=== PATIENT | male | born 1950 | race Caucasian/White ===

== ENCOUNTER 2016-03-30 21:35 | Emergency (ER) | payer BC, OTHER ==
[~2016-03-30] VITALS: Ht 185.4 cm; Wt 136.5 kg
[~2016-03-30 21:35] MED LIST: CLB/200 PO; DILT120C68 PO; HYDR1TAB2 PO; OXYC20TA50 PO; XRL10 PO
[2016-03-30] MEDS ORDERED: SODIUM CHLORIDE 0.9% 1000ML 1,000 ML IV STA ×2 (22:04)
[2016-03-30] MEDS ORDERED: IBUPROFEN 800 MG TAB PO STA (22:04)
[2016-03-30] MEDS ORDERED: ACETAMINOPHEN 500 MG TAB PO STA (22:04)
[2016-03-30] MEDS ORDERED: ALBUT/IPRATROP 3MG/0.5MG NEB 3 ML VIAL INH STA (22:08)
[2016-03-30 22:21] VITALS: O2SAT 98; Ht 185.4 cm; Wt 136.5 kg
[2016-03-30] MEDS ORDERED: IBUPROFEN 200 MG TAB ONE (22:22)
[2016-03-30] MEDS ORDERED: IBUPROFEN 600 MG TAB ONE (22:23)
[2016-03-30] MEDS ORDERED: PHEN-582 PO (22:42)
--- NOTE | 2016-03-30 22:44 | DIAGNOSTIC IMAGING REPORT ---
CHEST ONE VIEW PORTABLE CLINICAL HISTORY: Sepsis dyspnea COMPARISON STUDY: 02/22/2012 FINDINGS: Mild stable cardiomegaly. Mild increase in prominence of pulmonary vasculature. Early congestive failure must be considered IMPRESSION: Possible early congestive failure Electronically signed by: Ted Gomes M.D. 03/30/2016 10:43 PM Dictated Date/Time: 03/30/2016 10:42 PM
[2016-03-30 22:57] LABS: BASO % 0.1 %; BASO ABS # 0.01 K/uL (0-0.2); COMPLETE YES; EOS % 1.3 %; IG% 0.3 %; LYMPH % 12.9 %; MEAN CELL VOLUME 86.6 fL (80-100); MEAN CORPUSCULAR HEMOGLOBIN 30.9 pg (25-34); MEAN CORPUSCULAR HGB CONC 35.7 g/dl (32-36); MONO % 6.9 %; NEUT % 78.5 %; PLATELET COUNT 195 K/uL (130-400); RED BLOOD COUNT 4.04 M/uL (4.7-6.1); WHITE BLOOD COUNT 6.96 K/uL (4.8-10.8)
[2016-03-30 23:09] LABS: PROTHROMBIN TIME (PATIENT) 10.9 SECONDS (9.0-12.0)
[2016-03-30 23:17] LABS: ALT/SGPT 28 U/L (12-78); AST/SGOT 23 U/L (15-37); BLOOD UREA NITROGEN 20 mg/dl (7-18); BUN/CREATININE RATIO 18.4 (10-20); CALCIUM 8.5 mg/dl (8.5-10.1); CARBON DIOXIDE 25 mmol/L (21-32); CHLORIDE 108 mmol/L (98-107); GLUCOSE 84 mg/dl (70-99); MAGNESIUM 1.8 mg/dl (1.8-2.4); POTASSIUM 3.7 mmol/L (3.5-5.1); SODIUM 143 mmol/L (136-145)
[2016-03-30] MEDS ORDERED: CEFTRIAXONE SOD INJ 1 GM ADDVIAL IV STA (23:18)
[2016-03-30] MEDS ORDERED: AZITHROMYCIN 250 MG TAB PO STA (23:18)
[2016-03-30 23:21] LABS: ALB/GLOB RATIO 0.9 (0.9-2); ALKALINE PHOSPHATASE 67 U/L (45-117); CKMB/CK RATIO 0.6 (0-3.0)
[2016-03-31 00:41] LABS: INFLUENZA A PCR Neg for Influ A (NEG); INFLUENZA B PCR Neg for Influ B (NEG)
[2016-03-31 01:05] VITALS: BP 126/64; PULSE 81; TEMP 37.5; O2SAT 94
[2016-03-31] MEDS ORDERED: ALBUTEROL HFA 8 GM INHALER INH STA (01:12)
[2016-03-31] MEDS ORDERED: DOXY100C2 PO (01:12)
--- NOTE | 2016-03-31 04:41 | EMERGENCY ROOM VISIT NOTE ---
History First contact with patient: 21:59 Chief Complaint: FEVER Stated Complaint: FEVER, DIFFICULTY BREATHING History of Present Illness The patient is a 65 year old male who presents to the Emergency Room with complaints of fever, chills, cough, congestion for the past day. He did receive the flu vaccine. He's had pneumonia before and symptoms of similar. Patient complains of some shortness of breath. Patient denies abdominal pain, vomiting, diarrhea, headache, neck stiffness, sore throat, earache. His tolerate by mouth fluids but has a decreased appetite. is sick with similar symptoms. Review of Systems See HPI for pertinent positives & negatives. A total of 10 systems reviewed and were otherwise negative. Past Medical/Surgical History Pulmonary emboli Social History Smoking Status: Never Smoker Smokeless Tobacco Use: No Alcohol Use: none Drug Use: none Marital Status: Housing Status: lives with family Current/Historical Medications Scheduled Doxycycline Hyclate (Vibramycin), 100 MG PO BID [id number] W/ Apap (Tylenol Cold & Flu Severe), 2 TABS PO prn ud Allergies Coded Allergies: Naproxen (Verified Allergy, Intermediate, RASH/HIVES, 03/30/16) Iodinated Contrast Media (Verified Allergy, Unknown, UNKNOWN, 03/30/16) PER CT, PT STATES THAT ALLERGY WAS "MRI DYE" NOT CONTRAST; RADIOLOGIST AWARE Physical Exam Vital Signs Date Time Temp Pulse Resp B/P Pulse Ox O2 Delivery O2 Flow Rate FiO2 03/31/16 01:05 37.5 81 20 126/64 94 Room Air 03/31/16 00:32 94 03/30/16 23:29 92 20 149/66 95 Room Air 03/30/16 22:21 98 Room Air 03/30/16 21:45 38.0 85 20 146/77 98 Room Air Pain Rating (0-10): 0 Physical Exam VITALS: Vitals are noted on the nurse's note and reviewed by myself. Vital signs febrile. GENERAL: Pleasant male, in no acute distress, nondiaphoretic, well-developed well-nourished. SKIN: The skin was without rashes, erythema, edema, or bruising. There is no tenting of the skin. Capillary reflex less than 2 seconds. HEAD: Normocephalic atraumatic. EARS: External auditory canals clear, tympanic membranes pearly sargent without erythema or effusion bilaterally. EYES: Pupils equal round and reactive to light and accommodation. Conjunctivae without injection, sclerae without icterus. Extraocular movements intact. NOSE: Patent, turbinates without inflammation or discharge. No sinus tenderness. MOUTH: Mucous membranes mildly dry. Pharynx without erythema or exudate. Uvula midline. Airway patent. Tongue does not deviate. NECK: Supple without nuchal rigidity. No lymphadenopathy. No thyromegaly. Cervical spine is nontender. No JVD. No meningeal signs HEART: Regular rate and rhythm without murmurs gallops or rubs. LUNGS: Mild diffuse and expiratory wheezes, without rales or rhonchi. No dullness to percussion. No retractions or accessory muscle use. ABDOMEN: Positive bowel sounds x 4. Normal tympanic percussion. Soft, nontender, without masses or organomegaly. Chong sign negative. No guarding or rebound tenderness. MUSCULOSKELETAL: No muscle atrophy, erythema, or edema noted. NEURO: Patient was alert and oriented to person place and time. Normal sensation to light and sharp touch. No focal neurological deficits. Medical Decision & Procedures Laboratory Results 03/30/16 22:30 Red Blood Count 4.04, Mean Corpuscular Volume 86.6, Mean Corpuscular Hemoglobin 30.9, Mean Corpuscular Hemoglobin Concent 35.7, Mean Platelet Volume 9.0, Neutrophils (%) (Auto) 78.5, Lymphocytes (%) (Auto) 12.9, Monocytes (%) (Auto) 6.9, Eosinophils (%) (Auto) 1.3, Basophils (%) (Auto) 0.1, Neutrophils # (Auto) 5.46, Lymphocytes # (Auto) 0.90, Monocytes # (Auto) 0.48, Eosinophils # (Auto) 0.09, Basophils # (Auto) 0.01 03/30/16 22:30 Test 03/30/16 22:30 03/30/16 22:32 03/30/16 22:56 White Blood Count 6.96 K/uL (4.8-10.8) Red Blood Count 4.04 M/uL (4.7-6.1) Hemoglobin 12.5 g/dL (14.0-18.0) Hematocrit 35.0 % (42-52) Mean Corpuscular Volume 86.6 fL (80-100) Mean Corpuscular Hemoglobin 30.9 pg (25-34) Mean Corpuscular Hemoglobin Concent 35.7 g/dl (32-36) Platelet Count 195 K/uL (130-400) Mean Platelet Volume 9.0 fL (7.4-10.4) Neutrophils (%) (Auto) 78.5 % Lymphocytes (%) (Auto) 12.9 % Monocytes (%) (Auto) 6.9 % Eosinophils (%) (Auto) 1.3 % Basophils (%) (Auto) 0.1 % Neutrophils # (Auto) 5.46 K/uL (1.4-6.5) Lymphocytes # (Auto) 0.90 K/uL (1.2-3.4) Monocytes # (Auto) 0.48 K/uL (0.11-0.59) Eosinophils # (Auto) 0.09 K/uL (0-0.5) Basophils # (Auto) 0.01 K/uL (0-0.2) RDW Standard Deviation 40.8 fL (36.4-46.3) RDW Coefficient of Variation 12.8 % (11.5-14.5) Immature Granulocyte % (Auto) 0.3 % Immature Granulocyte # (Auto) 0.02 K/uL (0.00-0.02) Prothrombin Time 10.9 SECONDS (9.0-12.0) Prothromb Time International Ratio 1.0 (0.9-1.1) Activated Partial Thromboplast Time 25.4 SECONDS (21.0-31.0) Partial Thromboplastin Ratio 1.0 Anion Gap 10.0 mmol/L (3-11) Est Creatinine Clear Calc Drug Dose 98.4 ml/min Estimated GFR () 81.8 Estimated GFR (Non- 70.6 BUN/Creatinine Ratio 18.4 (10-20) Calcium Level 8.5 mg/dl (8.5-10.1) Magnesium Level 1.8 mg/dl (1.8-2.4) Total Bilirubin 1.1 mg/dl (0.2-1) Aspartate Amino Transf (AST/SGOT) 23 U/L (15-37) Alanine Aminotransferase (ALT/SGPT) 28 U/L (12-78) Alkaline Phosphatase 67 U/L (45-117) Total Creatine Kinase 118 U/L (39-308) Creatine Kinase MB 0.7 ng/ml (0.5-3.6) Creatine Kinase MB Ratio 0.6 (0-3.0) Troponin I < 0.015 ng/ml (0-0.045) Pro-B-Type Natriuretic Peptide 187 pg/ml (0-900) Total Protein 7.5 gm/dl (6.4-8.2) Albumin 3.6 gm/dl (3.4-5.0) Globulin 3.9 gm/dl (2.5-4.0) Albumin/Globulin Ratio 0.9 (0.9-2) Influenza Type A (RT-PCR) Neg for Influ A (NEG) Influenza Type B (RT-PCR) Neg for Influ B (NEG) Bedside Lactic Acid Venous 0.97 mmol/L (0.90-1.70) Medications Administered Medications (Trade) Dose Ordered Sig/Debi Route Start Time Stop Time Status Last Admin Dose Admin Acetaminophen 1000 mg 1,000 mg NOW STAT PO 03/30/16 22:04 03/30/16 22:07 DC 03/30/16 22:44 1,000 MG Sodium Chloride 1,000 ml @ 999 mls/hr Q1H1M STAT IV 03/30/16 22:04 03/30/16 23:04 DC 03/30/16 22:43 999 MLS/HR Sodium Chloride (Nss 1000ml) 1,000 ml @ 125 mls/hr Q8H STAT IV 03/30/16 22:04 03/31/16 02:20 DC 03/30/16 22:43 125 MLS/HR Albuterol/ Ipratropium (Duoneb) 3 ml NOW STAT INH 03/30/16 22:08 03/30/16 22:09 DC 03/30/16 22:44 3 ML Ibuprofen (Advil Tab) 200 mg STK-MED ONCE .ROUTE 03/30/16 22:22 03/30/16 22:25 DC 03/30/16 22:44 200 MG Ibuprofen (Motrin Tab) 600 mg STK-MED ONCE .ROUTE 03/30/16 22:23 03/30/16 22:25 DC 03/30/16 22:45 600 MG Ceftriaxone Sodium (Rocephin Inj) 1 gm NOW STAT IV 03/30/16 23:18 03/30/16 23:20 DC 03/31/16 00:02 1 GM Azithromycin (Zithromax Tab) 500 mg NOW STAT PO 03/30/16 23:18 03/30/16 23:20 DC 03/31/16 00:02 500 MG Albuterol (Ventolin Hfa Inhaler) 2 puffs ONE STAT INH 03/31/16 01:12 03/31/16 01:13 DC 03/31/16 01:18 2 PUFFS ED Course Prior records/ancillary studies reviewed. Triage Nursing notes reviewed. Additional history obtained from family The patient's history was concerning for fever. Differential diagnosis: Etiologies such as viral syndrome, otitis, pharyngitis, pneumonia, influenza, meningitis, urinary tract infection, sepsis, bacteremia, as well as others were entertained. Physical examination: Patient was alert, interactive ER treatment provided: Nebulizer, Rocephin, Zithromax, steroids On reassessment the patient felt better. Diagnostics interpreted by me: EKG: Normal sinus, no acute ST-T wave changes, right bundle branch block, normal rate. Impression right bundle branch block interpreted by myself unchanged from prior per chart review The labs revealed no leukocytosis. Negative flu. Normal BNP negative lactic acid Imaging studies: Chest x-ray concerning for right lower lobe pneumonia per my interpretation. No pneumothorax This appears to be consistent with pneumonia. Patient felt much better after being medicated as above. Walking pulse ox is 95%. He requested to leave. I felt this is reasonable. He had no white count. Negative lactic acid. He was not hypoxic. He was advised to rest, take antibiotics as directed and to follow -up family care in a few days or here in the ER sooner for high fevers, lethargy , difficulty breathing, worsening signs or symptoms or as needed. Patient had no signs of meningitis. No overt signs of sepsis. By the evaluation outlined above emergent etiologies such as otitis, pharyngitis, meningitis, urinary tract infection, sepsis, bacteremia, as well as others were deemed relatively unlikely. The pt informed about the findings as listed above. All questions were answered and pleased with the treatment. Return instructions were outlined and the patient was discharged in stable condition. Outpatient prescription management: doxy Referral: The patient was referred back to their primary care physician for follow-up in 2 to 3 days for a recheck of the current condition. 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 You were given medications in the ER that can affect your ability to safely function or operate a vehicle. Doxycycline 100mg: Take one pill twice daily for seven days for your infection. Take with food, but avoid dairy. Avoid prolonged sun exposure since this medication makes you temporarily more susceptible to sunburns. All antibiotics can cause diarrhea. If this occurs and you feel worse or it does not resolve in 1-2 days follow up with your doctor or return to the Emergency Department as this could be signs of serious underlying problems. Any medication can cause an allergic reaction, stop the pills immediately and return to the ER for rash, hives, breathing difficulties, or swelling. Albuterol Inhaler: Take 2 puffs four times daily for seven days, then as needed. Acetaminophen(Tylenol) may be used for fever or pain. Use 1000mg every six hours as needed. Avoid using more than 3000mg in a 24 hour period. AND/OR Ibuprofen(Motrin, Advil) may be used for fever or pain. Use 600mg every six hours as needed. Take with food. Avoid using more than 2400mg in a 24 hour period. Do not use 2400mg per day for more than three consecutive days without physician direction. Prolonged inappropriate use can lead to stomach upset or ulcers. Controlling your fever with Tylenol and Ibuprofen as above will make you feel better. Rest and drink plenty of fluids. Avoid strenuous activity until your symptoms resolve and your breathing returns to normal. Continue current medications. Return to the ER for chest pain, difficulty breathing, persistent fevers, vomiting, worsening of your condition, or as needed. Follow-up with family care in 2-3 days. Work Instructions Return To Work: 2 days Problem Qualifiers Primary Impression: Pneumonia Pneumonia type: due to unspecified organism Laterality: right Lung location : lower lobe of lung Qualified Codes: J18.1 - Lobar pneumonia, unspecified organism
[2016-09-04] MEDS ORDERED: TPRSR25 PO (13:53)
[2016-09-04] MEDS ORDERED: RIVA1TAB4 PO (14:46)
[2016-09-15] MEDS ORDERED: BTP80 PO (11:15)
[2016-10-11] MEDS ORDERED: SOTA120T6 PO (14:59)
== END 2016-03-31 01:22 | disposition home or self-care (01) ==
LOC: C.EDB 21:37 → C.EDC 03-31 01:22
DX: J18.1 Lobar pneumonia, unspecified organism (principal); Z86.711 Personal history of pulmonary embolism

== ENCOUNTER 2016-09-01 21:42 | Inpatient (IN) | payer OTHER ==
[~2016-09-01] VITALS: Ht 182.9 cm; Wt 136.9 kg
[~2016-09-01 21:42] MED LIST changes: -CLB/200 PO; -DILT120C68 PO; +DOXY100C2 PO; -HYDR1TAB2 PO; -OXYC20TA50 PO; +PHEN-582 PO; -XRL10 PO
[2016-09-01] MEDS ORDERED: DILTIAZEM HCL 5 MG/ML 5 ML VIAL ONE (22:02)
[2016-09-01] MEDS ORDERED: ACETAMINOPHEN 500 MG TAB PO STA (22:05)
[2016-09-01] MEDS ORDERED: DILTIAZEM HCL 5 MG/ML 5 ML VIAL IV STA (22:22)
[2016-09-01 22:46] LABS: PARTIAL THROMBOPLASTIN RATIO 0.9; PROTHROMBIN TIME (PATIENT) 10.9 SECONDS (9.0-12.0)
--- NOTE | 2016-09-01 22:47 | DIAGNOSTIC IMAGING REPORT ---
CHEST ONE VIEW PORTABLE CLINICAL HISTORY: Sepsis CHEST PAIN COMPARISON STUDY: 03/30/2016 FINDINGS: The heart remains enlarged. There is mild pulmonary venous hypertension. There is no focal pulmonary consolidation. There are no pleural effusions. There is a scoliosis.[ IMPRESSION: Cardiomegaly and mild pulmonary venous hypertension. No evidence of focal pulmonary consolidation Electronically signed by: Jake Smith M.D. 09/01/2016 10:46 PM Dictated Date/Time: 09/01/2016 10:45 PM
[2016-09-01 22:54] LABS: BASO % 0.2 %; BASO ABS # 0.02 K/uL (0-0.2); COMPLETE YES; EOS % 0.3 %; HEMATOCRIT 39.1 % (42-52); IG% 0.3 %; LYMPH % 17.6 %; LYMPH ABS # 2.09 K/uL (1.2-3.4); MEAN CELL VOLUME 89.5 fL (80-100); MEAN CORPUSCULAR HEMOGLOBIN 31.1 pg (25-34); MEAN CORPUSCULAR HGB CONC 34.8 g/dl (32-36); MEAN PLATELET VOLUME 9.7 fL (7.4-10.4); MONO % 7.2 %; NEUT % 74.4 %; PLATELET COUNT 297 K/uL (130-400); RED BLOOD COUNT 4.37 M/uL (4.7-6.1)
[2016-09-01 22:56] LABS: BUN/CREATININE RATIO 16.9 (10-20); CREATININE 1.3 mg/dl (0.60-1.40); POTASSIUM 3.8 mmol/L (3.5-5.1)
[2016-09-01 22:59] LABS: ALB/GLOB RATIO 0.9 (0.9-2)
[2016-09-01] MEDS ORDERED: LACTATED RINGER'S 1000ML 1,000 ML IV SCH (23:15)
[2016-09-01 23:22] LABS: MAGNESIUM 1.9 mg/dl (1.8-2.4)
[2016-09-01] MEDS ORDERED: DILTIAZEM BOLUS / DRIP IV STA (23:22)
[2016-09-01 23:39] LABS: THYROID STIMULATING HORMONE 1.54 uIu/ml (0.300-4.500)
[2016-09-01] MEDS ORDERED: HEPARIN IV LOW DOSE NO BOLUS SCH (23:40)
[2016-09-01] MEDS ORDERED: POTASSIUM CHLORIDE 10 MEQ TABCR PO STA (23:43)
[2016-09-01] MEDS ORDERED: METOPROLOL TARTRATE 50 MG TAB PO STA (23:44)
[2016-09-01] MEDS ORDERED: DILTIAZEM HCL INJ 125 MG in DEXTROSE 5% 100ML IV PRN (23:45)
[2016-09-02] VITALS (7 sets, daily range): BP systolic 113–140; BP diastolic 57–80; PULSE 69–116; TEMP 36.5–36.9; O2SAT 92–97; Ht 182.9 cm; Wt 136.9 kg
[2016-09-02] MEDS ORDERED: HEPARIN 25000 UNIT/500 ML D5W ONE (00:21)
[2016-09-02] MEDS ORDERED: METHYLPREDNISOLONE IV 125 MG in SYRINGE 0 ML IV STA (00:34)
--- NOTE | 2016-09-02 00:35 | EMERGENCY ROOM VISIT NOTE ---
History Report prepared by Chacorta: Dhara Heath Under the Supervision of: Dr. Alvino Townsend M.D. First contact with patient: 22:04 Chief Complaint: CHEST PAIN Stated Complaint: CHEST PAIN History of Present Illness The patient is a 66 year old male who presents to the Emergency Room with complaints of constant chest pain beginning 7 hours ago. The patient states that he has a history of atrial fibrillation and blood clots and reports that he is not on any blood thinners or medications. He notes that about 7 hours ago he was on a walk and began feeling some chest pain and pain with swallowing. He describes the pain as a soreness and notes that he has also been feeling slightly short of breath. The patient's states that the patient does get pneumonia easily and he has a family history of heart attacks. The patient states that he was initially diagnosed with atrial fibrillation 7 years ago and could not feel his fibrillation at that time either. He denies any recent illness, vomiting, diarrhea, LOC, lightheadedness, palpitations, cough, and history of heart attack. He reports that his pain is worsened with inhalation. Source of History: patient, spouse/significant other Onset: 7 hours ago Position: chest Quality: other (soreness) Modifying Factors (Worsening): other (inhalation) Associated Symptoms: + SOB, No LOC, No cough, No vomiting, No diarrhea Note: He denies any recent illness, lightheadedness, palpitations, and history of heart attack. Review of Systems See HPI for pertinent positives & negatives. A total of 10 systems reviewed and were otherwise negative. Past Medical & Surgical Medical Problems: (1) Afib (2) Atrial fibrillation (3) Hx of blood clots Family History FH: heart attack Social History Smoking Status: Never Smoker Alcohol Use: none Drug Use: none Marital Status: Housing Status: lives with family Current/Historical Medications No Active Prescriptions or Reported Meds Allergies Coded Allergies: Naproxen (Verified Allergy, Intermediate, RASH/HIVES, 09/01/16) Iodinated Contrast Media (Verified Allergy, Unknown, UNKNOWN, 09/01/16) PER CT, PT STATES THAT ALLERGY WAS "MRI DYE" NOT CONTRAST; RADIOLOGIST AWARE Physical Exam Vital Signs Date Time Temp Pulse Resp B/P (MAP) Pulse Ox O2 Delivery O2 Flow Rate FiO2 09/01/16 23:31 113 16 122/76 97 09/01/16 23:16 128 15 110/85 96 09/01/16 23:01 110 16 118/95 94 09/01/16 22:46 121 14 81/58 94 09/01/16 22:41 121/63 09/01/16 22:39 111/80 09/01/16 22:37 112 22 108/65 94 09/01/16 22:35 111/70 09/01/16 22:33 103/77 09/01/16 22:32 129 18 95 09/01/16 22:31 120/73 09/01/16 22:30 93/75 09/01/16 22:28 121/69 09/01/16 22:27 151 21 95 09/01/16 22:26 119/81 09/01/16 22:24 108/84 09/01/16 22:22 133 20 118/96 94 09/01/16 22:20 130/85 09/01/16 22:19 105/84 09/01/16 22:17 149 17 120/70 95 09/01/16 22:15 105/81 09/01/16 22:13 104/82 09/01/16 22:12 152 26 93 09/01/16 22:11 116/81 09/01/16 22:10 97 Room Air 09/01/16 22:10 97 Room Air 09/01/16 22:09 135/87 09/01/16 22:07 89 19 97/58 93 09/01/16 22:02 169 14 09/01/16 22:00 172 09/01/16 22:00 128/96 09/01/16 21:45 39.0 167 18 120/73 94 Room Air Physical Exam Constitutional: Vital signs reviewed. Eyes: Pupils are equal round reactive to light. Conjunctiva are noninjected. ENT: Pharynx is clear without erythema or exudate. Mucous membranes are moist. Neck supple without meningeal signs. Respiratory: Clear to auscultation bilaterally. Breath sounds are equal bilaterally. Cardiovascular: Tachycardic rate at 175 and rhythm. No rubs or gallops. GI: Soft, nondistended and nontender. Bowel sounds are present. Musculoskeletal: No peripheral edema. No lower extremity tenderness. Integumentary: No cyanosis. Neurological: The patient is awake and alert. No focal deficits. Psychiatric: Normal affect. Medical Decision & Procedures ER Provider Diagnostic Interpretation: X-ray results as stated below per interpretation by me and the radiologist: CHEST ONE VIEW PORTABLE FINDINGS: The heart remains enlarged. There is mild pulmonary venous hypertension. There is no focal pulmonary consolidation. There are no pleural effusions. There is a scoliosis.[ IMPRESSION: Cardiomegaly and mild pulmonary venous hypertension. No evidence of focal pulmonary consolidation Electronically signed by: Jake Smith M.D. 09/01/2016 10:46 PM Dictated Date/Time: 09/01/2016 10:45 PM Laboratory Results 09/01/16 22:10 Red Blood Count 4.37, Mean Corpuscular Volume 89.5, Mean Corpuscular Hemoglobin 31.1, Mean Corpuscular Hemoglobin Concent 34.8, Mean Platelet Volume 9.7, Neutrophils (%) (Auto) 74.4, Lymphocytes (%) (Auto) 17.6, Monocytes (%) (Auto) 7.2, Eosinophils (%) (Auto) 0.3, Basophils (%) (Auto) 0.2, Neutrophils # (Auto) 8.86, Lymphocytes # (Auto) 2.09, Monocytes # (Auto) 0.86, Eosinophils # (Auto) 0.04, Basophils # (Auto) 0.02 09/01/16 22:10 Test 09/01/16 22:10 09/01/16 22:16 09/01/16 22:45 White Blood Count 11.90 K/uL (4.8-10.8) Red Blood Count 4.37 M/uL (4.7-6.1) Hemoglobin 13.6 g/dL (14.0-18.0) Hematocrit 39.1 % (42-52) Mean Corpuscular Volume 89.5 fL (80-100) Mean Corpuscular Hemoglobin 31.1 pg (25-34) Mean Corpuscular Hemoglobin Concent 34.8 g/dl (32-36) Platelet Count 297 K/uL (130-400) Mean Platelet Volume 9.7 fL (7.4-10.4) Neutrophils (%) (Auto) 74.4 % Lymphocytes (%) (Auto) 17.6 % Monocytes (%) (Auto) 7.2 % Eosinophils (%) (Auto) 0.3 % Basophils (%) (Auto) 0.2 % Neutrophils # (Auto) 8.86 K/uL (1.4-6.5) Lymphocytes # (Auto) 2.09 K/uL (1.2-3.4) Monocytes # (Auto) 0.86 K/uL (0.11-0.59) Eosinophils # (Auto) 0.04 K/uL (0-0.5) Basophils # (Auto) 0.02 K/uL (0-0.2) RDW Standard Deviation 43.3 fL (36.4-46.3) RDW Coefficient of Variation 13.2 % (11.5-14.5) Immature Granulocyte % (Auto) 0.3 % Immature Granulocyte # (Auto) 0.03 K/uL (0.00-0.02) Prothrombin Time 10.9 SECONDS (9.0-12.0) Prothromb Time International Ratio 1.0 (0.9-1.1) Activated Partial Thromboplast Time 24.1 SECONDS (21.0-31.0) Partial Thromboplastin Ratio 0.9 Anion Gap 7.0 mmol/L (3-11) Est Creatinine Clear Calc Drug Dose 80.1 ml/min Estimated GFR () 66.4 Estimated GFR (Non- 57.3 BUN/Creatinine Ratio 16.9 (10-20) Calcium Level 9.0 mg/dl (8.5-10.1) Magnesium Level 1.9 mg/dl (1.8-2.4) Total Bilirubin 1.1 mg/dl (0.2-1) Aspartate Amino Transf (AST/SGOT) 39 U/L (15-37) Alanine Aminotransferase (ALT/SGPT) 47 U/L (12-78) Alkaline Phosphatase 66 U/L (45-117) Total Protein 7.7 gm/dl (6.4-8.2) Albumin 3.7 gm/dl (3.4-5.0) Globulin 4.0 gm/dl (2.5-4.0) Albumin/Globulin Ratio 0.9 (0.9-2) Thyroid Stimulating Hormone (TSH) 1.540 uIu/ml (0.300-4.500) Bedside Lactic Acid Venous 1.15 mmol/L (0.90-1.70) Bedside Troponin I < 0.030 ng/ml (0-0.045) Laboratory results as reviewed by me. Medications Administered Medications (Trade) Dose Ordered Sig/Debi Route Start Time Stop Time Status Last Admin Dose Admin Diltiazem HCl (Cardizem Inj) 25 mg STK-MED ONCE .ROUTE 09/01/16 22:02 09/01/16 22:03 DC 09/01/16 22:24 10 MG Acetaminophen (Tylenol Tab) 1,000 mg NOW STAT PO 09/01/16 22:05 09/01/16 22:08 DC 09/01/16 22:26 1,000 MG Diltiazem HCl (Cardizem Inj) 10 mg NOW STAT IV 09/01/16 22:22 09/01/16 22:23 DC 09/01/16 22:25 10 MG ECG Indication: chest pain Rate (beats per minute): 174 Rhythm: atrial fibrillation Findings: nonspecific-ST abn, RBBB ED Course 2200: The patient was evaluated in room C2. A complete history and physical exam was performed. 2204: Tylenol Tab 1000mg PO. Cardizem Inj 25mg. 222: I reevaluated the patient. His heart rate is in the 140s now. 2222: Cardizem Inj 10mg IV. 2236: He is in the 130s now and is normotensive. 2246: I reevaluated the patient and his heart rate is in the 110-120s. 2301: I spoke with Dr. Gordon of [facility]. We discussed the patient and his results. The patient will be further evaluated by Dr. Gordon. 2320: The heart rate is back up into the 140s. Dr. Gordon is talking to him and will decide whether or not to give him a CT of the chest to rule out PE. He has an allergy to contrast that gives him hives. He will be started on a Cardizem drip. Medical Decision This is a 66-year-old male who presents with chest pain and tachycardia and fever. Differential diagnosis includes A. fib with RVR, acute coronary syndrome , pneumonia, pulmonary embolism, UTI, sepsis. I did perform a limited focused review of portions of the patient's old chart on the electronic medical record. The patient was seen here in March and was diagnosed with pneumonia. I did evaluate the patient as noted above. The patient is presenting with chest pain starting several hours ago. He does not notice that he is tachycardic. He is also febrile here. His states that he gets pneumonia easily. He denies any coughing. IV access was established. The patient was placed on a continuous supervisor weaving. I did order and personally review the patient's 12-lead EKG and chest x-ray as described above. He does have A. fib with RVR with heart rate in the 170s. He was treated with IV Cardizem 2. His heart rate did improve significantly and went down to the 1 teens and 120s. It did come up again and I did start him on a Cardizem drip at 10 mg an hour IV. I did order and review the patient's blood work as noted in the electronic medical record. His white blood cell count is elevated. Troponin is negative. I did reassess the patient multiple times. I did discuss the test results with the patient. I was considering a CT of the chest to rule out PE but the patient states he has an allergy to contrast dye. I did discuss the case with Dr. Gordon who stated that he would place the patient on anticoagulation anyway because of the A. fib. He will work him up further in the hospital. Medication Reconcilliation Current Medication List: was personally reviewed by me Blood Pressure Screening Patient's blood pressure: Elevated blood pressure Blood pressure disposition: Elevated BP felt to be situational Consults Time Called: 2300 Consulting Physician: Dr. Evan Jeff Returned Call: [address] [facility]. We discussed the patient and his results. The patient will be further evaluated by Dr. Gordon. Impression Primary Impression: Atrial fibrillation with RVR Additional Impressions: Acute chest pain Febrile illness Critical Care I have personally spent 35 minutes of critical care time in the direct management of this patient. This includes bedside care, interpretation of diagnostic studies, and testing, discussion with consultants, patient, and family members, and other required patient management activities. This 35 minutes is in excess of all separately billable procedures. Scribe Attestation The scribe's documentation has been prepared under my direct and personally reviewed by me in its entirety. I confirm that the note above accurately reflects all work, treatment, procedures, and medical decision making performed by me. Departure Information Dispostion Being Evaluated By Hospitalist Prescriptions No Active Prescriptions or Reported Meds Referrals Aldo Castro D.O. (PCP) Patient Instructions My [facility] Problem Qualifiers
[2016-09-02] MEDS ORDERED: DiphenhydrAMINE INJ 25 MG in SYRINGE 0 ML IV ONE (00:45)
[2016-09-02] MEDS ORDERED: DEXTROSE 50% 50 ML SYR IV PRN (00:45)
[2016-09-02] MEDS ORDERED: TRAMADOL HCL 50 MG TAB PO PRN (00:45)
[2016-09-02] MEDS ORDERED: ACETAMINOPHEN 325 MG TAB PO PRN (00:45)
[2016-09-02] MEDS ORDERED: LACTATED RINGER'S 1000ML 1,000 ML IV ONE (00:45)
[2016-09-02] MEDS ORDERED: MoRPHine SULFATE 4 MG/ML 1 ML CARP\\VIAL IV PRN (00:45)
[2016-09-02] MEDS ORDERED: ONDANSETRON INJ 2 MG/ML 2 ML VIAL IV PRN (00:45)
[2016-09-02] MEDS ORDERED: LORAZEPAM 2 MG/ML 1 ML VIAL IV PRN (00:45)
[2016-09-02] MEDS ORDERED: GLUCAGON FOR INJ 1 MG VIAL SQ PRN (00:45)
[2016-09-02] MEDS ORDERED: OPTIRAY 320 IV PRN (01:15)
[2016-09-02] MEDS ORDERED: DiphenhydrAMINE HCL 50 MG/ML VIAL ONE (01:22)
[2016-09-02] MEDS ORDERED: METHYLPREDNISOLONE 125 MG VIAL ONE (01:22)
[2016-09-02] MEDS ORDERED: MAGNESIUM SULFATE 1GM / D5W 1 GM in PREMIXED IN D5W 100 ML IV ONE (02:00)
[2016-09-02] MEDS ORDERED: INSULIN GLARGINE SOLOSTAR 100 UNITS/ML 3 ML PEN SC ONE (02:00)
[2016-09-02] MEDS ORDERED: LORAZEPAM INJ 0.5 MG in SYRINGE 0.75 ML IV PRN (02:15)
[2016-09-02 02:30] LABS: URINE APPEARANCE CLEAR (CLEAR); URINE BILIRUBIN NEG (NEG); URINE COLOR YELLOW; URINE NITRITE NEG (NEG); URINE PH 5.5 (4.5-7.5); URINE SPECIFIC GRAVITY 1.023 (1.000-1.030); UROBILINOGEN NEG (NEG); ZZUR CULT IF INDIC CLEAN CATCH NO
[2016-09-02 02:33] LABS: MANUAL MICROSCOPIC REQUIRED? NO; REVIEW REQ? NO
--- NOTE | 2016-09-02 05:17 | History and Physical ---
History & Physical Date & Time of Service: Sep 02, 2016 at 05:17 Chief Complaint: Chest pain shortness of breath Primary Care Physician: Aldo Castro D.OJosie History of Present Illness Source: patient, clinic records, hospital records Recent confinement 2012 under orthopedic service for knee surgery. Yesterday patient woke up in the afternoon. He noted pleuritic left-sided chest discomfort nonradiating with shortness of breath. Ankles kind of swollen as per . No cough symptoms. No complaints of palpitations. Later on patient noted by to be febrile. At the emergency room, patient noted to be in rapid A. fib. Cardizem bolus followed by initiation of Cardizem drip. Chest discomfort a little better. 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 AILEEN as per records, patient yet to go for a sleep study Hyperlipidemia as per records Past tobacco abuse (not very long though as per ) Surgeries : Orthopedic procedures Dental surgery Tonsillectomy adenoidectomy Family History FH: heart attack Social History Smoking Status: Former Smoker Drug Use: none Marital Status: Housing status: lives with family Immunizations History of Influenza Vaccine: No History of Tetanus Vaccine?: Yes History of Pneumococcal: No History of Hepatitis B Vaccine: Yes Multi-Drug Resistant Organisms History of MDRO: No Allergies Coded Allergies: Naproxen (Verified Allergy, Intermediate, RASH/HIVES, 09/01/16) Iodinated Contrast Media (Verified Allergy, Unknown, UNKNOWN, 09/01/16) PER CT, PT STATES THAT ALLERGY WAS "MRI DYE" NOT CONTRAST; RADIOLOGIST AWARE Home Medications No Active Prescriptions or Reported Meds Review of Systems As per history of present illness, all other ROS negative Physical Exam Vital Signs Date Time Temp Pulse Resp B/P (MAP) Pulse Ox O2 Delivery O2 Flow Rate FiO2 09/02/16 04:00 Room Air 09/02/16 03:26 36.5 78 20 118/80 (93) 92 Room Air 09/02/16 01:50 36.9 116 18 119/57 93 Room Air 09/02/16 01:27 119 16 119/90 93 Room Air 09/02/16 01:01 37.3 105/74 09/02/16 00:55 104/67 09/02/16 00:51 115 22 94 7/22/17 00:36 137 24 95 09/02/16 00:21 117 29 95 09/02/16 00:06 119 21 95 09/01/16 23:51 141 23 96 09/01/16 23:36 120 16 95 09/01/16 23:31 113 16 122/76 97 09/01/16 23:16 128 15 110/85 96 09/01/16 23:01 110 16 118/95 94 09/01/16 22:46 121 14 81/58 94 09/01/16 22:41 121/63 09/01/16 22:39 111/80 09/01/16 22:37 112 22 108/65 94 09/01/16 22:35 111/70 09/01/16 22:33 103/77 09/01/16 22:32 129 18 95 09/01/16 22:31 120/73 09/01/16 22:30 93/75 09/01/16 22:28 121/69 09/01/16 22:27 151 21 95 09/01/16 22:26 119/81 09/01/16 22:24 108/84 09/01/16 22:22 133 20 118/96 94 09/01/16 22:20 130/85 09/01/16 22:19 105/84 09/01/16 22:17 149 17 120/70 95 09/01/16 22:15 105/81 09/01/16 22:13 104/82 09/01/16 22:12 152 26 93 09/01/16 22:11 116/81 09/01/16 22:10 97 Room Air 09/01/16 22:10 97 Room Air 09/01/16 22:09 135/87 09/01/16 22:07 89 19 97/58 93 09/01/16 22:02 169 14 09/01/16 22:00 172 09/01/16 22:00 128/96 09/01/16 21:45 39.0 167 18 120/73 94 Room Air General Appearance: + pertinent finding (obese) Head: normocephalic, + pertinent finding (alopecia) Eyes: + pertinent finding (pink palpebral conjunctivae, dry buccal mucosa) Neck: + pertinent finding (short) Respiratory/Chest: + decreased breath sounds Cardiovascular: + tachycardia, + irregularly irregular Abdomen/GI: + pertinent finding (some distention) Extremities/Musculoskelatal: non-tender, + pertinent finding (minimal lower extremity swelling) Neurologic/Psych: alert Skin: normal color Diagnostics Laboratory Results Results Past 24 Hours Test 09/01/16 22:10 09/01/16 22:16 09/01/16 22:45 09/02/16 02:00 Range/Units White Blood Count 11.90 4.8-10.8 K/uL Red Blood Count 4.37 4.7-6.1 M/uL Hemoglobin 13.6 14.0-18.0 g/dL Hematocrit 39.1 42-52 % Mean Corpuscular Volume 89.5 80-100 fL Mean Corpuscular Hemoglobin 31.1 25-34 pg Mean Corpuscular Hemoglobin Concent 34.8 32-36 g/dl Platelet Count 297 130-400 K/uL Mean Platelet Volume 9.7 7.4-10.4 fL Neutrophils (%) (Auto) 74.4 % Lymphocytes (%) (Auto) 17.6 % Monocytes (%) (Auto) 7.2 % Eosinophils (%) (Auto) 0.3 % Basophils (%) (Auto) 0.2 % Neutrophils # (Auto) 8.86 1.4-6.5 K/uL Lymphocytes # (Auto) 2.09 1.2-3.4 K/uL Monocytes # (Auto) 0.86 0.11-0.59 K/uL Eosinophils # (Auto) 0.04 0-0.5 K/uL Basophils # (Auto) 0.02 0-0.2 K/uL RDW Standard Deviation 43.3 36.4-46.3 fL RDW Coefficient of Variation 13.2 11.5-14.5 % Immature Granulocyte % (Auto) 0.3 % Immature Granulocyte # (Auto) 0.03 0.00-0.02 K/uL Prothrombin Time 10.9 9.0-12.0 SECONDS Prothromb Time International Ratio 1.0 0.9-1.1 Activated Partial Thromboplast Time 24.1 21.0-31.0 SECONDS Partial Thromboplastin Ratio 0.9 Sodium Level 141 136-145 mmol/L Potassium Level 3.8 3.5-5.1 mmol/L Chloride Level 108 98-107 mmol/L Carbon Dioxide Level 26 21-32 mmol/L Anion Gap 7.0 3-11 mmol/L Blood Urea Nitrogen 22 7-18 mg/dl Creatinine 1.30 0.60-1.40 mg/dl Est Creatinine Clear Calc Drug Dose 80.1 ml/min Estimated GFR () 66.4 Estimated GFR (Non- 57.3 BUN/Creatinine Ratio 16.9 10-20 Random Glucose 119 70-99 mg/dl Calcium Level 9.0 8.5-10.1 mg/dl Magnesium Level 1.9 1.8-2.4 mg/dl Total Bilirubin 1.1 0.2-1 mg/dl Aspartate Amino Transf (AST/SGOT) 39 15-37 U/L Alanine Aminotransferase (ALT/SGPT) 47 12-78 U/L Alkaline Phosphatase 66 45-117 U/L Total Protein 7.7 6.4-8.2 gm/dl Albumin 3.7 3.4-5.0 gm/dl Globulin 4.0 2.5-4.0 gm/dl Albumin/Globulin Ratio 0.9 0.9-2 Thyroid Stimulating Hormone (TSH) 1.540 0.300-4.500 uIu/ml Bedside Lactic Acid Venous 1.15 0.90-1.70 mmol/L Bedside Troponin I < 0.030 0-0.045 ng/ml Urine Color YELLOW Urine Appearance CLEAR CLEAR Urine pH 5.5 4.5-7.5 Urine Specific [place] 1.023 1.000-1.030 Urine Protein NEG NEG Urine Glucose (UA) NEG NEG Urine Ketones NEG NEG Urine Occult Blood NEG NEG Urine Nitrite NEG NEG Urine Bilirubin NEG NEG Urine Urobilinogen NEG NEG Urine Leukocyte Esterase NEG NEG Test 09/02/16 04:44 Range/Units Microbiology Results 09/01/16 Blood Culture, Received Pending 09/01/16 Blood Culture, Received Pending other (cardiomegaly, mild pulmonary venous hypertension) EKG As per my interpretation: Rate 170s, A. fib, right bundle branch block Impression Assessment and Plan AP New onset A. fib Secondary to fever No obvious source of infection for now Rule out recurrent pulmonary embolism as precipitant with complaints of pleuritic chest pain History PSVT as per records Past tobacco abuse Probable AILEEN as per records, patient not too keen on going for an outpatient sleep study PCU Antipyretic Cultures, hold off on antibiotics for now until definite focus found for infection Initiate beta makenzie for rate control, wean off Cardizem drip started in the ER IV heparin for thromboembolic prevention CT chest PE study 2-D echo re: chest pain Cardiology consult new onset A. fib DVT prophylaxis heparin Full code Advanced Directives Existing Living Will: No Existing Power of Instrument And Control Technician: No VTE Prophylaxis VTE Risk Assessment Done? Y/N: Yes Risk Level: High
[2016-09-02] MEDS ORDERED: PERFLUTREN LIPID MICROSPHERE (DEFINITY) IV ONE (07:16)
[2016-09-02 07:44] LABS: BASO % 0.1 %; BASO ABS # 0.01 K/uL (0-0.2); COMPLETE YES; HEMATOCRIT 37.7 % (42-52); IG% 0.2 %; LYMPH % 15.5 %; LYMPH ABS # 1.45 K/uL (1.2-3.4); MEAN CELL VOLUME 88.3 fL (80-100); MEAN CORPUSCULAR HEMOGLOBIN 29.7 pg (25-34); MEAN CORPUSCULAR HGB CONC 33.7 g/dl (32-36); MEAN PLATELET VOLUME 9.4 fL (7.4-10.4); MONO % 2.5 %; NEUT % 81.7 %; PLATELET COUNT 235 K/uL (130-400); RED BLOOD COUNT 4.27 M/uL (4.7-6.1); WHITE BLOOD COUNT 9.35 K/uL (4.8-10.8)
[2016-09-02 08:02] LABS: PARTIAL THROMBOPLASTIN RATIO 1.2
[2016-09-02 08:11] LABS: BLOOD UREA NITROGEN 19 mg/dl (7-18); BUN/CREATININE RATIO 15.7 (10-20); CALCIUM 8.9 mg/dl (8.5-10.1); CARBON DIOXIDE 25 mmol/L (21-32); CHLORIDE 109 mmol/L (98-107); GLUCOSE 163 mg/dl (70-99); POTASSIUM 3.9 mmol/L (3.5-5.1); SODIUM 140 mmol/L (136-145)
[2016-09-02] MEDS ORDERED: HEPARIN IV BOLUS 4,500 UNIT in SYRINGE 0 ML IV STA (08:40)
[2016-09-02] MEDS: HEPARIN 25000 UNIT/ D5W 500 ML (PHARMACY PREPARED) IV PRN ×6 (08:56→19:42)
[2016-09-02] MEDS ORDERED: METOPROLOL TARTRATE 25 MG TAB PO SCH (09:00)
--- NOTE | 2016-09-02 09:23 | DIAGNOSTIC IMAGING REPORT ---
CT ANGIOGRAPHY OF THE CHEST, PULMONARY EMBOLUS PROTOCOL CLINICAL HISTORY: Chest pain. COMPARISON STUDY: Chest CT October 22, 2012 and chest radiograph September 01, 2016. TECHNIQUE: Patient was premedicated for an IV dye allergy. Following IV administration of 94 mL of [id number]-[id number], helical axial images of the chest were obtained utilizing the pulmonary embolus protocol. Maximal intensity projections and sagittal and coronal reformats were viewed on an independent 3D workstation. IV contrast was administered without complication. A dose lowering technique was utilized adhering to the principles of ALARA. CT DOSE: 828.16 mGy.cm FINDINGS: No pulmonary emboli are identified. The heart is mildly enlarged. There is no evidence of thoracic aortic dissection. No enlarged thoracic lymph nodes are present. The thyroid gland is enlarged. This is similar to prior exams. Groundglass opacities within the lungs favor atelectasis. There is no pneumothorax or pleural effusion. There are gallstones within the gallbladder. IMPRESSION: 1. No pulmonary emboli identified. 2. No acute intrathoracic findings. 3. Cholelithiasis. Electronically signed by: Donald Sr M.D. 09/02/2016 9:21 AM Dictated Date/Time: 09/02/2016 9:16 AM
[2016-09-02] MEDS: DILTIAZEM HCL INJ 125 MG in DEXTROSE 5% 100ML 100 ML IV SCH ×2 (10:14→11:11)
--- NOTE | 2016-09-02 10:24 | Progress Note ---
Internal Med Progress Note Date of Service: Sep 02, 2016. Provider Documentation: SUBJECTIVE: Patient denies any chest pain, palpitations No SOB, cough, fever, chills, leg swelling. No nausea, vomiting, diarrhea, headaches Tele- A fib , rate controlled on IV Diltiazem drip On IV Heparin drip OBJECTIVE: Vital Signs-as noted below Exam: General-AAOX3, no distress Neck-Supple, No JVD Lungs-AEBE, no wheezing, rales Heart-Irregularly irregular rhythm Extremities-No edema Lab data as noted below. ASSESSMENT & PLAN: NEW ONSET ATRIAL FIBRILLATION -In setting of fever spike. No prior hx of Atrial fibrillation -Rate controlled while on IV drip -IV Diltiazem 5 mg -Metoprolol 25 mg PO BID -Anticoagulation: On IV Heparin drip. Discussed about option of coumadin vs xarelto. -Cardiology consulted. FEVER SPIKE Fever of 102 at home with no localized signs of infection -Monitor Temp and W/F signs of infection -No indication of antibiotics. -Cultures- pending HX OF PE 6-7 years ago was diagnosed with DVT/PE, probably provoked as was taken off coumadin after 3-6 months -Clinically no signs of PE -CT chest ordered- follow up History PSVT as per records -On tele monitor PROBABLE AILEEN as per records, patient not too keen on going for an outpatient sleep study MORBID OBESITY BMI 40 DVT prophylaxis heparin FULL CODE DISPOSITION Continue with tele monitoring Vital Signs: Date Time Temp Pulse Resp B/P (MAP) Pulse Ox O2 Delivery O2 Flow Rate FiO2 09/02/16 08:20 Room Air 09/02/16 07:35 36.5 69 18 122/66 (84) 96 09/02/16 04:00 Room Air 09/02/16 03:26 36.5 78 20 118/80 (93) 92 Room Air 09/02/16 01:50 36.9 116 18 119/57 93 Room Air 09/02/16 01:27 119 16 119/90 93 Room Air 09/02/16 01:01 37.3 105/74 09/02/16 00:55 104/67 09/02/16 00:51 115 22 94 09/02/16 00:36 137 24 95 09/02/16 00:21 117 29 95 09/02/16 00:06 119 21 95 09/01/16 23:51 141 23 96 09/01/16 23:36 120 16 95 09/01/16 23:31 113 16 122/76 97 09/01/16 23:16 128 15 110/85 96 09/01/16 23:01 110 16 118/95 94 09/01/16 22:46 121 14 81/58 94 09/01/16 22:41 121/63 09/01/16 22:39 111/80 09/01/16 22:37 112 22 108/65 94 09/01/16 22:35 111/70 09/01/16 22:33 103/77 09/01/16 22:32 129 18 95 09/01/16 22:31 120/73 09/01/16 22:30 93/75 09/01/16 22:28 121/69 09/01/16 22:27 151 21 95 09/01/16 22:26 119/81 09/01/16 22:24 108/84 09/01/16 22:22 133 20 118/96 94 09/01/16 22:20 130/85 09/01/16 22:19 105/84 09/01/16 22:17 149 17 120/70 95 09/01/16 22:15 105/81 09/01/16 22:13 104/82 09/01/16 22:12 152 26 93 09/01/16 22:11 116/81 09/01/16 22:10 97 Room Air 09/01/16 22:10 97 Room Air 09/01/16 22:09 135/87 09/01/16 22:07 89 19 97/58 93 09/01/16 22:02 169 14 09/01/16 22:00 172 09/01/16 22:00 128/96 09/01/16 21:45 39.0 167 18 120/73 94 Room Air Lab Results: Results Past 24 Hours Test 09/01/16 22:10 09/01/16 22:16 09/01/16 22:45 09/02/16 02:00 Range/Units White Blood Count 11.90 4.8-10.8 K/uL Red Blood Count 4.37 4.7-6.1 M/uL Hemoglobin 13.6 14.0-18.0 g/dL Hematocrit 39.1 42-52 % Mean Corpuscular Volume 89.5 80-100 fL Mean Corpuscular Hemoglobin 31.1 25-34 pg Mean Corpuscular Hemoglobin Concent 34.8 32-36 g/dl Platelet Count 297 130-400 K/uL Mean Platelet Volume 9.7 7.4-10.4 fL Neutrophils (%) (Auto) 74.4 % Lymphocytes (%) (Auto) 17.6 % Monocytes (%) (Auto) 7.2 % Eosinophils (%) (Auto) 0.3 % Basophils (%) (Auto) 0.2 % Neutrophils # (Auto) 8.86 1.4-6.5 K/uL Lymphocytes # (Auto) 2.09 1.2-3.4 K/uL Monocytes # (Auto) 0.86 0.11-0.59 K/uL Eosinophils # (Auto) 0.04 0-0.5 K/uL Basophils # (Auto) 0.02 0-0.2 K/uL RDW Standard Deviation 43.3 36.4-46.3 fL RDW Coefficient of Variation 13.2 11.5-14.5 % Immature Granulocyte % (Auto) 0.3 % Immature Granulocyte # (Auto) 0.03 0.00-0.02 K/uL Prothrombin Time 10.9 9.0-12.0 SECONDS Prothromb Time International Ratio 1.0 0.9-1.1 Activated Partial Thromboplast Time 24.1 21.0-31.0 SECONDS Partial Thromboplastin Ratio 0.9 Sodium Level 141 136-145 mmol/L Potassium Level 3.8 3.5-5.1 mmol/L Chloride Level 108 98-107 mmol/L Carbon Dioxide Level 26 21-32 mmol/L Anion Gap 7.0 3-11 mmol/L Blood Urea Nitrogen 22 7-18 mg/dl Creatinine 1.30 0.60-1.40 mg/dl Est Creatinine Clear Calc Drug Dose 80.1 ml/min Estimated GFR () 66.4 Estimated GFR (Non- 57.3 BUN/Creatinine Ratio 16.9 10-20 Random Glucose 119 70-99 mg/dl Calcium Level 9.0 8.5-10.1 mg/dl Magnesium Level 1.9 1.8-2.4 mg/dl Total Bilirubin 1.1 0.2-1 mg/dl Aspartate Amino Transf (AST/SGOT) 39 15-37 U/L Alanine Aminotransferase (ALT/SGPT) 47 12-78 U/L Alkaline Phosphatase 66 45-117 U/L Total Protein 7.7 6.4-8.2 gm/dl Albumin 3.7 3.4-5.0 gm/dl Globulin 4.0 2.5-4.0 gm/dl Albumin/Globulin Ratio 0.9 0.9-2 Thyroid Stimulating Hormone (TSH) 1.540 0.300-4.500 uIu/ml Bedside Lactic Acid Venous 1.15 0.90-1.70 mmol/L Bedside Troponin I < 0.030 0-0.045 ng/ml Urine Color YELLOW Urine Appearance CLEAR CLEAR Urine pH 5.5 4.5-7.5 Urine Specific [place] 1.023 1.000-1.030 Urine Protein NEG NEG Urine Glucose (UA) NEG NEG Urine Ketones NEG NEG Urine Occult Blood NEG NEG Urine Nitrite NEG NEG Urine Bilirubin NEG NEG Urine Urobilinogen NEG NEG Urine Leukocyte Esterase NEG NEG Test 09/02/16 07:26 Range/Units White Blood Count 9.35 4.8-10.8 K/uL Red Blood Count 4.27 4.7-6.1 M/uL Hemoglobin 12.7 14.0-18.0 g/dL Hematocrit 37.7 42-52 % Mean Corpuscular Volume 88.3 80-100 fL Mean Corpuscular Hemoglobin 29.7 25-34 pg Mean Corpuscular Hemoglobin Concent 33.7 32-36 g/dl Platelet Count 235 130-400 K/uL Mean Platelet Volume 9.4 7.4-10.4 fL Neutrophils (%) (Auto) 81.7 % Lymphocytes (%) (Auto) 15.5 % Monocytes (%) (Auto) 2.5 % Eosinophils (%) (Auto) 0.0 % Basophils (%) (Auto) 0.1 % Neutrophils # (Auto) 7.64 1.4-6.5 K/uL Lymphocytes # (Auto) 1.45 1.2-3.4 K/uL Monocytes # (Auto) 0.23 0.11-0.59 K/uL Eosinophils # (Auto) 0.00 0-0.5 K/uL Basophils # (Auto) 0.01 0-0.2 K/uL RDW Standard Deviation 42.5 36.4-46.3 fL RDW Coefficient of Variation 13.3 11.5-14.5 % Immature Granulocyte % (Auto) 0.2 % Immature Granulocyte # (Auto) 0.02 0.00-0.02 K/uL Activated Partial Thromboplast Time 32.1 21.0-31.0 SECONDS Partial Thromboplastin Ratio 1.2 Sodium Level 140 136-145 mmol/L Potassium Level 3.9 3.5-5.1 mmol/L Chloride Level 109 98-107 mmol/L Carbon Dioxide Level 25 21-32 mmol/L Anion Gap 6.0 3-11 mmol/L Blood Urea Nitrogen 19 7-18 mg/dl Creatinine 1.20 0.60-1.40 mg/dl Est Creatinine Clear Calc Drug Dose 86.8 ml/min Estimated GFR () 73.1 Estimated GFR (Non- 63.1 BUN/Creatinine Ratio 15.7 10-20 Random Glucose 163 70-99 mg/dl Calcium Level 8.9 8.5-10.1 mg/dl Troponin I < 0.015 0-0.045 ng/ml Microbiology Results 09/01/16 Blood Culture, Received Pending 09/01/16 Blood Culture, Received Pending
--- NOTE | 2016-09-02 10:50 | ECHOCARDIOGRAM REPORT ---
*NOTICE TO RECEIVING REPUBLICAN AGENCY This information is strictly Confidential and protected under [place] law. [place] law prohibits you from making any further disclosure of this information unless further disclosure is expressly permitted by the written consent of the person to whom it pertains or is authorized by law. A general authorization for the release of medical or other information is not sufficient for this purpose. Hospital accepts no responsibility if the information is made available to any other person, INCLUDING THE PATIENT. Interpretation Summary * Name: SELWYN WEISS Study Date: 09/02/2016 06:46 AM BP: 118/80 mmHg * Patient Location: .2T\S\S241\S\1 HR: 78 * : 1950 (M/d/yyyy) Gender: Male Height: 72 in * Age: 66 yrs Ethnicity: CA Weight: 294 lb * Ordering Physician: Honorio Gordon * Referring Physician: Self, Referred * Performed By: Natalia Abrams RDCS * * Reason For Study: Atrial fibrillation * BSA: 2.5 m2 * -- Conclusions -- * The left ventricle is normal in size. * There is mild concentric left ventricular hypertrophy. * Left ventricular systolic function is normal. * The left ventricular wall motion is normal. * Ejection Fraction = 55-60%. * The left atrial size is normal. Procedure Details * A complete two-dimensional transthoracic echocardiogram was performed (2D, M-mode, Doppler and color flow Doppler). Left Ventricle * The left ventricle is normal in size. * There is mild concentric left ventricular hypertrophy. * Ejection Fraction = 55-60%. * Left ventricular systolic function is normal. * The left ventricular wall motion is normal. Right Ventricle * The right ventricle is normal in size and function. Atria * The left atrial size is normal. * Right atrial size is normal. * No ASD detected; PFO is not assessed. Mitral Valve * The mitral valve anatomy is normal. * There is no mitral valve stenosis. * There is trace mitral regurgitation. Tricuspid Valve * The tricuspid valve anatomy is normal. * There is no tricuspid stenosis. * There is trace tricuspid regurgitation. * Doppler findings do not suggest pulmonary hypertension. Aortic Valve * The aortic valve is trileaflet. * No hemodynamically significant valvular aortic stenosis. * No aortic regurgitation is present. Pulmonic Valve * The pulmonic valve is not well visualized. Great Vessels * The aortic root is normal size. Pericardium/Pleural * There is no pericardial effusion. Great Vessels * Normal inferior vena cava diameter and respiratory variation suggests normal central venous pressure. MMode 2D Measurements and Calculations IVSd 1.1 cm LVIDd 5.5 cm LVIDs 3.7 cm LVPWd 1.1 cm IVS/LVPW 1.0 FS 32.0 % EDV(Teich) 147.8 ml ESV(Teich) 59.8 ml EF(Teich) 59.6 % EDV(cubed) 166.9 ml ESV(cubed) 52.5 ml EF(cubed) 68.6 % LV mass(C)d 233.1 grams LV mass(C)dI 92.9 grams/m\S\2 SV(Teich) 88.0 ml SI(Teich) 35.1 ml/m\S\2 SV(cubed) 114.5 ml SI(cubed) 45.6 ml/m\S\2 Ao root diam 3.9 cm Ao root area 11.6 cm\S\2 ACS 2.9 cm LA dimension 3.2 cm asc Aorta Diam 3.3 cm LA/Ao 0.82 LVOT diam 2.1 cm LVOT area 3.4 cm\S\2 LVAd ap4 27.1 cm\S\2 LVLd ap4 7.6 cm EDV(MOD-sp4) 79.7 ml EDV(sp4-el) 82.2 ml LVAs ap4 16.3 cm\S\2 LVLs ap4 6.8 cm ESV(MOD-sp4) 34.1 ml ESV(sp4-el) 33.1 ml EF(MOD-sp4) 57.3 % EF(sp4-el) 59.8 % LVAd ap2 36.1 cm\S\2 LVLd ap2 7.6 cm EDV(MOD-sp2) 142.9 ml EDV(sp2-el) 145.9 ml LVAs ap2 22.3 cm\S\2 LVLs ap2 6.4 cm ESV(MOD-sp2) 64.5 ml ESV(sp2-el) 65.5 ml EF(MOD-sp2) 54.9 % EF(sp2-el) 55.1 % LVLd %diff 0.44 % EDV(MOD-bp) 106.7 ml LVLs %diff -5.89 % ESV(MOD-bp) 47.5 ml EF(MOD-bp) 55.5 % SV(MOD-sp4) 45.6 ml SI(MOD-sp4) 18.2 ml/m\S\2 SV(MOD-sp2) 78.4 ml SI(MOD-sp2) 31.3 ml/m\S\2 SV(MOD-bp) 59.2 ml SI(MOD-bp) 23.6 ml/m\S\2 SV(sp4-el) 49.2 ml SI(sp4-el) 19.6 ml/m\S\2 SV(sp2-el) 80.3 ml SI(sp2-el) 32.0 ml/m\S\2 Doppler Measurements and Calculations MV E max chriss 110.7 cm/sec MV dec time 0.25 sec Ao V2 max 78.9 cm/sec Ao max PG 2.5 mmHg Ao max PG (full) 1.6 mmHg LISHA(V,A) 2.0 cm\S\2 LISHA(V,D) 2.0 cm\S\2 LV V1 max PG 0.89 mmHg LV V1 max 47.2 cm/sec PA V2 max 59.2 cm/sec PA max PG 1.4 mmHg PA acc slope 393.1 cm/sec\S\2 PA acc time 0.11 sec TR max chriss 225.2 cm/sec PA pr(Accel) 29.0 mmHg
--- NOTE | 2016-09-02 12:22 | DIAGNOSTIC IMAGING REPORT ---
BILATERAL LOWER EXTREMITY VENOUS DOPPLER CLINICAL HISTORY: Leg swelling. COMPARISON STUDY: Bilateral lower extremity venous Doppler May 03, 2010. TECHNIQUE: Sonography of the deep venous system of the bilateral lower extremities was performed. Compression and augmentation were evaluated. FINDINGS: The bilateral common femoral, superficial femoral and popliteal veins were compressible. Augmentation was normal. Flow was shown within the deep calf vessels. IMPRESSION: No evidence of deep venous thrombus within the bilateral lower extremities. Electronically signed by: Donald Sr M.D. 09/02/2016 12:21 PM Dictated Date/Time: 09/02/2016 12:20 PM
[2016-09-02] MEDS ORDERED: POTASSIUM CHLORIDE 20 MEQ TABCR PO ONE (14:30)
[2016-09-02] MEDS ORDERED: METOPROLOL TARTRATE 25 MG TAB PO ONE (14:30)
[2016-09-02 16:28] LABS: PARTIAL THROMBOPLASTIN RATIO 1.4
[2016-09-02] MEDS ORDERED: NURSING VERBAL MED ORDER ONE (16:45)
[2016-09-02] MEDS ORDERED: HEPARIN IV BOLUS 4,500 UNIT in SYRINGE 0 ML IV ONE (17:00)
[2016-09-02] MEDS: METOPROLOL TARTRATE 25 MG TAB PO SCH ×2 (18:54→23:32)
[2016-09-03] VITALS (8 sets, daily range): BP systolic 105–117; BP diastolic 66–71; PULSE 86–135; TEMP 36.3–37.1; O2SAT 94–98
[2016-09-03 05:08] LABS: PARTIAL THROMBOPLASTIN RATIO 1.4
[2016-09-03] MEDS: METOPROLOL TARTRATE 25 MG TAB PO SCH ×3 (05:17→20:16)
[2016-09-03] MEDS: HEPARIN 25000 UNIT/ D5W 500 ML (PHARMACY PREPARED) IV PRN ×6 (05:29→20:18)
[2016-09-03] MEDS ORDERED: HEPARIN IV BOLUS 4,500 UNIT in SYRINGE 0 ML IV ONE (05:30)
[2016-09-03] MEDS ORDERED: METOPROLOL TARTRATE 25 MG TAB PO STA (09:50)
--- NOTE | 2016-09-03 09:53 | Progress Note ---
Internal Med Progress Note Date of Service: Sep 03, 2016. Provider Documentation: ] SUBJECTIVE : Patient denies any chest pain, palpitations. No SOB, cough, fever, chills, leg swelling. No nausea, vomiting, diarrhea, headaches Tele- A fib with RVR with HR up to 120s and on ambulation 130-140s OBJECTIVE: Vital Signs-as noted below Exam: General-AAOX3, no distress Neck-Supple, No JVD Lungs-AEBE, no wheezing, rales Heart-Irregularly irregular rhythm Extremities-No edema Lab data as noted below. ASSESSMENT & PLAN: NEW ONSET ATRIAL FIBRILLATION WITH RVR -In setting of fever spike. No prior hx of Atrial fibrillation -HR up to 120s and 130-140s on ambulation -Off IV Diltiazem 5 mg since yesterday -Metoprolol 25 mg PO q 6 hours ---> Increase dose per d/w Dr Zaldivar. -Anticoagulation: On IV Heparin drip. Discussed about option of coumadin vs xarelto. Okay with xarelto will check insurance coverage -Echo- Mild LVH, EF 55-60%, No valvular heart dz -Cardiology consulted-Discussed with Dr Zaldivar. Appreciate inputs. FEVER SPIKE Fever of 102 at home and 39 in ER, with no localized signs of infection -Monitor Temp and W/F signs of infection- afebrile so far, no leucocytosis -No indication of antibiotics. -Cultures- negative HX OF PE 6-7 years ago was diagnosed with DVT/PE, probably provoked as was taken off coumadin after 3-6 months -Clinically no signs of PE -CT chest ordered- No PE, no acute abnormalities, Cholelithiasis History PSVT as per records -On tele monitor PROBABLE AILEEN as per records, patient not too keen on going for an outpatient sleep study MORBID OBESITY BMI 40 DVT prophylaxis heparin FULL CODE DISPOSITION Continue with tele monitoring Continue to monitor A fib with RVR- requiring further dose adjustments Vital Signs: Date Time Temp Pulse Resp B/P (MAP) Pulse Ox O2 Delivery O2 Flow Rate FiO2 09/03/16 08:00 Room Air 09/03/16 07:37 36.3 88 19 107/66 (80) 98 Room Air 09/03/16 04:00 36.5 104 22 105/66 (79) 95 Room Air 09/03/16 04:00 Room Air 09/02/16 23:59 Room Air 09/02/16 23:59 36.5 102 20 140/75 (96) 95 Room Air 09/02/16 20:00 Room Air 09/02/16 19:49 36.8 93 22 125/79 (94) 97 Room Air 09/02/16 16:00 Room Air 09/02/16 15:39 36.9 79 22 113/70 (84) 96 Room Air 09/02/16 12:00 Room Air 09/02/16 11:48 36.6 79 18 129/64 (85) 96 Lab Results: Results Past 24 Hours Test 09/02/16 14:46 09/02/16 21:50 09/03/16 04:38 Range/Units Activated Partial Thromboplast Time 37.6 50.7 36.2 21.0-31.0 SECONDS Partial Thromboplastin Ratio 1.4 2.0 1.4
[2016-09-03 11:11] LABS: BUN/CREATININE RATIO 19.8 (10-20); CALCIUM 8.7 mg/dl (8.5-10.1); CREATININE 1.1 mg/dl (0.60-1.40); POTASSIUM 4.3 mmol/L (3.5-5.1)
--- NOTE | 2016-09-03 11:45 | CARDIOLOGY CONSULTATION ---
DATE OF CONSULTATION: 09/03/2016 The patient seen and examined. Chart, medications, telemetry reviewed. SUBJECTIVE: The patient notes no complaints, though heart rate continued to elevated with activity or exertion with baseline resting heart rates 100-115. Notes no chest pains, dizziness, lightheadedness, syncope or near syncope. Notes from prior personal review episodes and symptoms have been at least 1-2 weeks in duration. Notes no bleeding difficulties. Notes chronic pedal edema, stable. OBJECTIVE: VITAL SIGNS: Heart rate is 100, blood pressure is 107/66. NECK: Thick. There is no distinct jugular venous distention. LUNGS: Clear. CARDIOVASCULAR: Irreg irreg There is no S3 gallop. ABDOMEN: Obese, soft, nontender, without hepatosplenomegaly. EXTREMITIES: Without cyanosis or clubbing. There is a chronic 1+ bilateral lower extremity edema. LABORATORY DATA: Pending. IMAGING DATA: EKG today demonstrates atrial fibrillation with rapid ventricular response, dynamic elevation in ST segments and right ventricular conduction delay. IMPRESSION: A 66-year-old male presented with symptoms of shortness of breath, diaphoresis, tachypalpitations, pleuritic discomfort, possible transient fever, newly noted atrial fibrillation with rapid ventricular response. PLAN: Continue attempts at rate control. Specifically, will increase metoprolol to 50 mg t.i.d. Continue anticoagulation with IV heparin with plans to transition to target-oriented anticoagulant therapies. We will repeat EKG in a.m. Keep n.p.o. after midnight to allow use of additional therapies, i.e., EMERY-guided cardioversion if rate control becomes an issue. Will follow the patient in the hospital. JOSE E
--- NOTE | 2016-09-03 12:21 | CARDIOLOGY CONSULTATION ---
DATE OF CONSULTATION: 09/02/2016 REFERRING PHYSICIAN: Dr. Gordon. PRIMARY CARE PHYSICIAN: Dr. Castro. INDICATIONS: Atrial fibrillation with rapid ventricular response. HISTORY OF PRESENT ILLNESS: The patient is a 66-year-old male whose past history is notable for past DVT and pulmonary emboli, chronic mild venous insufficiency, history of recurrent bacterial pneumonias and suspected obstructive sleep apnea, who presents now this admission noting having had difficulties over at least a week's time of worsening exertional dyspnea, fatigue with an episode of severe diaphoresis, after ambulating past 4 days prior to admission. On day of admission, the patient had worsening symptoms of complaints of both tachypalpitations, chest pressure as well as elevated temperature, which resolved in ER presentation, temperature was 39 degrees. The patient on initial ER presentation was found to be in atrial fibrillation with rapid ventricular response. Heart rate has been slowed with IV diltiazem and the patient begun on IV anticoagulation. Initial laboratory studies have demonstrated mild elevation in white cell count and normal troponins. The patient is referred now for further evaluation. He notes substantial improvement in breathlessness and chest tightness since heart rate controlled. Would though felt no sense of tachypalpitations or awareness of an irregular heart rhythm. Denies current fevers. Notes no productive cough. Notes no melena, hematochezia, dysuria or hematuria. Notes no rash or arthritic complaint. Weight has been generally stable. Peripheral edema is chronic and venous insufficiency appears to be improved by patient and 's description over the past 2-3 days due to decreased activities, precipitated by above complaints. He notes no bleeding difficulties, notes no worsening headache or visual changes. Notes no acute weight loss or gain. ALLERGIES: NOTED TO BE IODINATED CONTRAST AND NAPROXEN. MEDICATIONS PRIOR TO HOSPITALIZATION: None. PAST SURGICAL HISTORY: Notable for prior cervical discectomy, bilateral total knee replacements, and remote tonsillectomy. FAMILY HISTORY: Positive for father having suffered myocardial infarction, ultimately succumbing to multiple MIs at age 58. Brother of a possible pneumonia at age 62, suddenly. SOCIAL HISTORY: The patient resides in [place]. 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 PHYSICAL EXAMINATION: VITAL SIGNS: Heart rate is 79, blood pressure is 129/64, and O2 saturation is 96% on room air. HEENT: Normocephalic and atraumatic. NECK: Thick. There is no jugular venous distention. There are no carotid bruits. LUNGS: Clear. CARDIOVASCULAR: Irregularly irregular. There is no S3 gallop. ABDOMEN: Soft and nontender. Obese. There is no palpable hepatosplenomegaly. EXTREMITIES: Without cyanosis or clubbing. There is no peripheral edema. There are intact distal pulses. DATA: EKG on presentation revealed atrial fibrillation with rapid ventricular response with right bundle branch block, chronic, present, rate was 174 on presentation, heart rate this morning reveals atrial fibrillation with mild ST doming in inferior leads, rate 75. Echocardiogram demonstrates mild left ventricular hypertrophy with normal left ventricular systolic function. No valvular disease. IMPRESSION: A 66-year-old male presents now with several days or weeks' history of worsening exertional dyspnea, diaphoresis, possibly in association with febrile illness as well, found to be in atrial fibrillation with rapid ventricular response on initial Emergency Room evaluation on presentation, heart rates have slowed with IV diltiazem and he has begun on anticoagulation with intravenous heparin. RECOMMENDATIONS: No signs or symptoms of acute coronary syndrome, though he does have cardiac risk factors of family history of premature coronary atherosclerosis. Will plan on controlling heart rate with beta blockers already initiated. Will increase metoprolol to 25 q. 6 hours and discontinue IV diltiazem. We will continue anticoagulation with IV heparin with anticipation of switching to a novel oral anticoagulant, as clinical course progresses. EKGs will be reviewed in a.m. Discussed all findings in detail with the patient and , completion of sleep apnea workup anticipated as outpatient on discharge. We will follow the patient in the hospital.
[2016-09-03 12:26] LABS: PARTIAL THROMBOPLASTIN RATIO 1.5
[2016-09-03] MEDS ORDERED: HEPARIN IV BOLUS 4,500 UNIT in SYRINGE 0 ML IV STA (12:44)
[2016-09-03 19:27] LABS: PARTIAL THROMBOPLASTIN RATIO 1.7
[2016-09-03] MEDS ORDERED: HEPARIN IV BOLUS 4,000 UNIT in SYRINGE 0 ML IV ONE (20:00)
[2016-09-03] MEDS ORDERED: METOPROLOL TARTRATE 1 MG/ML VIAL IV ONE (21:30)
[2016-09-03] MEDS ORDERED: SODIUM CHLORIDE 0.9% 250ML 250 ML IV ONE (21:30)
[2016-09-03] MEDS ORDERED: MAGNESIUM SULFATE 1GM / D5W 1 GM in PREMIXED IN D5W 100 ML IV ONE (21:30)
[2016-09-04] VITALS (10 sets, daily range): BP systolic 100–148; BP diastolic 66–91; PULSE 73–150; TEMP 36.9–37.2; O2SAT 93–99
[2016-09-04] MEDS: METOPROLOL TARTRATE 50 MG TAB PO SCH ×2 (00:01→05:24)
[2016-09-04] MEDS: HEPARIN 25000 UNIT/ D5W 500 ML (PHARMACY PREPARED) IV PRN ×4 (02:25→03:32)
[2016-09-04 02:49] LABS: PARTIAL THROMBOPLASTIN RATIO 1.7
[2016-09-04] MEDS ORDERED: HEPARIN IV BOLUS 4,000 UNIT in SYRINGE 0 ML IV ONE (03:15)
[2016-09-04] MEDS ORDERED: MIDAZOLAM HCL 1 MG/ML 2ML VIAL ONE (09:20)
[2016-09-04] MEDS ORDERED: FENTANYL CITRATE INJ 50 MCG/1 ML 2 ML VIAL ONE (09:20)
--- NOTE | 2016-09-04 10:26 | Cardiology Procedure Brief Nt ---
Preliminary Cardiology Note Procedure Date Sep 04, 2016. Pre-Procedure Diagnosis Atrial fibrillation with rapid ventricular repsonse Post-Procedure Diagnosis Successful EMERY guided synchronized electricla cardioversion Procedure(s) Performed Successful EMERY guided synchronized electricla cardioversion Professional Skater Zen Hse Specialist(s) None Estimated Blood Loss None Preliminary Findings Successful EMERY guided synchronized electrical cardioversion was performed using 150 J biphasic countershock Recommendations Medical management Fluids (cc crystalloids) 100 Specimens None Anesthesia Per consult Complication(s) None Disposition PCU
[2016-09-04] MEDS ORDERED: LIDOCAINE HCL 2% 2 ML VIAL (20MG/ML) ONE (10:27)
[2016-09-04] MEDS ORDERED: PROPOFOL IV EMULSION 10 MG/ML 20 ML VIAL IV ONE (10:27)
--- NOTE | 2016-09-04 10:38 | Anesthesiology Progress Note ---
Anesthesia Post Op Note Date & Time Sep 04, 2016 at 10:38 Vital Signs Pain Intensity: 0 Vital Signs Past 12 Hours Date Time Temp Pulse Resp B/P (MAP) Pulse Ox O2 Delivery O2 Flow Rate FiO2 09/04/16 10:33 80 15 146/91 (109) 98 Room Air 09/04/16 10:23 80 15 148/74 (98) 98 Room Air 09/04/16 10:20 73 16 148/91 93 Nasal Cannula 4 09/04/16 10:15 150 16 99 Nasal Cannula 4 09/04/16 10:10 129 16 113/89 99 Nasal Cannula 4 09/04/16 10:05 135 16 112/87 95 Nasal Cannula 4 09/04/16 10:00 115 16 114/74 95 Nasal Cannula 4 09/04/16 08:59 37.2 103 18 110/66 (81) 95 Room Air 09/04/16 08:20 98 Room Air 09/04/16 04:00 Room Air 09/04/16 03:15 37.0 82 20 118/76 (90) 98 Room Air 09/03/16 23:59 Room Air 09/03/16 22:52 37.1 86 18 106/68 (81) 96 Room Air Notes Mental Status: alert / awake / arousable, participated in evaluation Pt Amnestic to Procedure: Yes Nausea / Vomiting: adequately controlled Pain: adequately controlled Airway Patency, RR, SpO2: stable & adequate BP & HR: stable & adequate Hydration State: stable & adequate Anesthetic Complications: no major complications apparent
[2016-09-04 11:25] LABS: PARTIAL THROMBOPLASTIN RATIO 1.6
--- NOTE | 2016-09-04 11:40 | Progress Note ---
Internal Med Progress Note Date of Service: Sep 04, 2016. Provider Documentation: ] SUBJECTIVE : Patient is status post EMERY electrical cardioversion today. Denies any chest pain, palpitations. No SOB, cough, fever, chills, leg swelling. No nausea, vomiting, diarrhea, headaches. Tele- NSR now OBJECTIVE: Vital Signs-as noted below Exam: General-AAOX3, no distress Neck-Supple, No JVD Lungs-AEBE, no wheezing, rales Heart-S1, S2 normal, no murmurs Extremities-No edema Lab data as noted below. ASSESSMENT & PLAN: NEW ONSET ATRIAL FIBRILLATION WITH RVR : -In setting of fever spike. No prior hx of Atrial fibrillation, not on any medications at home -S/P EMERY guided synchronized cardio version today by Dr Zaldivar---> NSR now -S/P IV Cardizem drip since 09/02/16 -Metoprolol dose re adjusted to 25 mg PO BID post cardioversion today. -Anticoagulation: On IV Heparin drip. Discussed about option of coumadin vs xarelto. Okay with xarelto - will check insurance coverage. -Echo- Mild LVH, EF 55-60%, No valvular heart dz -Cardiology on board. FEVER SPIKE- Resolved Fever of 102 at home and 39 C in ER with no localized signs of infection. -Monitor Temp and W/F signs of infection- Afebrile so far, no leucocytosis -No indication of antibiotics. No further tests indicated. -Blood Cultures x 2 - negative HX OF PE 6-7 years ago was diagnosed with DVT/PE, probably provoked as was taken off coumadin after 3-6 months -Clinically no signs of PE -CT chest ordered- No PE, no acute abnormalities, Cholelithiasis History PSVT as per records PROBABLE AILEEN as per records -Scheduled for sleep study outpatient MORBID OBESITY BMI 40 DVT prophylaxis - IV heparin FULL CODE DISPOSITION Continue with tele monitoring Okay to discharge once cleared by cardiology Updated by bedside and answered all questions. Vital Signs: Date Time Temp Pulse Resp B/P (MAP) Pulse Ox O2 Delivery O2 Flow Rate FiO2 09/04/16 10:49 36.9 79 19 100/66 (77) 96 Room Air 09/04/16 10:43 80 15 115/91 (99) 98 Room Air 09/04/16 10:33 80 15 146/91 (109) 98 Room Air 09/04/16 10:23 80 15 148/74 (98) 98 Room Air 09/04/16 10:20 73 16 148/91 93 Nasal Cannula 4 09/04/16 10:15 150 16 99 Nasal Cannula 4 09/04/16 10:10 129 16 113/89 99 Nasal Cannula 4 09/04/16 10:05 135 16 112/87 95 Nasal Cannula 4 09/04/16 10:00 115 16 114/74 95 Nasal Cannula 4 09/04/16 08:59 37.2 103 18 110/66 (81) 95 Room Air 09/04/16 08:20 98 Room Air 09/04/16 04:00 Room Air 09/04/16 03:15 37.0 82 20 118/76 (90) 98 Room Air 09/03/16 23:59 Room Air 09/03/16 22:52 37.1 86 18 106/68 (81) 96 Room Air 09/03/16 21:23 127 112/74 09/03/16 20:00 Room Air 09/03/16 19:55 36.9 93 18 106/71 (83) 96 Room Air 09/03/16 16:00 98 Room Air 09/03/16 15:30 37.0 89 21 112/67 (82) 98 Room Air 09/03/16 12:30 135 09/03/16 12:00 Room Air 09/03/16 11:56 36.9 86 21 117/69 (85) 94 Room Air Lab Results: Results Past 24 Hours Test 09/03/16 12:03 09/03/16 18:39 09/03/16 20:25 09/04/16 02:22 Range/Units Activated Partial Thromboplast Time 39.3 44.1 43.6 21.0-31.0 SECONDS Partial Thromboplastin Ratio 1.5 1.7 1.7 Bedside Glucose 117 70-99 mg/dl Test 09/04/16 10:59 Range/Units Activated Partial Thromboplast Time 40.9 21.0-31.0 SECONDS Partial Thromboplastin Ratio 1.6
--- NOTE | 2016-09-04 12:25 | TEE ---
*NOTICE TO RECEIVING [employer] This information is strictly Confidential and protected under [place] law. [place] law prohibits you from making any further disclosure of this information unless further disclosure is expressly permitted by the written consent of the person to whom it pertains or is authorized by law. A general authorization for the release of medical or other information is not sufficient for this purpose. Hospital accepts no responsibility if the information is made available to any other person, INCLUDING THE PATIENT. Interpretation Summary * Name: SELWYN WEISS Study Date: 09/04/2016 09:41 AM * Patient Location: C.2T\S\S241\S\1 HR: 122 * : 1950 (M/d/yyyy) Gender: Male Height: 72 in * Age: 66 yrs Ethnicity: [place] Weight: 301 lb * Ordering Physician: Gabino Zaldivar * Referring Physician: Self, Referred * Performed By: Cain Lozano RCS * * Reason For Study: AFib * BSA: 2.5 m2 * No contraindications to synchronized electrical cardioversion. Procedure Details * The transesophageal portion of this study was personally supervised by the undersigned interpreting physician. * EMERY Probe #2 utilized for procedure. * The study was performed in Cardiac Catheterization Lab. * Time out was conducted by the physician, nurse, and icu tech with positive identification of patient and procedure. * Informed consent for Transesophageal Echocardiogram was obtained prior to the procedure. * An intravenous line was placed. A topical anesthetic agent was used for oropharangeal anesthesia. A bite block was inserted. * Sedation performed by the anesthesia department. * A multifrequency, multiplane transesopheageal echocardiographic endoscope was inserted and manipulated in the standard fashion to achieve multiplane views. * The transesophageal probe was passed without difficulty. * Limited views were obtained. * A 2D transesophageal echocardiogram with spectral and color flow Doppler was performed. Left Ventricle * The left ventricle is normal in size. * There is mild concentric left ventricular hypertrophy. * Ejection Fraction = 60-65%. * The left ventricular wall motion is normal. Atria * Borderline left atrial enlargement. * No left atrial mass or thrombus visualized. * No thrombus is detected in the left atrial appendage. * The interatrial septum is intact with no evidence for an atrial septal defect. Great Vessels * The aortic root is normal size. * Ascending aorta of normal dimension
--- NOTE | 2016-09-04 12:54 | PROGRESS NOTE ---
DATE: 09/04/2016 The patient was seen and examined post-synchronized electrical cardioversion, tolerated the procedure well. Denies any chest pains or discomfort. Heart rate is now in the 70s with sinus mechanism. OBJECTIVE: VITAL SIGNS: Blood pressure is 100/66. NECK: Thick. There is no distinct jugular venous distention. LUNGS: Reveal clear air ojeda. CARDIOVASCULAR: Regular. There is no S3 gallop. ABDOMEN: Soft and obese. EXTREMITIES: Without cyanosis or clubbing. There is 1-2+ chronic edema. IMPRESSION: A 66-year-old male presented with newly noted atrial fibrillation with rapid ventricular response, though not notable symptoms of tachypalpitations due to difficult controlling it. Rhythm has been referred and he underwent synchronized electrical cardioversion with EMERY guidance. EMERY guidance demonstrated no evidence of left atrial thrombus and mildly elevated left atrial size. No intracardiac structural abnormality. Procedure was performed and successfully converted the patient to sinus rhythm. RECOMMENDATIONS: I will follow up with cardiology as an outpatient 1 month's time. Continue Toprol-XL 25 mg per day. I would continue anticoagulation for at least 1 month post-cardioversion with target oriented anticoagulant as available. I strongly encourage patient to complete a sleep study and sleep evaluation as previously recommended, noted both in the hospital and during the patient's procedure. JOSE E
[2016-09-04] MEDS ORDERED: TPRSR25 PO (13:53)
--- NOTE | 2016-09-04 13:58 | Discharge Instructions ---
Discharge Instructions Date of Service Sep 04, 2016. Admission Reason for Admission: AFIB Discharge Discharge Diagnosis / Problem: 1. New onset Atrial fibrillation status post cardioversion Discharge Goals Goal(s): Therapeutic intervention, Prevent Disease Progression Activity Recommendations Activity Limitations: resume your previous activity . Instructions / Follow-Up Instructions / Follow-Up MEDICATION CHANGES: New medication: Toprol XL 25 mg PO BID New medication: Xarelto 20 mg daily with meals FOLLOW UP 1. Follow up with Dr Castro 09/12/16 at 11:05 AM 2. Follow up with Dr Zaldivar, cardiology in 1 month 3. Follow up with sleep center for sleep study Current Hospital Diet Patient's current hospital diet: AHA Diet (Heart Healthy) Discharge Diet Recommended Diet: AHA Diet (Heart Healthy) Procedures Procedures Performed: Trans esophageal echocardiogram (EMERY) guided cardioversion on 09/03/16 Pending Studies Studies pending at discharge: no Medical Emergencies . Who to Call and When: Medical Emergencies: If at any time you feel your situation is an emergency, please call 911 immediately. . Non-Emergent Contact Non-Emergency issues call your: Primary Care Provider, Threading Machine [employer]eder [employer] . . "Provider Documentation" section prepared by Taisha Grimes. . VTE Core Measure Inpt VTE Proph given/why not?: Other Anticoagulation (IV Heparin)
[2016-09-04] MEDS ORDERED: HEPARIN IV BOLUS 4,500 UNIT in SYRINGE 0 ML IV ONE (14:00)
--- NOTE | 2016-09-04 14:01 | Discharge Summary ---
Discharge Summary Date of Service Sep 04, 2016. Discharge Summary Admission Date: Sep 01, 2016 at 23:59 Discharge Date: Sep 04, 2016 Discharge Disposition: Home Principal Diagnosis: 1. Atrial fibrillation with RVR, new onset 2. S/P EMERY guided cardioversion Secondary Diagnoses/Problems: 1. Hx of PE 2. Probable AILEEN 3. Morbid obesity Procedures: EMERY guided electrical cardioversion Tele monitoring IV heparin drip IV cardizem drip CXR CT chest Venous duplex Consultations: Cardiology, Dr Gabino Zaldivar Pending Studies/Follow-Up: Instructions / Follow-Up Instructions / Follow-Up MEDICATION CHANGES: New medication: Toprol XL 25 mg PO BID New medication: Xarelto 20 mg daily with meals FOLLOW UP 1. Follow up with Dr Castro 09/12/16 at 11:05 AM 2. Follow up with Dr Zaldivar, cardiology in 1 month 3. Follow up with sleep center for sleep study Admission Information HPI (per Admitting provider): Recent confinement 2012 under orthopedic service for knee surgery. Yesterday patient woke up in the afternoon. He noted pleuritic left-sided chest discomfort nonradiating with shortness of breath. Ankles kind of swollen as per . No cough symptoms. No complaints of palpitations. Later on patient noted by to be febrile. At the emergency room, patient noted to be in rapid A. fib. Cardizem bolus followed by initiation of Cardizem drip. Chest discomfort a little better. Physical Exam (per Admitting): General Appearance: + pertinent finding (obese) Head: normocephalic, + pertinent finding (alopecia) Eyes: + pertinent finding (pink palpebral conjunctivae, dry buccal mucosa) Neck: + pertinent finding (short) Respiratory/Chest: + decreased breath sounds Cardiovascular: + tachycardia, + irregularly irregular Abdomen/GI: + pertinent finding (some distention) Extremities/Musculoskelatal: non-tender, + pertinent finding (minimal lower extremity swelling) Neurologic/Psych: alert Skin: normal color Hospital Course NEW ONSET ATRIAL FIBRILLATION WITH RVR : -In setting of fever spike. No prior hx of Atrial fibrillation, not on any medications at home -S/P EMERY guided synchronized cardio version today by Dr Zaldivar---> NSR now -S/P IV Cardizem drip since 09/02/16 -Metoprolol dose - re adjusted to Toprol XL 25 mg PO BID post cardioversion today. -Anticoagulation: On IV Heparin drip. Discussed about option of coumadin vs xarelto. Okay with xarelto - copay discussed by CM and he is okay with it. Discussed about the benefits/risk of bleeding, no antidote available--> understands and agreeable. Creatinine clearance - 94.7 -Echo- Mild LVH, EF 55-60%, No valvular heart dz -Cardiology on board. FEVER SPIKE- Resolved Fever of 102 at home and 39 C in ER with no localized signs of infection. -Monitor Temp and W/F signs of infection- Afebrile so far, no leucocytosis -No indication of antibiotics. No further tests indicated. -Blood Cultures x 2 - negative HX OF PE 6-7 years ago was diagnosed with DVT/PE, probably provoked as was taken off coumadin after 3-6 months -Clinically no signs of PE -CT chest ordered- No PE, no acute abnormalities, Cholelithiasis History PSVT as per records PROBABLE AILEEN as per records -Scheduled for sleep study outpatient MORBID OBESITY BMI 40 DVT prophylaxis - IV heparin FULL CODE DISPOSITION Eager to be discharged Cleared by cardiology for discharged. Okay to discharge home today Updated by bedside and answered all questions. Total time spent on discharge = 35 minutes This includes examination of the patient, discharge planning, medication reconciliation, and communication with other providers. Discharge Instructions Discharge Goals Goal(s): Therapeutic intervention, Prevent Disease Progression Activity Recommendations Activity Limitations: resume your previous activity . Instructions / Follow-Up Instructions / Follow-Up MEDICATION CHANGES: New medication: Toprol XL 25 mg PO BID New medication: Xarelto 20 mg daily with meals FOLLOW UP 1. Follow up with Dr Castro 09/12/16 at 11:05 AM 2. Follow up with Dr Zaldivar, cardiology in 1 month 3. Follow up with sleep center for sleep study Current Hospital Diet Patient's current hospital diet: AHA Diet (Heart Healthy) Discharge Diet Recommended Diet: AHA Diet (Heart Healthy) Procedures Procedures Performed: Trans esophageal echocardiogram (EMERY) guided cardioversion on 09/03/16 Pending Studies Studies pending at discharge: no Medical Emergencies . Who to Call and When: Medical Emergencies: If at any time you feel your situation is an emergency, please call 911 immediately. . Non-Emergent Contact Non-Emergency issues call your: Primary Care Provider, Client Advisor . . "Provider Documentation" section prepared by Taisha Grimes. . VTE Core Measure Inpt VTE Proph given/why not?: Other Anticoagulation (IV Heparin)
[2016-09-04] MEDS ORDERED: RIVA1TAB4 PO (14:46)
[2016-09-04] MEDS ORDERED: METOPROLOL SUCC 25MG EXT REL TAB PO SCH (21:00)
--- NOTE | 2016-09-05 00:53 | CARDIOVERSION ---
DATE OF OPERATION: 09/04/2016 PROCEDURE: EMERY guided synchronized electrical cardioversion. INDICATIONS: Atrial fibrillation with rapid ventricular response. DESCRIPTION OF PROCEDURE: After the procedure and risks were explained in detail to the patient, informed consent was obtained. The patient was sedated via anesthesia consultation with continuous heart rate, blood pressure and oxygen saturation monitored. Transesophageal echocardiogram was performed after EMERY probe got uneventfully through biteblock. No signs of contraindications for cardioversion were observed on EMREY, and the patient underwent synchronized electrical cardioversion using single 150-joule biphasic shock with successful return to sinus rhythm. Post-procedure, the patient aroused having tolerated well, EKG demonstrating sinus rhythm, borderline voltage criteria for left atrial enlargement, no ST-segment abnormalities. RECOMMENDATIONS: Continued anticoagulation for minimum 30 days and medical therapies. I attest to the content of the Intraoperative Record and any orders documented therein. Any exception s are noted below.
[2016-09-15] MEDS ORDERED: BTP80 PO (11:15)
[2016-10-11] MEDS ORDERED: SOTA120T6 PO (14:59)
== END 2016-09-04 15:50 | disposition home or self-care (01) | DRG 309 ==
LOC: C.EDB 21:43 → C.2T 23:59 → ENRESERV 09-02 00:11
PROVIDERS: ADMIT Internal Medicine; ATTEND Internal Medicine
PROC: 5A2204Z Restoration of Cardiac Rhythm, Single (ICD-10-PCS; principal; 2016-09-04 09:25)
DX: I48.91 Unspecified atrial fibrillation (principal); Z68.41 Body mass index [BMI] 40.0-44.9, adult; R50.9 Fever, unspecified; E66.01 Morbid (severe) obesity due to excess calories; G47.33 Obstructive sleep apnea (adult) (pediatric); Z86.711 Personal history of pulmonary embolism; Z86.718 Personal history of other venous thrombosis and embolism; Z82.49 Family history of ischemic heart disease and other diseases of the circulatory system

== ENCOUNTER 2016-09-12 12:34 | Inpatient (IN) | payer OTHER ==
[~2016-09-12] VITALS: Ht 182.9 cm; Wt 130.8 kg
[~2016-09-12 12:34] MED LIST changes: -DOXY100C2 PO; -PHEN-582 PO; +RIVA1TAB4 PO; +TPRSR25 PO
[2016-09-12] MEDS ORDERED: METOPROLOL TARTRATE 1 MG/ML VIAL IV STA (12:59)
--- NOTE | 2016-09-12 13:08 | EMERGENCY ROOM VISIT NOTE ---
History First contact with patient: 12:59 Chief Complaint: CARDIAC ASSESSMENT Stated Complaint: ATRIAL FIBRILLATION - SENT BY Nursing Triage Summary: triage note: Pt reports "i was at my dr office today and i am back in a fib and he sent me here." History of Present Illness The patient is a 66 year old male who presents to the Emergency Room with complaints of rapid heartbeat. The patient was sent here from Dr. Castro's office. The patient was there for a routine visit. He has noted his heart rate has been rapid over the past several days. The patient has a prior history of atrial fibrillation/flutter. He has required cardioversion in the past. The patient is currently taking Xarelto and metoprolol. He was encouraged to increase his dose of metoprolol but has not yet made any increase. The patient denies shortness of breath. He has felt tired. He has no chest pain. Review of Systems All systems have been listed, reviewed, and are negative other than those previously mentioned. Please see Additional Medical History Sheet. Past Medical/Surgical History Medical Problems: (1) Afib (2) Atrial fibrillation (3) Hx of blood clots Family History FH: heart attack Social History Smoking Status: Never Smoker Alcohol Use: none Drug Use: none Marital Status: Housing Status: lives with family Current/Historical Medications Scheduled Metoprolol Succinate (Metoprolol Succinate ER), 25 MG PO BID Rivaroxaban (Xarelto), 20 MG PO DAILY Physical Exam Vital Signs Date Time Temp Pulse Resp B/P (MAP) Pulse Ox O2 Delivery O2 Flow Rate FiO2 09/12/16 15:07 74 18 93 Room Air 09/12/16 15:02 74 20 96 Room Air 09/12/16 15:01 119/70 09/12/16 14:57 68 15 95 Room Air 09/12/16 14:52 56 14 97 Room Air 09/12/16 14:51 109/54 09/12/16 14:47 49 14 97 Room Air 09/12/16 14:45 115/64 09/12/16 14:42 76 31 96 Room Air 09/12/16 14:41 108 20 115/64 97 Room Air 09/12/16 14:33 105 18 113/77 96 Room Air 09/12/16 14:01 135 18 111/85 97 Room Air 09/12/16 13:56 138 18 112/79 97 Room Air 09/12/16 13:45 138 112/79 09/12/16 13:37 139 18 105/79 95 09/12/16 13:33 140 103/71 09/12/16 13:32 140 18 103/71 96 Room Air 09/12/16 13:19 141 20 92/64 97 Room Air 09/12/16 13:14 146 20 108/86 97 Room Air 09/12/16 13:14 97 Room Air 09/12/16 13:00 146 09/12/16 12:59 146 108/86 09/12/16 12:45 36.9 130 18 138/87 95 Room Air Physical Exam GENERAL: Patient is awake, alert. Patient is oriented x 3. Patient responds appropriately and follows commands. Patient is well-nourished and hydrated. Patient is nontoxic appearing. DERMATOLOGIC: No erythema, pallor, cyanosis or rash. No diaphoresis. HEENT: Normal head. Pupils equal, reactive to light and accommodation. Extraocular muscles are intact. PULMONARY: Clear to auscultation. No wheezes, no rales, no rhonchi. CARDIOVASCULAR: Regular rapid rate. No murmurs. No gallops. No rubs. GASTROENTEROLOGIC: No masses, no rebound, no hepatomegaly or splenomegaly. Nontender. No peritonitis. MUSCULOSKELETAL: No signs of trauma. No pedal or pretibial edema. No calf or thigh tenderness. NEUROLOGIC: No gross motor sensory function deficits. Medical Decision & Procedures Laboratory Results 09/12/16 13:05 09/12/16 13:05 Test 09/12/16 13:05 Red Blood Count 4.91 M/uL (4.7-6.1) Mean Corpuscular Volume 89.0 fL (80-100) Mean Corpuscular Hemoglobin 29.7 pg (25-34) Mean Corpuscular Hemoglobin Concent 33.4 g/dl (32-36) RDW Standard Deviation 42.6 fL (36.4-46.3) RDW Coefficient of Variation 13.1 % (11.5-14.5) Mean Platelet Volume 9.5 fL (7.4-10.4) Anion Gap 8.0 mmol/L (3-11) Est Creatinine Clear Calc Drug Dose 72.6 ml/min Estimated GFR () 60.7 Estimated GFR (Non- 52.4 BUN/Creatinine Ratio 17.1 (10-20) Calcium Level 9.5 mg/dl (8.5-10.1) Total Bilirubin 1.0 mg/dl (0.2-1) Aspartate Amino Transf (AST/SGOT) 27 U/L (15-37) Alanine Aminotransferase (ALT/SGPT) 51 U/L (12-78) Alkaline Phosphatase 66 U/L (45-117) Troponin I < 0.015 ng/ml (0-0.045) Total Protein 7.9 gm/dl (6.4-8.2) Albumin 3.5 gm/dl (3.4-5.0) Globulin 4.4 gm/dl (2.5-4.0) Albumin/Globulin Ratio 0.8 (0.9-2) Thyroid Stimulating Hormone (TSH) 2.920 uIu/ml (0.300-4.500) Medications Administered Medications (Trade) Dose Ordered Sig/Debi Route Start Time Stop Time Status Last Admin Dose Admin Metoprolol Tartrate (Lopressor Iv) 15 mg NOW STAT IV 09/12/16 12:59 09/12/16 13:02 DC 09/12/16 12:59 5 MG Metoprolol Tartrate (Lopressor Iv) 5 mg ONE ONCE IV. 09/12/16 13:32 09/12/16 13:33 DC 09/12/16 13:33 5 MG Metoprolol Tartrate (Lopressor Iv) 5 mg ONE ONCE IV 09/12/16 13:45 09/12/16 13:46 DC 09/12/16 13:45 5 MG Diltiazem HCl (Cardizem Inj) 20 mg TODAY@1430 ONCE IV 09/12/16 14:30 09/12/16 14:31 DC 09/12/16 14:30 20 MG Diltiazem HCl 125 mg/Dextrose 125 ml @ 0 mls/hr Q0M PRN IV 09/12/16 14:30 10/12/16 14:29 09/12/16 14:32 5 MLS/HR ED Course 1410 patient was reevaluated. The patient has received a total of 15 mg of IV metoprolol without significant change. Patient remains in 2-1 atrial flutter. I discussed care with Dr. Chavez. Medical Decision 66-year-old male here with rapid heart rate. The patient is a prior history of atrophic relation/flutter. The patient currently appears to be in flutter. Differential diagnosis includes atrial fibrillation flutter myocardial infarction, metabolic disorder, thyroid disorder. Multiple labs come imaging and EKG were obtained. Please see above. The patient was given IV metoprolol to slow his rhythm and hopefully convert him. The patient did not convert with metoprolol. I discussed care with Dr. Chavez who suggested the patient be given Cardizem. I ordered Cardizem bolus and drip. The patient did slow from a 2-1 block to a 3/4-1 block. The patient remains asymptomatic other than his rapid heartbeat. The patient may require electrical cardioversion. Medication Reconcilliation Current Medication List: was personally reviewed by me Blood Pressure Screening Patient's blood pressure: Normal blood pressure Consults Time Called: 1412 Consulting Physician: Scott Returned Call: 1412 Start Cardizem drip Additional Consults: Time Called: 1510 Consulted Physician: Cheryl NIEVES Returned Call: 1515 Additional Comments: will evaluate Impression Primary Impression: Atrial flutter Critical Care I have personally spent greater than 35 minutes of critical care time in the direct management of this patient. This includes bedside care, interpretation of diagnostic studies, and testing, discussion with consultants, patient, and family members, and other required patient management activities. This 35 minutes is in excess of all separately billable procedures. Departure Information Referrals Aldo Castro D.O. (PCP) Patient Instructions My [facility]
[2016-09-12 13:29] LABS: HEMATOCRIT 43.7 % (42-52); MEAN CORPUSCULAR HEMOGLOBIN 29.7 pg (25-34); MEAN CORPUSCULAR HGB CONC 33.4 g/dl (32-36); MEAN PLATELET VOLUME 9.5 fL (7.4-10.4); PLATELET COUNT 312 K/uL (130-400); RED BLOOD COUNT 4.91 M/uL (4.7-6.1); WHITE BLOOD COUNT 10.33 K/uL (4.8-10.8)
[2016-09-12] MEDS ORDERED: METOPROLOL TARTRATE 1 MG/ML VIAL IV. ONE (13:32)
--- NOTE | 2016-09-12 13:36 | DIAGNOSTIC IMAGING REPORT ---
CHEST ONE VIEW PORTABLE CLINICAL HISTORY: Atrial flutter COMPARISON STUDY: 09/01/2016 FINDINGS: There is a thoracic scoliosis. The heart is borderline enlarged. There is no failure. There is no focal pulmonary consolidation. No pleural effusions are visualized.[ IMPRESSION: No active disease in the chest. Electronically signed by: Jake Smith M.D. 09/12/2016 1:34 PM Dictated Date/Time: 09/12/2016 1:34 PM
[2016-09-12] MEDS ORDERED: METOPROLOL TARTRATE 1 MG/ML VIAL IV ONE (13:45)
[2016-09-12 13:47] LABS: ALT/SGPT 51 U/L (12-78); BLOOD UREA NITROGEN 24 mg/dl (7-18); BUN/CREATININE RATIO 17.1 (10-20); CALCIUM 9.5 mg/dl (8.5-10.1); CARBON DIOXIDE 23 mmol/L (21-32); CHLORIDE 108 mmol/L (98-107); GLUCOSE 119 mg/dl (70-99); POTASSIUM 4.4 mmol/L (3.5-5.1); SODIUM 139 mmol/L (136-145)
[2016-09-12 14:03] LABS: ALB/GLOB RATIO 0.8 (0.9-2); ALKALINE PHOSPHATASE 66 U/L (45-117); AST/SGOT 27 U/L (15-37)
[2016-09-12] MEDS ORDERED: DILTIAZEM BOLUS / DRIP IV STA ×2 (14:17→15:47)
[2016-09-12] MEDS ORDERED: DILTIAZEM HCL 5 MG/ML 5 ML VIAL IV ONE (14:30)
[2016-09-12] MEDS: DILTIAZEM HCL INJ 125 MG in DEXTROSE 5% 100ML IV PRN (14:32)
[2016-09-12] MEDS ORDERED: ONDANSETRON INJ 2 MG/ML 2 ML VIAL IV PRN (15:45)
[2016-09-12] MEDS ORDERED: ACETAMINOPHEN 325 MG TAB PO PRN (15:45)
--- NOTE | 2016-09-12 15:54 | Cardiology Consultation ---
Cardiology Consultation Date of Consultation: Sep 12, 2016 Requesting Physician: Dr. Jansen Attending Straight Line Press Setter: Dr. Chavez History of Present Illness Patient is a 66 year old male only discharged from [facility] 1 week ago after undergoing EMERY guided cardioversion presents from research instructor's office after being found to be in atrial flutter with 2:1 conduction. Pt originally presented on 09/02 with complaint of progressive dyspnea with exertion. Was found to be in afib with rvr, rate control was attempted and pt ultimately underwent EMERY guided cardioversion with Dr. Zaldivar on 09/04. Since discharge he states that he's been compliant with Xarelto and metoprolol and has not missed any doses. He did obtain a home hr monitor and he found his rates to be fluctuating any from 50 bpm up into the 170's. Only symptoms occurred when his hr was in the 170's and he experienced palpitations. Had regular f/u with Dr. Castro today where he was found to be tachycardic, an EKG was performed and was found to now be in atrial flutter. Currently without complaint. Again, states that he has not missed a single dose of Xarelto since discharge. Pt was given IV metoprolol in ED without any significant reduction of rate. I discussed the case with Dr. Jansen, cardizem bolus/gtt was recommended. HR now down to the 70's, now with atrial flutter and 4:1 conduction. Past Medical/Surgical History Problem List: Medical Problems: (1) Afib (2) Hx of DVT and PE Family History FH: heart attack Social History Smoking Status: Never Smoker Drug Use: none Marital Status: Housing Status: lives with family Occupation: employed Review Of Systems General: The patient denies weight change, night sweats, fever, chills. Head: The patient denies headache and prior head trauma. Cardiovascular: The patient denies chest pain or chest discomfort, dyspnea on exertion, palpitations, PND, orthopnea, edema, spontaneous shortness of breath, syncope and near syncope. Pulmonary: The patient denies cough, wheeze, pleurisy, hemoptysis, sputum, and excessive snoring. Gastrointestinal: The patient denies nausea, vomiting, diarrhea, constipation, bloating, hematemesis, hematochezia, and abdominal pain. Skin: The patient denies diaphoresis and rash. Musculoskeletal: The patient denies joint pain, joint swelling, myalgia, back pain, neck pain and prior injuries. Neurological: The patient denies prior stroke and seizures Allergies Coded Allergies: Naproxen (Verified Allergy, Intermediate, RASH/HIVES, 09/12/16) Iodinated Contrast Media (Verified Allergy, Unknown, UNKNOWN, 09/12/16) PER CT, PT STATES THAT ALLERGY WAS "MRI DYE" NOT CONTRAST; RADIOLOGIST AWARE Medications Reported Home Medications Medications Dose Route/Sig Max Daily Dose Days Date Category Xarelto (Rivaroxaban) 20 Mg Tab 20 Mg PO DAILY 30 09/04/16 Rx Metoprolol Succinate ER (Metoprolol Succinate) 25 Mg Tabcr 25 Mg PO BID 30 09/04/16 Rx Physical Exam Vital Signs (Last 8hrs): Last 8 Hrs Date Time Temp Pulse Resp B/P (MAP) Pulse Ox O2 Delivery O2 Flow Rate FiO2 09/12/16 15:21 125/82 09/12/16 15:12 74 23 97 09/12/16 15:07 74 18 93 Room Air 09/12/16 15:02 74 20 96 Room Air 09/12/16 15:01 119/70 09/12/16 14:57 68 15 95 Room Air 09/12/16 14:52 56 14 97 Room Air 09/12/16 14:51 109/54 09/12/16 14:47 49 14 97 Room Air 09/12/16 14:45 115/64 09/12/16 14:42 76 31 96 Room Air 09/12/16 14:41 108 20 115/64 97 Room Air 09/12/16 14:33 105 18 113/77 96 Room Air 09/12/16 14:01 135 18 111/85 97 Room Air 09/12/16 13:56 138 18 112/79 97 Room Air 09/12/16 13:45 138 112/79 09/12/16 13:37 139 18 105/79 95 09/12/16 13:33 140 103/71 09/12/16 13:32 140 18 103/71 96 Room Air 09/12/16 13:19 141 20 92/64 97 Room Air 09/12/16 13:14 146 20 108/86 97 Room Air 09/12/16 13:14 97 Room Air 09/12/16 13:00 146 09/12/16 12:59 146 108/86 09/12/16 12:45 36.9 130 18 138/87 95 Room Air General Appearance: Alert and Oriented x3. NAD. Head: Normocephalic Atraumatic. Eyes: PERRLA, EOMI, conjunctiva and sclera clear Neck: Supple. No carotid bruits noted. No JVD. No HJD. Respiratory: Breath sounds clear to auscultation bilaterally. No w/r/r. Cardiovascular: Reg rate and rhythm. S1 and S2 noted. No murmurs, rubs, gallops. PMI non displace. Abdomen: Normal bowel sounds, soft nontender. no abdominal bruits. Extremities: No edema, no clubbing or cyanosis. distal pulses 2/4 bilaterally. Neuro: No focal deficits. Psychiatric: Normal affect. Data Last 24 Hours Test 09/12/16 13:05 White Blood Count 10.33 K/uL Red Blood Count 4.91 M/uL Hemoglobin 14.6 g/dL Hematocrit 43.7 % Mean Corpuscular Volume 89.0 fL Mean Corpuscular Hemoglobin 29.7 pg Mean Corpuscular Hemoglobin Concent 33.4 g/dl RDW Standard Deviation 42.6 fL RDW Coefficient of Variation 13.1 % Platelet Count 312 K/uL Mean Platelet Volume 9.5 fL Sodium Level 139 mmol/L Potassium Level 4.4 mmol/L Chloride Level 108 mmol/L Carbon Dioxide Level 23 mmol/L Anion Gap 8.0 mmol/L Blood Urea Nitrogen 24 mg/dl Creatinine 1.40 mg/dl Est Creatinine Clear Calc Drug Dose 72.6 ml/min Estimated GFR () 60.7 Estimated GFR (Non- 52.4 BUN/Creatinine Ratio 17.1 Random Glucose 119 mg/dl Calcium Level 9.5 mg/dl Total Bilirubin 1.0 mg/dl Aspartate Amino Transf (AST/SGOT) 27 U/L Alanine Aminotransferase (ALT/SGPT) 51 U/L Alkaline Phosphatase 66 U/L Troponin I < 0.015 ng/ml Total Protein 7.9 gm/dl Albumin 3.5 gm/dl Globulin 4.4 gm/dl Albumin/Globulin Ratio 0.8 Thyroid Stimulating Hormone (TSH) 2.920 uIu/ml EKG: atrial flutter Telemetry reviewed: atrial flutter Assessment & Plan 1. new onset atrial flutter with 2:1 conduction new arrhythmia recently found to have PAF and underwent EMERY guided cardioversion given new atrial arrhythmia and the time course believe he will need antiarrhythmic therapy to remain in sinus discussed options with patient of cardioversion now vs. admission for antiarrhythmic initiation and then cardioversion discussed pros/cons along with risks and benefits of each approach pt would like to be placed on antiarrhythmic therapy to help increase chance of maintaining sinus rhythm will d/c metoprolol cont Xarelto uninterrupted, can give a dose now if patient hasn't already taken today will start Sotalol, first dose upon arrival to tele continuous tele monitor daily ekg's npo after midnight, cardioverion on 09/13 or 09/14
--- NOTE | 2016-09-12 16:25 | History and Physical ---
History & Physical Date & Time of Service: Sep 12, 2016 ~ 15:30 Chief Complaint: Fast Heart Rate Primary Care Physician: Aldo Castro D.O. History of Present Illness 66 year old male who was referred to the ER by his PCP for a fast heart rate. Patient was recently admitted to [facility] 09/01 - 09/04 for new onset atrial fibrillation. He underwent cardioversion on 09/04 with conversion to NSR. He was discharged on metoprolol and Xarelto. Patient reports he has continued to feel fatigued since being home. He has a home heart rate monitor and reports his heart rate has been ranging from the 50s to 170s. He reports feeling palpitations one time but denies any further chest pain or pressure. He reports mild lightheadedness and dizziness, no syncopal events. He denies abdominal pain , nausea, vomiting, and diarrhea. No fever or chills. He denies urinary symptoms. He had provided heart rate readings to his coal passer who increased his metoprolol however the patient has not started taking the higher dose yet. Patient was being seen today a his PCP for follow up and heart rate was found to be significantly elevated so he was referred to the ER for further evaluation. Upon arrival to the ER, patient was found to be in atrial flutter with rates in the 140s. He was given metoprolol 5mg IV x 3 without improvement in his rate. He was then bolused with Cardizem 20mg IV and started on a drip and heart rate has improved. Labs are unremarkable. Past Medical/Surgical History Medical Problems: (1) DVT (deep venous thrombosis) Permanent Comment: provoked, completed Coumadin therapy Status: Chronic (2) Dyslipidemia Status: Chronic (3) PAF (paroxysmal atrial fibrillation) Status: Chronic (4) Pulmonary embolism Permanent Comment: provoked, completed Coumadin therapy Status: Chronic Surgical Problems: (1) H/O cervical discectomy Status: Chronic (2) History of tonsillectomy and adenoidectomy Status: Chronic (3) Status post total knee replacement, left Status: Chronic (4) Status post total knee replacement, right Status: Chronic Family History FH: heart attack FATHER (fatal [place] at age 58) Social History Smoking Status: Former Smoker Alcohol Use: none Marital Status: Immunizations History of Influenza Vaccine: Yes Influenza Vaccine Date: Dec 14, 2015 History of Tetanus Vaccine?: Yes Tetanus Immunization Date: June 16, 2008 Multi-Drug Resistant Organisms History of MDRO: No Allergies Coded Allergies: Naproxen (Verified Allergy, Intermediate, RASH/HIVES, 09/12/16) Iodinated Contrast Media (Verified Allergy, Unknown, UNKNOWN, 09/12/16) PER CT, PT STATES THAT ALLERGY WAS "MRI DYE" NOT CONTRAST; RADIOLOGIST AWARE Home Medications Scheduled Metoprolol Succinate (Metoprolol Succinate ER), 25 MG PO BID Rivaroxaban (Xarelto), 20 MG PO DAILY Review of Systems ROS per HPI, all other systems reviewed and negative Physical Exam Vital Signs Date Time Temp Pulse Resp B/P (MAP) Pulse Ox O2 Delivery O2 Flow Rate FiO2 09/12/16 15:49 75 20 103/71 98 Room Air 09/12/16 15:21 125/82 09/12/16 15:12 74 23 97 09/12/16 15:07 74 18 93 Room Air 09/12/16 15:02 74 20 96 Room Air 09/12/16 15:01 119/70 09/12/16 14:57 68 15 95 Room Air 09/12/16 14:52 56 14 97 Room Air 09/12/16 14:51 109/54 09/12/16 14:47 49 14 97 Room Air 09/12/16 14:45 115/64 09/12/16 14:42 76 31 96 Room Air 09/12/16 14:41 108 20 115/64 97 Room Air 09/12/16 14:33 105 18 113/77 96 Room Air 09/12/16 14:01 135 18 111/85 97 Room Air 09/12/16 13:56 138 18 112/79 97 Room Air 09/12/16 13:45 138 112/79 09/12/16 13:37 139 18 105/79 95 09/12/16 13:33 140 103/71 09/12/16 13:32 140 18 103/71 96 Room Air 09/12/16 13:19 141 20 92/64 97 Room Air 09/12/16 13:14 146 20 108/86 97 Room Air 09/12/16 13:14 97 Room Air 09/12/16 13:00 146 09/12/16 12:59 146 108/86 09/12/16 12:45 36.9 130 18 138/87 95 Room Air General Appearance: no apparent distress Head: normocephalic Eyes: normal inspection ENT: hearing grossly normal Neck: supple, thyroid normal Respiratory/Chest: lungs clear, normal breath sounds, no respiratory distress Cardiovascular: no edema, normal peripheral pulses, + irregularly irregular ( rate controlled) Abdomen/GI: normal bowel sounds, non tender, soft Extremities/Musculoskelatal: normal inspection, no calf tenderness Neurologic/Psych: no motor/sensory deficits, alert, normal mood/affect, oriented x 3 Skin: normal color, warm/dry Diagnostics Laboratory Results Results Past 24 Hours Test 09/12/16 13:05 09/12/16 15:42 Range/Units White Blood Count 10.33 4.8-10.8 K/uL Red Blood Count 4.91 4.7-6.1 M/uL Hemoglobin 14.6 14.0-18.0 g/dL Hematocrit 43.7 42-52 % Mean Corpuscular Volume 89.0 80-100 fL Mean Corpuscular Hemoglobin 29.7 25-34 pg Mean Corpuscular Hemoglobin Concent 33.4 32-36 g/dl RDW Standard Deviation 42.6 36.4-46.3 fL RDW Coefficient of Variation 13.1 11.5-14.5 % Platelet Count 312 130-400 K/uL Mean Platelet Volume 9.5 7.4-10.4 fL Sodium Level 139 136-145 mmol/L Potassium Level 4.4 3.5-5.1 mmol/L Chloride Level 108 98-107 mmol/L Carbon Dioxide Level 23 21-32 mmol/L Anion Gap 8.0 3-11 mmol/L Blood Urea Nitrogen 24 7-18 mg/dl Creatinine 1.40 0.60-1.40 mg/dl Est Creatinine Clear Calc Drug Dose 72.6 ml/min Estimated GFR () 60.7 Estimated GFR (Non- 52.4 BUN/Creatinine Ratio 17.1 10-20 Random Glucose 119 70-99 mg/dl Calcium Level 9.5 8.5-10.1 mg/dl Total Bilirubin 1.0 0.2-1 mg/dl Aspartate Amino Transf (AST/SGOT) 27 15-37 U/L Alanine Aminotransferase (ALT/SGPT) 51 12-78 U/L Alkaline Phosphatase 66 45-117 U/L Troponin I < 0.015 0-0.045 ng/ml Total Protein 7.9 6.4-8.2 gm/dl Albumin 3.5 3.4-5.0 gm/dl Globulin 4.4 2.5-4.0 gm/dl Albumin/Globulin Ratio 0.8 0.9-2 Thyroid Stimulating Hormone (TSH) 2.920 0.300-4.500 uIu/ml Diagnostic Radiology CXR IMPRESSION: No active disease in the chest. Impression Assessment and Plan NEW ONSET ATRIAL FLUTTER - admit to tele - patient recently admitted to [facility] 09/01 - 09/04 for new onset atrial fibrillation with RVR - s/p cardioversion on 09/04 with conversion to NSR - was discharged on metoprolol and Xarelto - since being home patient reports HRs have been ranging from the 50s-170s - mostly asymptomatic; was at his PCP office today for follow up and found to have significantly high heart rate so was referred to the ER - was found to be in atrial flutter with rates in the 140s - was given metoprolol 5mg IV x 3 without improvement and was then given Cardizem 20mg IV bolus followed by drip with improvement in rates - case discussed with Dr. Chavez - will initiate Sotalol therapy; continue Cardizem gtt and wean to off; d/c metoprolol - possible cardioversion 09/14 - continue Xarelto - cycle cardiac enzymes HX OF DVT / PE - remote history of and provoked - previously completed Coumadin therapy DVT PROPHYLAXIS - on Xarelto DISPO - In my clinical judgment this beneficiary meets acute admission criteria, established by [facility], that includes being hospitalized through two midnights. Attending Addendum: Agree with the above H&P, please see above for more detail. Patient was asymptomatic of being in a flutter and having high heart rates; he was at his follow up appt when it was discovered again. He was recently cardioverted (1 week ago) and reports that he was taking his medications at home and had no symptoms that he can recall. No complaints of CP, SOB, dizziness , or palpitations. Cardiac: irregularly irregular, S1 and S2 auscultated, no JVD, no carotid bruits Respiratory: CTA B/L GI: soft, NT, ND, + bowel sounds ATRIAL FLUTTER: -s/p recent cardioversion and admission for atrial fibrillation -was taking xarelto and metoprolol upon discharge and had a hospital follow up appt today with his PCP where he was again found to have high rates and irregular rhythm -Cardiology consulted, planning to start sotalol with possible cardioversion if not successful -was on a cardizem drip in the ER which has since been weaned off -tele monitoring -continue xarelto Level of Care Telemetry VTE Prophylaxis VTE Risk Assessment Done? Y/N: Yes Risk Level: Moderate Given or contraindicated: Other Anticoagulation (Xarelto )
[2016-09-12 17:38] VITALS: BP 120/68; PULSE 73; TEMP 36.7; O2SAT 98; Ht 182.9 cm; Wt 130.8 kg
[2016-09-12] MEDS: SOTALOL HCL 80 MG TAB PO SCH (18:03)
[2016-09-12] MEDS ORDERED: POLYETHYLENE (MIRALAX) 17 GM PACK PO PRN (18:30)
[2016-09-12 19:41] VITALS: BP 108/71; PULSE 53; TEMP 37; O2SAT 95
[2016-09-13] VITALS (7 sets, daily range): BP systolic 99–125; BP diastolic 59–78; PULSE 48–105; TEMP 36.5–36.9; O2SAT 96–99
[2016-09-13 07:29] LABS: HEMATOCRIT 41.2 % (42-52); MEAN CELL VOLUME 89.8 fL (80-100); MEAN CORPUSCULAR HEMOGLOBIN 30.1 pg (25-34); MEAN CORPUSCULAR HGB CONC 33.5 g/dl (32-36); MEAN PLATELET VOLUME 9.3 fL (7.4-10.4); PLATELET COUNT 259 K/uL (130-400); RED BLOOD COUNT 4.59 M/uL (4.7-6.1); WHITE BLOOD COUNT 7.33 K/uL (4.8-10.8)
[2016-09-13] MEDS: SOTALOL HCL 80 MG TAB PO SCH ×2 (07:43→20:21)
[2016-09-13] MEDS: RIVAROXABAN 20 MG TAB PO SCH (07:44)
[2016-09-13 08:04] LABS: BLOOD UREA NITROGEN 24 mg/dl (7-18); BUN/CREATININE RATIO 18.2 (10-20); CALCIUM 8.7 mg/dl (8.5-10.1); CARBON DIOXIDE 28 mmol/L (21-32); CHLORIDE 107 mmol/L (98-107); GLUCOSE 88 mg/dl (70-99); SODIUM 139 mmol/L (136-145)
[2016-09-13 08:38] LABS: POTASSIUM 4.2 mmol/L (3.5-5.1)
--- NOTE | 2016-09-13 12:13 | Cardiology Follow-Up ---
Subjective Subjective Date of Service: Sep 13, 2016. Pt evaluation today including: conversation w/ patient, physical exam, chart review, lab review, review of studies, review of inpatient medication list Additional Details: Pt seen and examined, states that he feels fine. No symptoms at all. Denies cp, sob, palpitations, lightheadedness or dizziness. Tele reviewed: a flutter overnight now with afib with rvr Problem List Medical Problems: (1) Acute chest pain Status: Acute (2) Atrial fibrillation with RVR Status: Acute (3) Febrile illness Status: Acute (4) Pneumonia Status: Acute Review of Systems Respiratory: + cough, No see HPI, No sputum, No wheezing, No shortness of breath, No dyspnea on exertion, No dyspnea at rest, No hemoptysis, No problem reported Cardiac: No see HPI, No chest pain, No orthopnea, No PND, No edema, No claudication, No palpitations, No problem reported Objective Vital Signs Last Vital Signs Documentation Date Time Temp Pulse Resp B/P (MAP) Pulse Ox O2 Delivery O2 Flow Rate FiO2 09/13/16 11:17 Room Air 09/13/16 11:15 36.6 57 18 101/65 (77 97 Physical Exam: General Appearance: WD/WN, no apparent distress Eyes: bilateral eyes normal inspection, bilateral eyes PERRL, bilateral eyes EOMI ENT: normal ENT inspection, hearing grossly normal, pharynx normal Neck: supple, no adenopathy, thyroid normal, no JVD, no carotid bruits, trachea midline Respiratory/Chest: chest non-tender, lungs clear, normal breath sounds, no respiratory distress, no accessory muscle use Cardiovascular: no gallop, no JVD, no murmur, + tachycardia, + irregularly irregular Abdomen: normal bowel sounds, non tender, soft, no organomegaly, no pulsatile mass Extremities: non-tender, normal inspection, no pedal edema, no calf tenderness Neurologic/Psychiatric: oracle consultant II-XII nml as tested, no motor/sensory deficits, alert, normal mood/affect, oriented x 3 Skin: normal color, warm/dry, no rash Lymphatic: no adenopathy Assessment and Plan 1. new onset atrial flutter with 2:1 conduction new arrhythmia recently found to have PAF and underwent EMERY guided cardioversion sotalol started and tolerating well no ventricular arrhythmias on monitor Qt stable will give another day of Sotalol and plan on cardioversion in AM of 09/14 cont Xarelto npo after midnight 2. atrial fibrillation recurrent further strengthens need for antiarrhythmic therapy cardizem gtt restarted for rate control, will continue cont sotalol cont Xarelto
--- NOTE | 2016-09-13 13:01 | Progress Note ---
Subjective Date of Service: Sep 13, 2016. Subjective Pt evaluation today including: conversation w/ patient, physical exam, lab review, review of studies, review of inpatient medication list Saw/examined the patient in room 244 He states he feels fine, no palpitations, no chest pain No shortness of breath Good PO intake, no abdominal pain Problem List Medical Problems: (1) Acute chest pain Status: Acute (2) Atrial fibrillation with RVR Status: Acute (3) Febrile illness Status: Acute (4) Pneumonia Status: Acute Review of Systems Constitutional: No fever, No chills Respiratory: No cough, No sputum, No shortness of breath Cardiac: No chest pain, No edema, No palpitations Abdomen: No pain, No nausea, No vomiting, No diarrhea, No GI bleeding Heme: No abnormal bleeding/bruising Medications Current Inpatient Medications Medications (Trade) Dose Ordered Sig/Debi Route Start Time Stop Time Status Last Admin Dose Admin Diltiazem HCl 125 mg/Dextrose 125 ml @ 0 mls/hr Q0M PRN IV 09/12/16 14:30 10/12/16 14:29 09/12/16 14:32 5 MLS/HR Acetaminophen (Tylenol Tab) 650 mg Q4H PRN PO 09/12/16 15:45 10/12/16 15:44 Ondansetron HCl (Zofran Inj) 4 mg Q6H PRN IV 09/12/16 15:45 10/12/16 15:44 Sotalol HCl (Betapace Tab) 80 mg BID PO 09/12/16 18:00 10/12/16 17:59 09/13/16 07:43 80 MG Rivaroxaban (Xarelto Tab) 20 mg DAILY PO 09/13/16 09:00 10/13/16 08:59 09/13/16 07:44 20 MG Polyethylene (Miralax Powder Packet) 17 gm DAILY PRN PO 09/12/16 18:30 10/12/16 18:29 Objective Vital Signs Date Time Temp Pulse Resp B/P (MAP) Pulse Ox O2 Delivery O2 Flow Rate FiO2 09/13/16 11:17 Room Air 09/13/16 11:15 36.6 57 18 101/65 (77) 97 Room Air 09/13/16 08:00 Room Air 09/13/16 07:29 36.9 72 18 99/65 (76) 96 09/13/16 04:00 Room Air 09/13/16 04:00 36.6 68 18 114/67 (83) 96 Room Air 09/13/16 00:00 36.9 74 18 100/59 (73) 99 Room Air 09/12/16 23:59 Room Air 09/12/16 20:00 Room Air 09/12/16 19:41 37.0 53 20 108/71 (83) 95 Room Air 09/12/16 17:38 36.7 73 19 120/68 98 Room Air 09/12/16 16:19 119/70 09/12/16 16:12 72 18 96 Room Air 09/12/16 16:07 51 20 96 Room Air 09/12/16 16:02 75 17 96 Room Air 09/12/16 15:57 69 16 95 Room Air 09/12/16 15:52 76 15 97 Room Air 09/12/16 15:51 106/67 09/12/16 15:49 75 20 103/71 98 Room Air 09/12/16 15:47 76 15 98 Room Air 09/12/16 15:44 103/71 09/12/16 15:42 74 12 95 Room Air 09/12/16 15:41 109/74 09/12/16 15:37 52 20 100 Room Air 09/12/16 15:32 74 14 98 Room Air 09/12/16 15:31 112/64 09/12/16 15:27 74 13 95 Room Air 09/12/16 15:22 76 18 96 Room Air 09/12/16 15:21 125/82 09/12/16 15:12 74 23 97 09/12/16 15:07 74 18 93 Room Air 09/12/16 15:02 74 20 96 Room Air 09/12/16 15:01 119/70 09/12/16 14:57 68 15 95 Room Air 09/12/16 14:52 56 14 97 Room Air 09/12/16 14:51 109/54 09/12/16 14:47 49 14 97 Room Air 09/12/16 14:45 115/64 09/12/16 14:42 76 31 96 Room Air 09/12/16 14:41 108 20 115/64 97 Room Air 09/12/16 14:33 105 18 113/77 96 Room Air 09/12/16 14:01 135 18 111/85 97 Room Air 09/12/16 13:56 138 18 112/79 97 Room Air 09/12/16 13:45 138 112/79 09/12/16 13:37 139 18 105/79 95 09/12/16 13:33 140 103/71 09/12/16 13:32 140 18 103/71 96 Room Air 09/12/16 13:19 141 20 92/64 97 Room Air 09/12/16 13:14 146 20 108/86 97 Room Air 09/12/16 13:14 97 Room Air 09/12/16 13:00 146 09/12/16 12:59 146 108/86 Physical Exam General Appearance: no apparent distress Respiratory/Chest: chest non-tender, lungs clear, normal breath sounds, no respiratory distress, no accessory muscle use Cardiovascular: no edema, no murmur, + irregularly irregular Abdomen: normal bowel sounds, non tender, soft Extremities: non-tender, normal inspection, no pedal edema Neurologic/Psychiatric: no motor/sensory deficits, alert, normal mood/affect Laboratory Results Last 24 Hours Test 09/12/16 13:05 09/12/16 19:00 09/12/16 19:02 09/13/16 01:03 White Blood Count 10.33 K/uL Red Blood Count 4.91 M/uL Hemoglobin 14.6 g/dL Hematocrit 43.7 % Mean Corpuscular Volume 89.0 fL Mean Corpuscular Hemoglobin 29.7 pg Mean Corpuscular Hemoglobin Concent 33.4 g/dl RDW Standard Deviation 42.6 fL RDW Coefficient of Variation 13.1 % Platelet Count 312 K/uL Mean Platelet Volume 9.5 fL Sodium Level 139 mmol/L Potassium Level 4.4 mmol/L Chloride Level 108 mmol/L Carbon Dioxide Level 23 mmol/L Anion Gap 8.0 mmol/L Blood Urea Nitrogen 24 mg/dl Creatinine 1.40 mg/dl Est Creatinine Clear Calc Drug Dose 72.6 ml/min Estimated GFR () 60.7 Estimated GFR (Non- 52.4 BUN/Creatinine Ratio 17.1 Random Glucose 119 mg/dl Calcium Level 9.5 mg/dl Magnesium Level 2.1 mg/dl Total Bilirubin 1.0 mg/dl Aspartate Amino Transf (AST/SGOT) 27 U/L Alanine Aminotransferase (ALT/SGPT) 51 U/L Alkaline Phosphatase 66 U/L Troponin I < 0.015 ng/ml < 0.015 ng/ml < 0.015 ng/ml Total Protein 7.9 gm/dl Albumin 3.5 gm/dl Globulin 4.4 gm/dl Albumin/Globulin Ratio 0.8 Thyroid Stimulating Hormone (TSH) 2.920 uIu/ml Creatine Kinase MB Ratio Creatine Kinase MB 0.5 ng/ml 0.8 ng/ml Test 09/13/16 07:03 09/13/16 08:11 White Blood Count 7.33 K/uL Red Blood Count 4.59 M/uL Hemoglobin 13.8 g/dL Hematocrit 41.2 % Mean Corpuscular Volume 89.8 fL Mean Corpuscular Hemoglobin 30.1 pg Mean Corpuscular Hemoglobin Concent 33.5 g/dl RDW Standard Deviation 43.3 fL RDW Coefficient of Variation 13.3 % Platelet Count 259 K/uL Mean Platelet Volume 9.3 fL Sodium Level 139 mmol/L Potassium Level mmol/L 4.2 mmol/L Chloride Level 107 mmol/L Carbon Dioxide Level 28 mmol/L Anion Gap 4.0 mmol/L Blood Urea Nitrogen 24 mg/dl Creatinine 1.30 mg/dl Est Creatinine Clear Calc Drug Dose 79.2 ml/min Estimated GFR () 66.4 Estimated GFR (Non- 57.3 BUN/Creatinine Ratio 18.2 Random Glucose 88 mg/dl Calcium Level 8.7 mg/dl Chemistry Specimen Hemolysis Assessment and Plan This is a 66 year old male with a PMH of HLD, recent admission to [facility] due to atrial fibrillation s/p cardioversion on 09/04 presented due to recurrence of A. Fib Atrial Fibrillation with RVR rate improved with Cardizem drip appreciate caridology input started on sotalol load EKG with no significant QTc prolongation daily EKG NPO after midnight possible cardioversion in AM on 09/14 DVT ppx Xarelto FULL CODE
[2016-09-13] MEDS: DILTIAZEM HCL INJ 125 MG in DEXTROSE 5% 100ML IV PRN (14:13)
[2016-09-14] VITALS (7 sets, daily range): BP systolic 88–128; BP diastolic 47–83; PULSE 58–72; TEMP 36.6–37.2; O2SAT 97–99
[2016-09-14] MEDS ORDERED: SODIUM CHLORIDE 0.9% 250ML 250 ML IV ONE (01:15)
[2016-09-14 01:30] LABS: BASO % 0.2 %; BASO ABS # 0.02 K/uL (0-0.2); COMPLETE YES; EOS % 3.3 %; HEMATOCRIT 40.3 % (42-52); IG% 0.2 %; LYMPH % 42.9 %; LYMPH ABS # 3.56 K/uL (1.2-3.4); MEAN CELL VOLUME 89.8 fL (80-100); MEAN CORPUSCULAR HEMOGLOBIN 30.5 pg (25-34); MEAN PLATELET VOLUME 9.4 fL (7.4-10.4); MONO % 6.7 %; NEUT % 46.7 %; PLATELET COUNT 258 K/uL (130-400); RED BLOOD COUNT 4.49 M/uL (4.7-6.1)
[2016-09-14 01:48] LABS: BUN/CREATININE RATIO 16.5 (10-20); CALCIUM 8.5 mg/dl (8.5-10.1); CREATININE 1.4 mg/dl (0.60-1.40); MAGNESIUM 2.2 mg/dl (1.8-2.4); POTASSIUM 4.3 mmol/L (3.5-5.1)
[2016-09-14] MEDS: SOTALOL HCL 80 MG TAB PO SCH ×2 (07:42→20:34)
[2016-09-14] MEDS: RIVAROXABAN 20 MG TAB PO SCH (07:42)
--- NOTE | 2016-09-14 11:03 | Cardiology Follow-Up ---
Subjective Subjective Date of Service: Sep 14, 2016. Pt evaluation today including: conversation w/ patient, physical exam, chart review, lab review, review of studies, review of inpatient medication list Additional Details: Pt seen and examined, states that he continues to feel fine. Denies cp, sob, palpitations, lightheadedness or dizziness. Tele reviewed: spontaneously converted to sinus rhythm early this AM. No significant arrhythmias. Problem List Medical Problems: (1) Acute chest pain Status: Acute (2) Atrial fibrillation with RVR Status: Acute (3) Febrile illness Status: Acute (4) Pneumonia Status: Acute Review of Systems Constitutional: No fever, No chills Respiratory: No cough, No sputum, No shortness of breath Cardiac: No chest pain, No edema, No palpitations Abdomen: No pain, No nausea, No vomiting, No diarrhea, No GI bleeding Heme: No abnormal bleeding/bruising Objective Vital Signs Last Vital Signs Documentation Date Time Temp Pulse Resp B/P (MAP) Pulse Ox O2 Delivery O2 Flow Rate FiO2 09/14/16 08:00 Room Air 09/14/16 07:49 36.6 72 18 117/68 (84) 97 Physical Exam: General Appearance: no apparent distress Eyes: bilateral eyes normal inspection, bilateral eyes PERRL, bilateral eyes EOMI ENT: normal ENT inspection, hearing grossly normal, pharynx normal Neck: supple, no adenopathy, thyroid normal, no JVD, no carotid bruits, trachea midline Respiratory/Chest: chest non-tender, lungs clear, normal breath sounds, no respiratory distress, no accessory muscle use Cardiovascular: no edema, no murmur, + irregularly irregular Abdomen: normal bowel sounds, non tender, soft Extremities: non-tender, normal inspection, no pedal edema Neurologic/Psychiatric: no motor/sensory deficits, alert, normal mood/affect Skin: normal color, warm/dry, no rash Lymphatic: no adenopathy Assessment and Plan 1. new onset atrial flutter with 2:1 conduction new arrhythmia recently found to have PAF and underwent EMERY guided cardioversion sotalol started and tolerating well spontaneously converted to sinus early this AM QT stable no arrhythmias. cont Xarelto will monitor till tomorrow morning after patient receives 6th dose of sotalol 2. atrial fibrillation recurrent cardizem gtt stopped cont sotalol cont Xarelto
--- NOTE | 2016-09-14 17:52 | Progress Note ---
Internal Med Progress Note Date of Service: Sep 14, 2016. Provider Documentation: SUBJECTIVE: converted to sinus rhythm spontaneously this AM denies of any chest pain or SOB OBJECTIVE: Vital Signs-as noted below Exam: General-no sign of distress Eyes-sclera non icteric , PERRLA/EOMI ENT-NAd Neck-no JVD Lungs-CTA Heart-regular S1/S2 Abdomen-soft ,non tender Extremities-no rash or deformity Neuro-no focal deficit ,AAO X 3 Lab data as noted below. ASSESSMENT & PLAN: This is a 66 year old male with a PMH of HLD, recent admission to [facility] due to atrial fibrillation s/p cardioversion on 09/04 presented due to recurrence of A. Fib Atrial Fibrillation rate improved with Cardizem drip-D/velma now appreciate cardiology input started on sotalol load on Xarelto EKG with no significant QTc prolongation converted spontaneously to sinus rhythm today cont on Sotalol pt will need continued tele monitoring for Sotalol dosing AFLUTTER : recently found to have PAF and underwent EMERY guided cardioversion spontaneously converted to sinus early this AM cont Sotalol monitor QTc DVT ppx Xarelto FULL CODE DISPOSITION discharge home when medically stable medicine follow up with Dr Stark Vital Signs: Date Time Temp Pulse Resp B/P (MAP) Pulse Ox O2 Delivery O2 Flow Rate FiO2 09/14/16 16:05 Room Air 09/14/16 15:26 36.6 69 22 91/56 (68) 99 Room Air 09/14/16 11:36 Room Air 09/14/16 11:15 36.8 67 18 116/73 (87) 98 Room Air 09/14/16 08:00 Room Air 09/14/16 07:49 36.6 72 18 117/68 (84) 97 Room Air 09/14/16 04:00 Room Air 09/14/16 03:55 36.6 67 18 92/47 (62) 98 Room Air 09/14/16 01:01 58 18 88/52 (64) 99 Room Air 09/14/16 00:01 Room Air 09/13/16 23:40 36.5 69 18 101/67 (78) 99 Room Air 09/13/16 20:23 36.6 73 18 125/78 (94) 97 Room Air 09/13/16 20:00 Room Air Lab Results: Results Past 24 Hours Test 09/14/16 01:18 Range/Units White Blood Count 8.30 4.8-10.8 K/uL Red Blood Count 4.49 4.7-6.1 M/uL Hemoglobin 13.7 14.0-18.0 g/dL Hematocrit 40.3 42-52 % Mean Corpuscular Volume 89.8 80-100 fL Mean Corpuscular Hemoglobin 30.5 25-34 pg Mean Corpuscular Hemoglobin Concent 34.0 32-36 g/dl Platelet Count 258 130-400 K/uL Mean Platelet Volume 9.4 7.4-10.4 fL Neutrophils (%) (Auto) 46.7 % Lymphocytes (%) (Auto) 42.9 % Monocytes (%) (Auto) 6.7 % Eosinophils (%) (Auto) 3.3 % Basophils (%) (Auto) 0.2 % Neutrophils # (Auto) 3.87 1.4-6.5 K/uL Lymphocytes # (Auto) 3.56 1.2-3.4 K/uL Monocytes # (Auto) 0.56 0.11-0.59 K/uL Eosinophils # (Auto) 0.27 0-0.5 K/uL Basophils # (Auto) 0.02 0-0.2 K/uL RDW Standard Deviation 43.1 36.4-46.3 fL RDW Coefficient of Variation 13.1 11.5-14.5 % Immature Granulocyte % (Auto) 0.2 % Immature Granulocyte # (Auto) 0.02 0.00-0.02 K/uL Sodium Level 141 136-145 mmol/L Potassium Level 4.3 3.5-5.1 mmol/L Chloride Level 108 98-107 mmol/L Carbon Dioxide Level 29 21-32 mmol/L Anion Gap 4.0 3-11 mmol/L Blood Urea Nitrogen 23 7-18 mg/dl Creatinine 1.40 0.60-1.40 mg/dl Est Creatinine Clear Calc Drug Dose 73.5 ml/min Estimated GFR () 60.7 Estimated GFR (Non- 52.4 BUN/Creatinine Ratio 16.5 10-20 Random Glucose 87 70-99 mg/dl Lactic Acid Level 0.8 0.4-2.0 mmol/L Calcium Level 8.5 8.5-10.1 mg/dl Magnesium Level 2.2 1.8-2.4 mg/dl
[2016-09-15 03:55] VITALS: BP_SYST 96; BP_SYST 98; BP_DIAS 62; PULSE 57; TEMP 36.5; O2SAT 98
[2016-09-15 07:57] VITALS: BP 107/70; PULSE 59; TEMP 36.8; O2SAT 96
[2016-09-15 08:09] LABS: CREATININE 1.2 mg/dl (0.60-1.40)
[2016-09-15] MEDS: RIVAROXABAN 20 MG TAB PO SCH (08:56)
[2016-09-15] MEDS: SOTALOL HCL 80 MG TAB PO SCH (08:56)
[2016-09-15] MEDS ORDERED: BTP80 PO (11:15)
[2016-09-15 11:16] VITALS: BP 117/61; PULSE 64; TEMP 36.6; O2SAT 98
--- NOTE | 2016-09-15 11:16 | Discharge Instructions ---
Discharge Instructions Date of Service Sep 15, 2016. Admission Reason for Admission: Atrial Flutter Discharge Discharge Diagnosis / Problem: AFLUTTER /AFIB Discharge Goals Goal(s): Decrease discomfort, Improve disease control, Diagnostic testing Activity Recommendations Activity Limitations: resume your previous activity Shower/Bathe: no limitations . Instructions / Follow-Up Instructions / Follow-Up HOSPITAL FOLLOW UP : 09/21/2016 9:00 AM Aldo Castro DO General Internal Medicine [facility] PLEASE HAVE EKG DONE AT FARRAR 'S OFFICE ON 09/21/[address] FOLLOW UP WITH DR FRED CORDOVA IN 1-2 WEEKS OFFICE WILL CALL WITH APPOINTMENT Current Hospital Diet Patient's current hospital diet: AHA Diet (Heart Healthy) Discharge Diet Recommended Diet: AHA Diet (Heart Healthy) Pending Studies Studies pending at discharge: no Medical Emergencies . Who to Call and When: Medical Emergencies: If at any time you feel your situation is an emergency, please call 911 immediately. . Non-Emergent Contact Non-Emergency issues call your: Primary Care Provider . . "Provider Documentation" section prepared by Eleni Rose. . VTE Core Measure Inpt VTE Proph given/why not?: Other Anticoagulation (Xarelto )
[2016-09-15 11:38] VITALS: BP 117/61; PULSE 64; TEMP 36.6; O2SAT 98
--- NOTE | 2016-09-15 11:49 | Progress Note ---
Internal Med Progress Note Date of Service: Sep 15, 2016. Provider Documentation: SUBJECTIVE: remains in sinus rhythm , rate controlled no complain of chest pain or SOB no palpitation given AM dose of Sotalol Qtc remains stable Ok to be discharged home today OBJECTIVE: Vital Signs-as noted below Exam: General-no sign of distress Eyes-sclera non icteric , PERRLA/EOMI ENT-NAd Neck-no JVD Lungs-CTA Heart-regular S1/S2 Abdomen-soft ,non tender Extremities-no rash or deformity Neuro-no focal deficit ,AAO X 3 Lab data as noted below. ASSESSMENT & PLAN: This is a 66 year old male with a PMH of HLD, recent admission to [facility] due to atrial fibrillation s/p cardioversion on 09/04 presented due to recurrence of A. Fib Atrial Fibrillation spontaneously converted to sinus rhythm appreciate cardiology input started Sotalol cont on Xarelto EKG with no significant QTc prolongation stable to be discharged home AFLUTTER : recently found to have PAF and underwent EMERY guided cardioversion spontaneously converted to sinus cont Sotalol out pt EKG on next physician visit for monitoring QTc DVT ppx Xarelto FULL CODE DISPOSITION discharge home today medicine follow up with Dr Castro Cardiology follow up with Dr Gabino Zaldivar Vital Signs: Date Time Temp Pulse Resp B/P (MAP) Pulse Ox O2 Delivery O2 Flow Rate FiO2 09/15/16 11:38 36.6 64 18 98 Room Air 09/15/16 11:16 36.6 64 18 117/61 (79) 98 Room Air 09/15/16 08:00 Room Air 09/15/16 07:57 36.8 59 18 107/70 (82) 96 Room Air 09/15/16 04:00 Room Air 09/15/16 03:55 36.5 57 18 98/62 (74) 98 Room Air 96/62 (73) 09/14/16 23:59 Room Air 09/14/16 23:50 36.9 65 16 116/55 (75) 99 Room Air 09/14/16 20:00 Room Air 09/14/16 19:17 37.2 70 22 128/83 (98) 98 Room Air 09/14/16 16:05 Room Air 09/14/16 15:26 36.6 69 22 91/56 (68) 99 Room Air Lab Results: Results Past 24 Hours Test 09/15/16 07:08 Range/Units Creatinine 1.20 0.60-1.40 mg/dl Est Creatinine Clear Calc Drug Dose 85.8 ml/min Estimated GFR () 73.1 Estimated GFR (Non- 63.1
--- NOTE | 2016-09-15 11:50 | Discharge Summary ---
Discharge Summary Date of Service Sep 15, 2016. Discharge Summary Admission Date: Sep 12, 2016 at 15:41 Discharge Date: Sep 15, 2016 Discharge Disposition: Home Principal Diagnosis: AFLUTTER /AFIB Procedures: CARDIAC MONITORING Consultations: [facility] Medication Reconciliation New Medications: Sotalol HCl (Sotalol HCl) 80 Mg Tab 80 MG PO BID for 30 Days, #60 TAB 3 Refills Continued Medications: Rivaroxaban (Xarelto) 20 Mg Tab 20 MG PO DAILY for 30 Days, #30 TABS 2 Refills Discontinued Medications: Metoprolol Succinate (Metoprolol Succinate ER) 25 Mg Tabcr 25 MG PO BID for 30 Days, #60 TAB 2 Refills Referrals At Discharge Follow up Referrals: Secy Referral - Within 1-2 Weeks with Fred Zaldivar M.D. Admission Information HPI (per Admitting provider): 66 year old male who was referred to the ER by his PCP for a fast heart rate. Patient was recently admitted to [facility] 09/01 - 09/04 for new onset atrial fibrillation. He underwent cardioversion on 09/04 with conversion to NSR. He was discharged on metoprolol and Xarelto. Patient reports he has continued to feel fatigued since being home. He has a home heart rate monitor and reports his heart rate has been ranging from the 50s to 170s. He reports feeling palpitations one time but denies any further chest pain or pressure. He reports mild lightheadedness and dizziness, no syncopal events. He denies abdominal pain , nausea, vomiting, and diarrhea. No fever or chills. He denies urinary symptoms. He had provided heart rate readings to his accounts payable analyst who increased his metoprolol however the patient has not started taking the higher dose yet. Patient was being seen today a his PCP for follow up and heart rate was found to be significantly elevated so he was referred to the ER for further evaluation. Upon arrival to the ER, patient was found to be in atrial flutter with rates in the 140s. He was given metoprolol 5mg IV x 3 without improvement in his rate. He was then bolused with Cardizem 20mg IV and started on a drip and heart rate has improved. Labs are unremarkable. Physical Exam (per Admitting): General Appearance: no apparent distress Head: normocephalic Eyes: normal inspection ENT: hearing grossly normal Neck: supple, thyroid normal Respiratory/Chest: lungs clear, normal breath sounds, no respiratory distress Cardiovascular: no edema, normal peripheral pulses, + irregularly irregular (rate controlled) Abdomen/GI: normal bowel sounds, non tender, soft Extremities/Musculoskelatal: normal inspection, no calf tenderness Neurologic/Psych: no motor/sensory deficits, alert, normal mood/affect, oriented x 3 Skin: normal color, warm/dry Hospital Course This is a 66 year old male with a PMH of HLD, recent admission to [facility] due to atrial fibrillation s/p cardioversion on 09/04 presented due to recurrence of A. Fib Atrial Fibrillation spontaneously converted to sinus rhythm appreciate cardiology input started Sotalol cont on Xarelto EKG with no significant QTc prolongation stable to be discharged home AFLUTTER : recently found to have PAF and underwent EMERY guided cardioversion spontaneously converted to sinus cont Sotalol out pt EKG on next physician visit for monitoring QTc DVT ppx Xarelto FULL CODE DISPOSITION discharge home today medicine follow up with Dr Castro Cardiology follow up with Dr Fred Zaldivar Total time spent on discharge = 35 MINS This includes examination of the patient, discharge planning, medication reconciliation, and communication with other providers. Discharge Instructions DI: Medical v4 Discharge Instructions Date of Service Sep 15, 2016. Admission Reason for Admission: Atrial Flutter Discharge Discharge Diagnosis / Problem: AFLUTTER /AFIB Discharge Goals Goal(s): Decrease discomfort, Improve disease control, Diagnostic testing Activity Recommendations Activity Limitations: resume your previous activity Shower/Bathe: no limitations . Instructions / Follow-Up Instructions / Follow-Up HOSPITAL FOLLOW UP : 09/21/2016 9:00 AM Aldo Castro DO General Internal Medicine [facility] PLEASE HAVE EKG DONE AT FARRAR 'S OFFICE ON 09/21/16 CARDIOLOGY FOLLOW UP WITH DR FRED ZALDIVAR IN 1-2 WEEKS OFFICE WILL CALL WITH APPOINTMENT Current Hospital Diet Patient's current hospital diet: AHA Diet (Heart Healthy) Discharge Diet Recommended Diet: AHA Diet (Heart Healthy) Pending Studies Studies pending at discharge: no Medical Emergencies . Who to Call and When: Medical Emergencies: If at any time you feel your situation is an emergency, please call 911 immediately. . Non-Emergent Contact Non-Emergency issues call your: Primary Care Provider . . "Provider Documentation" section prepared by Eleni Rose. . VTE Core Measure Inpt VTE Proph given/why not?: Other Anticoagulation (Xarelto ) Additional Copies To Aldo Castro D.O. Zen,Fred Dillon M.D.
--- NOTE | 2016-09-15 11:52 | Cardiology Follow-Up ---
Subjective Subjective Date of Service: Sep 15, 2016. Pt evaluation today including: conversation w/ patient, physical exam, chart review, lab review, review of studies, review of inpatient medication list Additional Details: Pt seen and examined, without complaint. Denies cp, sob, palpitations, lightheadedness or dizziness. Tele reviewed: sinus rhythm without arrhythmia or significant ectopy. Problem List Medical Problems: (1) Acute chest pain Status: Acute (2) Atrial fibrillation with RVR Status: Acute (3) Febrile illness Status: Acute (4) Pneumonia Status: Acute Review of Systems Constitutional: No fever, No chills Respiratory: No cough, No sputum, No shortness of breath Cardiac: No chest pain, No edema, No palpitations Abdomen: No pain, No nausea, No vomiting, No diarrhea, No GI bleeding Heme: No abnormal bleeding/bruising Objective Vital Signs Last Vital Signs Documentation Date Time Temp Pulse Resp B/P (MAP) Pulse Ox O2 Delivery O2 Flow Rate FiO2 09/15/16 11:38 36.6 64 18 98 Room Air 09/15/16 11:16 117/61 (79) Physical Exam: General Appearance: no apparent distress Eyes: bilateral eyes normal inspection, bilateral eyes PERRL, bilateral eyes EOMI ENT: normal ENT inspection, hearing grossly normal, pharynx normal Neck: supple, no adenopathy, thyroid normal, no JVD, no carotid bruits, trachea midline Respiratory/Chest: chest non-tender, lungs clear, normal breath sounds, no respiratory distress, no accessory muscle use Cardiovascular: no edema, no murmur, + irregularly irregular Abdomen: normal bowel sounds, non tender, soft Extremities: non-tender, normal inspection, no pedal edema Neurologic/Psychiatric: no motor/sensory deficits, alert, normal mood/affect Skin: normal color, warm/dry, no rash Lymphatic: no adenopathy Assessment and Plan 1. new onset atrial flutter with 2:1 conduction new arrhythmia recently found to have PAF and underwent EMERY guided cardioversion sotalol started and tolerating well spontaneously converted to sinus early this AM no arrhythmias. cont Xarelto QT slightly increases but remains below 500ms no arrhythmias will d/c to home on sotalol 80mg bid will check ekg as outpatient in 1 week 2. atrial fibrillation recurrent cont sotalol cont Xarelto ok to d/c to home my office will call to arrange f/u
[2016-10-11] MEDS ORDERED: SOTA120T6 PO (14:59)
== END 2016-09-15 13:01 | disposition home or self-care (01) | DRG 310 ==
LOC: C.EDB 12:36 → C.2T 15:41 → ENRESERV 16:09 → CANRESERV 16:09 → ENRESERV 17:15
PROVIDERS: ADMIT Internal Medicine; ATTEND Hospitalist
DX: I48.92 Unspecified atrial flutter (principal); I48.0 Paroxysmal atrial fibrillation; E78.5 Hyperlipidemia, unspecified; Z96.653 Presence of artificial knee joint, bilateral; Z79.01 Long term (current) use of anticoagulants; Z86.718 Personal history of other venous thrombosis and embolism; Z86.711 Personal history of pulmonary embolism; Z88.6 Allergy status to analgesic agent; Z91.041 Radiographic dye allergy status; Z82.49 Family history of ischemic heart disease and other diseases of the circulatory system; Z87.891 Personal history of nicotine dependence; Z87.01 Personal history of pneumonia (recurrent)

== ENCOUNTER 2016-10-09 14:18 | Inpatient (IN) | payer OTHER ==
[~2016-10-09] VITALS: Ht 182.9 cm; Wt 122.2 kg
[~2016-10-09 14:18] MED LIST changes: +BTP80 PO; -TPRSR25 PO
[2016-10-09] MEDS ORDERED: DILTIAZEM BOLUS / DRIP IV STA (14:52)
[2016-10-09] MEDS ORDERED: SODIUM CHLORIDE 0.9% 1000ML 2,000 ML IV STA (14:52)
[2016-10-09 15:04] LABS: BASO % 0.4 %; BASO ABS # 0.03 K/uL (0-0.2); COMPLETE YES; EOS % 3.1 %; HEMATOCRIT 39.4 % (42-52); IG% 0.1 %; LYMPH % 48.4 %; LYMPH ABS # 3.41 K/uL (1.2-3.4); MEAN CORPUSCULAR HEMOGLOBIN 30.9 pg (25-34); MEAN CORPUSCULAR HGB CONC 35.5 g/dl (32-36); MEAN PLATELET VOLUME 9.8 fL (7.4-10.4); MONO % 9.1 %; NEUT % 38.9 %; PLATELET COUNT 274 K/uL (130-400); RED BLOOD COUNT 4.53 M/uL (4.7-6.1); WHITE BLOOD COUNT 7.04 K/uL (4.8-10.8)
[2016-10-09] MEDS ORDERED: DILTIAZEM HCL INJ 125 MG in DEXTROSE 5% 100ML IV PRN (15:15)
--- NOTE | 2016-10-09 15:16 | DIAGNOSTIC IMAGING REPORT ---
CHEST ONE VIEW PORTABLE CLINICAL HISTORY: Atypical chest pain COMPARISON STUDY: No previous studies for comparison. FINDINGS: The cardiac and mediastinal contours are normal. There is no evidence of focal pulmonary consolidation. There is no evidence of failure. No pleural effusions are visualized.[ IMPRESSION: No active disease in the chest. Electronically signed by: Jake Smith M.D. 10/09/2016 3:15 PM Dictated Date/Time: 10/09/2016 3:14 PM
[2016-10-09 15:30] LABS: BLOOD UREA NITROGEN 17 mg/dl (7-18); BUN/CREATININE RATIO 14.4 (10-20); CALCIUM 8.9 mg/dl (8.5-10.1); CARBON DIOXIDE 27 mmol/L (21-32); CHLORIDE 107 mmol/L (98-107); GLUCOSE 90 mg/dl (70-99); POTASSIUM 4.3 mmol/L (3.5-5.1); SODIUM 140 mmol/L (136-145)
[2016-10-09 15:34] LABS: CKMB/CK RATIO 0.8 (0-3.0)
[2016-10-09] MEDS ORDERED: NITROGLYCERIN 0.4 MG SL PER TAB CHARGE SL PRN (17:00)
[2016-10-09 17:13] VITALS: BP 125/75; PULSE 70; TEMP 36.3; O2SAT 100; Ht 182.9 cm; Wt 122.2 kg
--- NOTE | 2016-10-09 17:58 | History and Physical ---
History & Physical Date & Time of Service: Oct 09, 2016 at 17:54 Chief Complaint: AFIB Primary Care Physician: Aldo Castro D.O. History of Present Illness This is a 66 year old M with PMH recently diagnosed atrial fibrillation in August 2016, has been on anticoagulation with Xarelto, originally rate controlled with metoprolol, was then evaluated for cardioversion, and then place on oral sotalol. Patient was walking from house to outside this morning when feeling short of breath. Presented to the ED with afib RVR with heart rate above 110. Patient then started on diltiazem drip. Patient seen and examined in the ED breathing comfortably on room air able to move with dyspnea to cooperate with physical exam. Past Medical/Surgical History Medical Problems: (1) DVT (deep venous thrombosis) Permanent Comment: provoked, completed Coumadin therapy Status: Chronic (2) Dyslipidemia Status: Chronic (3) PAF (paroxysmal atrial fibrillation) Status: Chronic (4) Pulmonary embolism Permanent Comment: provoked, completed Coumadin therapy Status: Chronic Surgical Problems: (1) H/O cervical discectomy Status: Chronic (2) History of tonsillectomy and adenoidectomy Status: Chronic (3) Status post total knee replacement, left Status: Chronic (4) Status post total knee replacement, right Status: Chronic Family History FH: heart attack FATHER (fatal [place] at age 58) Social History Smoking Status: Never Smoker Marital Status: Immunizations History of Influenza Vaccine: Yes Influenza Vaccine Date: Dec 14, 2015 History of Tetanus Vaccine?: Yes Tetanus Immunization Date: June 16, 2008 Multi-Drug Resistant Organisms History of MDRO: No Allergies Coded Allergies: No Known Allergies (Unverified , 10/09/16) Home Medications Scheduled Rivaroxaban (Xarelto), 20 MG PO DAILY Sotalol HCl (Sotalol HCl), 80 MG PO BID Review of Systems Constitutional: No fever Eyes: No worsening of vision ENT: No sore throat Respiratory: + shortness of breath, + dyspnea on exertion, No cough Cardiovascular: No chest pain, No palpitations Abdomen: No pain, No nausea, No vomiting Genitourinary - Male: No dysuria Neurologic: No paralysis, No numbness/tingling Psychiatric: No substance abuse Endocrine: No fatigue Hematologic / Lymphatic: No abnormal bleeding/bruising Integumentary: No rash Physical Exam Vital Signs Date Time Temp Pulse Resp B/P (MAP) Pulse Ox O2 Delivery O2 Flow Rate FiO2 10/09/16 17:13 36.3 70 19 125/75 100 Room Air 10/09/16 17:07 75 15 98 10/09/16 17:02 78 18 89 10/09/16 17:01 134/61 10/09/16 16:57 69 19 96 10/09/16 16:52 75 9 97 10/09/16 16:47 75 23 95 10/09/16 16:46 126/70 10/09/16 16:42 85 33 98 10/09/16 16:37 79 17 96 10/09/16 16:32 74 15 94 10/09/16 16:31 115/72 10/09/16 16:27 70 7 97 10/09/16 16:22 74 23 98 10/09/16 16:17 88 20 97 10/09/16 16:16 91/67 10/09/16 16:12 83 18 97 10/09/16 16:07 75 23 96 10/09/16 16:02 74 20 96 10/09/16 16:01 104/69 10/09/16 15:57 81 15 96 10/09/16 15:52 69 21 96 10/09/16 15:47 79 23 98 10/09/16 15:44 120 20 95/77 98 Room Air 10/09/16 15:42 95/77 10/09/16 15:33 102 36 92 10/09/16 15:29 91/62 10/09/16 15:18 86 21 97 10/09/16 15:03 91 26 97 10/09/16 15:01 88/58 10/09/16 14:59 115 10/09/16 14:47 101/84 10/09/16 14:45 98 Room Air 10/09/16 14:23 36.6 115 18 107/72 92 Room Air General Appearance: no apparent distress Head: normocephalic, atraumatic Eyes: normal inspection, PERRL, EOMI, sclerae normal ENT: hearing grossly normal, pharynx normal Neck: supple, no adenopathy, thyroid normal, no JVD, no carotid bruits, trachea midline Respiratory/Chest: chest non-tender, lungs clear, normal breath sounds, no respiratory distress, no accessory muscle use Cardiovascular: no edema, + tachycardia, + irregularly irregular Abdomen/GI: normal bowel sounds, non tender, soft, no pulsatile mass Back: normal inspection, no muscle spasm, normal range of motion Extremities/Musculoskelatal: normal inspection, no calf tenderness, normal capillary refill, no pedal edema, normal range of motion Neurologic/Psych: distributor 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 II-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 as tested, no motor/sensory deficits, alert, oriented x 3 Skin: normal color, warm/dry, no rash Diagnostics Laboratory Results Results Past 24 Hours Test 10/09/16 14:55 Range/Units White Blood Count 7.04 4.8-10.8 K/uL Red Blood Count 4.53 4.7-6.1 M/uL Hemoglobin 14.0 14.0-18.0 g/dL Hematocrit 39.4 42-52 % Mean Corpuscular Volume 87.0 80-100 fL Mean Corpuscular Hemoglobin 30.9 25-34 pg Mean Corpuscular Hemoglobin Concent 35.5 32-36 g/dl Platelet Count 274 130-400 K/uL Mean Platelet Volume 9.8 7.4-10.4 fL Neutrophils (%) (Auto) 38.9 % Lymphocytes (%) (Auto) 48.4 % Monocytes (%) (Auto) 9.1 % Eosinophils (%) (Auto) 3.1 % Basophils (%) (Auto) 0.4 % Neutrophils # (Auto) 2.73 1.4-6.5 K/uL Lymphocytes # (Auto) 3.41 1.2-3.4 K/uL Monocytes # (Auto) 0.64 0.11-0.59 K/uL Eosinophils # (Auto) 0.22 0-0.5 K/uL Basophils # (Auto) 0.03 0-0.2 K/uL RDW Standard Deviation 42.0 36.4-46.3 fL RDW Coefficient of Variation 13.2 11.5-14.5 % Immature Granulocyte % (Auto) 0.1 % Immature Granulocyte # (Auto) 0.01 0.00-0.02 K/uL Sodium Level 140 136-145 mmol/L Potassium Level 4.3 3.5-5.1 mmol/L Chloride Level 107 98-107 mmol/L Carbon Dioxide Level 27 21-32 mmol/L Anion Gap 6.0 3-11 mmol/L Blood Urea Nitrogen 17 7-18 mg/dl Creatinine 1.20 0.60-1.40 mg/dl Est Creatinine Clear Calc Drug Dose 83.0 ml/min Estimated GFR () 73.1 Estimated GFR (Non- 63.1 BUN/Creatinine Ratio 14.4 10-20 Random Glucose 90 70-99 mg/dl Calcium Level 8.9 8.5-10.1 mg/dl Total Creatine Kinase 236 39-308 U/L Creatine Kinase MB 2.0 0.5-3.6 ng/ml Creatine Kinase MB Ratio 0.8 0-3.0 Troponin I < 0.015 0-0.045 ng/ml EKG afib with RVR Impression Assessment and Plan This is a 66 year old M with PMH recently diagnosed atrial fibrillation in August 2016, has been on anticoagulation with Xarelto, originally rate controlled with metoprolol, was then evaluated for cardioversion, and then place on oral sotalol. Patient was walking from house to outside this morning when feeling short of breath. Presented to the ED with afib RVR with heart rate above 110. Patient then started on diltiazem drip. Patients heart decreasing to 80s. -Cardiology service evaluation pending -unless instructed by cardiology service for other medication recommendations, will continue patient on home dose Xaralto, and Sotalol -trend troponins, cardiac telemetry, TTE Full Code Status Advanced Directives Existing Living Will: No Existing Power of Wired Music Operator: No Resuscitation Status FULL RESUSCITATION VTE Prophylaxis VTE Risk Assessment Done? Y/N: Yes Risk Level: Moderate
[2016-10-09] MEDS: SOTALOL HCL 80 MG TAB PO SCH (18:23)
[2016-10-09 19:24] LABS: ALKALINE PHOSPHATASE 63 U/L (45-117); ALT/SGPT 33 U/L (12-78)
--- NOTE | 2016-10-09 21:47 | EMERGENCY ROOM VISIT NOTE ---
History Report prepared by Chacorta: Jackie Pollard Under the Supervision of: Dr. Hamzah Wong D.O. First contact with patient: 14:38 Chief Complaint: IRREGULAR HEARTBEAT Stated Complaint: A-FIB Nursing Triage Summary: pt reports he was sent here from pcp for a fib. has been seen 2x in past month for a fib. was ffeling lightheaded dizzy and sob this am upon waking History of Present Illness The patient is a 66 year old male who presents to the Emergency Room with complaints of a persistent irregular heartbeat. He was accompanied by his . He has a history of atrial fibrillation with RVR, originally diagnosed approximately 5 weeks ago, and reports he was seen by his PCP twice in the past month for his a-fib. At the end of August, the patient also had 2 short hospital stays for his a-fib. He states he was less symptomatic at that time and experienced no dizziness or shortness of breath with the earlier episodes. He takes daily Xarelto and Sotalol and admits he has been cardioverted in the past for his atrial fibrillation, but the cardioversion was not successful during his 2nd hospital stay. The patient reports he woke up this morning feeling dizzy and short of breath, so he went to see his PCP, who referred him here to the ED. He denies missing any recent doses of his medications. The patient also denies any headache, change in vision, fevers, chest pain, abdominal pain, nausea, vomiting, diarrhea, pain with urination, melena or hematochezia. He saw both Dr. Chavez and Dr. Zaldivar while he was here in the hospital, but states he has yet to see Dr. Zaldivar, his assigned [facility], in the office yet. Source of History: patient Onset: this morning Position: chest Quality: other (irregular heartbeat) Timing: other (persistent) Associated Symptoms: + SOB, No fevers, No headache, No chest pain, No nausea , No vomiting, No abdominal pain, No melena, No hematochezia, No diarrhea, No urinary symptoms Review of Systems See HPI for pertinent positives & negatives. A total of 10 systems reviewed and were otherwise negative. Past Medical & Surgical Medical Problems: (1) DVT (deep venous thrombosis) (2) Dyslipidemia (3) PAF (paroxysmal atrial fibrillation) (4) Pulmonary embolism Surgical Problems: (1) H/O cervical discectomy (2) History of tonsillectomy and adenoidectomy (3) Status post total knee replacement, left (4) Status post total knee replacement, right Family History FH: heart attack FATHER (fatal [place] at age 58) Social History Smoking Status: Never Smoker Alcohol Use: none Drug Use: none Marital Status: Housing Status: lives with family Current/Historical Medications Scheduled Rivaroxaban (Xarelto), 20 MG PO DAILY Sotalol HCl (Sotalol HCl), 80 MG PO BID Allergies Coded Allergies: No Known Allergies (Unverified , 10/09/16) Physical Exam Vital Signs Date Time Temp Pulse Resp B/P (MAP) Pulse Ox O2 Delivery O2 Flow Rate FiO2 10/09/16 16:52 75 9 97 10/09/16 16:47 75 23 95 10/09/16 16:46 126/70 10/09/16 16:42 85 33 98 10/09/16 16:37 79 17 96 10/09/16 16:32 74 15 94 10/09/16 16:31 115/72 10/09/16 16:27 70 7 97 10/09/16 16:22 74 23 98 10/09/16 16:17 88 20 97 10/09/16 16:16 91/67 10/09/16 16:12 83 18 97 10/09/16 16:07 75 23 96 10/09/16 16:02 74 20 96 10/09/16 16:01 104/69 10/09/16 15:57 81 15 96 10/09/16 15:52 69 21 96 10/09/16 15:47 79 23 98 10/09/16 15:44 120 20 95/77 98 Room Air 10/09/16 15:42 95/77 10/09/16 15:33 102 36 92 10/09/16 15:29 91/62 10/09/16 15:18 86 21 97 10/09/16 15:03 91 26 97 10/09/16 15:01 88/58 10/09/16 14:59 115 10/09/16 14:47 101/84 10/09/16 14:45 98 Room Air 10/09/16 14:23 36.6 115 18 107/72 92 Room Air Physical Exam GENERAL: Patient is sitting up in bed, alert, well appearing, well nourished, no distress, non-toxic EYE EXAM: normal conjunctiva OROPHARYNX: no exudate, no erythema, lips, buccal mucosa, and tongue normal and mucous membranes are moist NECK: supple, no nuchal rigidity, no adenopathy, non-tender LUNGS: Clear to auscultation. Normal chest wall mechanics HEART: Tachycardic heart rate, irregularly irregular rhythm, no murmurs ABDOMEN: abdomen soft, non-tender, normo-active bowel sounds, no masses, no rebound or guarding. BACK: Back is symmetrical on inspection and there is no deformity, no midline tenderness, no CVA tenderness. SKIN: no rashes and no bruising UPPER EXTREMITIES: upper extremities are grossly normal. LOWER EXTREMITIES: No pitting edema. Calves are equal bilaterally. NEURO EXAM: Normal sensorium, cranial nerves II-XII grossly intact, normal speech, no gross weakness of arms, no gross weakness of legs. Gross sensation intact. Medical Decision & Procedures ER Provider Diagnostic Interpretation: Radiology results as stated below per my review and the radiologist's interpretation: CHEST ONE VIEW PORTABLE CLINICAL HISTORY: Atypical chest pain COMPARISON STUDY: No previous studies for comparison. FINDINGS: The cardiac and mediastinal contours are normal. There is no evidence of focal pulmonary consolidation. There is no evidence of failure. No pleural effusions are visualized. IMPRESSION: No active disease in the chest. Electronically signed by: Jake Smith M.D. 10/09/2016 3:15 PM Laboratory Results 10/09/16 14:55 Red Blood Count 4.53, Mean Corpuscular Volume 87.0, Mean Corpuscular Hemoglobin 30.9, Mean Corpuscular Hemoglobin Concent 35.5, Mean Platelet Volume 9.8, Neutrophils (%) (Auto) 38.9, Lymphocytes (%) (Auto) 48.4, Monocytes (%) (Auto) 9.1, Eosinophils (%) (Auto) 3.1, Basophils (%) (Auto) 0.4, Neutrophils # (Auto) 2.73, Lymphocytes # (Auto) 3.41, Monocytes # (Auto) 0.64, Eosinophils # (Auto) 0.22, Basophils # (Auto) 0.03 10/09/16 14:55 Test 10/09/16 14:55 White Blood Count 7.04 K/uL (4.8-10.8) Red Blood Count 4.53 M/uL (4.7-6.1) Hemoglobin 14.0 g/dL (14.0-18.0) Hematocrit 39.4 % (42-52) Mean Corpuscular Volume 87.0 fL (80-100) Mean Corpuscular Hemoglobin 30.9 pg (25-34) Mean Corpuscular Hemoglobin Concent 35.5 g/dl (32-36) Platelet Count 274 K/uL (130-400) Mean Platelet Volume 9.8 fL (7.4-10.4) Neutrophils (%) (Auto) 38.9 % Lymphocytes (%) (Auto) 48.4 % Monocytes (%) (Auto) 9.1 % Eosinophils (%) (Auto) 3.1 % Basophils (%) (Auto) 0.4 % Neutrophils # (Auto) 2.73 K/uL (1.4-6.5) Lymphocytes # (Auto) 3.41 K/uL (1.2-3.4) Monocytes # (Auto) 0.64 K/uL (0.11-0.59) Eosinophils # (Auto) 0.22 K/uL (0-0.5) Basophils # (Auto) 0.03 K/uL (0-0.2) RDW Standard Deviation 42.0 fL (36.4-46.3) RDW Coefficient of Variation 13.2 % (11.5-14.5) Immature Granulocyte % (Auto) 0.1 % Immature Granulocyte # (Auto) 0.01 K/uL (0.00-0.02) Anion Gap 6.0 mmol/L (3-11) Est Creatinine Clear Calc Drug Dose 83.0 ml/min Estimated GFR () 73.1 Estimated GFR (Non- 63.1 BUN/Creatinine Ratio 14.4 (10-20) Calcium Level 8.9 mg/dl (8.5-10.1) Total Creatine Kinase 236 U/L (39-308) Creatine Kinase MB 2.0 ng/ml (0.5-3.6) Creatine Kinase MB Ratio 0.8 (0-3.0) Laboratory results per my review. Medications Administered Medications (Trade) Dose Ordered Sig/Debi Route Start Time Stop Time Status Last Admin Dose Admin Sodium Chloride 2,000 ml @ 999 mls/hr Q2H1M STAT IV 10/09/16 14:52 10/09/16 16:52 DC 10/09/16 15:41 999 MLS/HR Diltiazem HCl 125 mg/Dextrose 125 ml @ 0 mls/hr Q0M PRN IV 10/09/16 15:15 10/09/16 17:45 DC 10/09/16 15:42 5 MLS/HR ECG Indication: SOB/dyspnea Rate (beats per minute): 107 Rhythm: atrial fibrillation Findings: other (atrial fibrillation, normal axis) ED Course ED COURSE: Vital signs were reviewed and showed the patient is tachycardic. The patients medical record was reviewed The above diagnostic studies were performed and reviewed. ED treatments and interventions as stated above. 1445: The patient was evaluated in room C4. A complete history and physical examination was performed. 1451: I discussed the patients case with Dr. Chavez, [facility]. He recommends we continue Sotalol for the patient as cardioversion has failed in the past. 1452: NSS 2000 ml @ 999 mls/hr IV, Diltiazem HCl 1 ea IV. 1515: Diltiazem HCl 125 mg/Dextrose 125 ml @ 0 mls/hr IV. 1533: I reevaluated the patient. His heart rate is in the low 100's. He is slightly hypertensive and getting a fluid bolus. 1550: I discussed the patients case with Sylwia Gutierrez PA-C, [facility] Hospitalist. The patient will be further evaluated. 1600: Upon reevaluation, the patient is resting comfortably. I discussed my findings with the patient and he understands and agrees with the treatment plan. Based on the patients age, coexisting illnesses, exam and lab findings the decision to treat as an inpatient was made. The patient remained stable while under my care. The patient will be evaluated for further management. Medical Decision Differential diagnoses includes but is not limited to pneumonia, bronchitis, COPD/Asthma exacerbation, pneumothorax, pulmonary embolism, congestive heart failure, acute coronary syndrome Patient is a 66 -year-old male who presents the ER for shortness of breath and feeling weak since this afternoon. He has a history of A. fib. He has been previously cardioverted and placed on sotalol. Upon presentation the ER he is in A. fib with RVR and rate in the 130s. His placed on a Cardizem drip and bolus. Heart rate did improve. Initially he was hypotensive with a bolus was not given. Blood pressure was in the 80s systolic. He was given a bolus normal saline. Patient was noted to internal medicine for further workup of his A. fib with RVR on a Xa inhibitor. Medication Reconcilliation Current Medication List: was personally reviewed by me Blood Pressure Screening Patient's blood pressure: Low blood pressure Low blood pressure was felt to be situational. Consults Time Called: 1445 Consulting Physician: [facility] Returned Call: [phone] I discussed the patients case with [facility]. He recommends we continue Sotalol for the patient as cardioversion has failed in the past. Additional Consults: Time Called: 1545 Consulted Physician: Sylwia Gutierrez PA-C, [facility] Hospitalist Returned Call: [phone] Additional Comments: I discussed the patients case with [facility] The patient will be further evaluated. Impression Primary Impression: Atrial fibrillation with RVR Critical Care I have personally spent 35 minutes of critical care time in the direct management of this patient. This includes bedside care, interpretation of diagnostic studies, and testing, discussion with consultants, patient, and family members, and other required patient management activities. This 35 minutes is in excess of all separately billable procedures. Scribe Attestation The scribe's documentation has been prepared under my direction and personally reviewed by me in its entirety. I confirm that the note above accurately reflects all work, treatment, procedures, and medical decision making performed by me. Departure Information Dispostion Being Evaluated By Hospitalist Referrals Aldo Castro D.O. (PCP) Patient Instructions My [facility]
[2016-10-09 23:55] VITALS: BP 101/65; PULSE 82; TEMP 36.3; O2SAT 98
--- NOTE | 2016-10-09 23:57 | CARDIOLOGY CONSULTATION ---
DATE OF CONSULTATION: 10/09/2016 REFERRING: Dr. North. PRIMARY CARE PHYSICIAN: Dr. Castro. INDICATIONS: Afib/flutter with rapid ventricular response. HISTORY OF PRESENT ILLNESS: The patient is a 66-year-old male previously hospitalized at [facility] on 09/01/2016 with atrial fibrillation with recurrence on 09/12/2016. After second recurrence, the patient was begun on sotalol with spontaneous conversion to sinus rhythm. He has remained on chronic anticoagulation with Eliquis. He presents now having felt well other than some mild fatigue until this morning when after waking and rising up, he found himself to be in atrial fibrillation with elevated ventricular response rates. Heart rates 100-120. He presented to the Emergency Room for further evaluation after presenting with primary care physician today, main complaint is being mild lightheadedness and malaise. He notes no cough, hoarseness, wheeze or hemoptysis. Notes no melena or hematochezia, dysuria or hematuria. Notes no bleeding difficulties. Weight and appetite have been stable. Anticipate sleep study in the next week's time. Notes no unexplained fevers or infections. REVIEW OF SYSTEMS: Otherwise negative. ALLERGIES: None. MEDICATIONS: Prior to hospitalization were rivaroxaban 20 mg daily, sotalol 80 mg twice per day. PAST SURGICAL HISTORY: Notable for prior bilateral knee replacements 2012, cervical hemilaminectomy in 1995, remote tonsillectomy and dental extraction. FAMILY HISTORY: Positive for heart disease in father with premature coronary artery disease. 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 He is a nonsmoker and very rare alcohol user. PHYSICAL EXAMINATION: VITAL SIGNS: Heart rate is 110 and blood pressure is 125/75. NECK: Thick. There is no distinct jugular venous distention. There are no carotid bruits. LUNGS: Clear to auscultation. CARDIOVASCULAR: Irregular, irregular. There is no S3 gallop. ABDOMEN: Soft, nontender. There is no hepatosplenomegaly. There is no hepatojugular reflux. EXTREMITIES: Without cyanosis or clubbing. There is trace pedal edema. NEUROLOGIC: The patient is answering questions appropriately. LABORATORY DATA: Reveal normal electrolytes and normal renal function. EKG reveals atrial fibrillation with elevated ventricular response rate. Rate 107. QT corrected to 480. Lipid panel done on 07/01/2016 demonstrated a cholesterol of 187, HDL 42 and LDL 107. IMPRESSION: A 66-year-old male now with recurrent atrial fibrillation/flutter with elevated ventricular response rates. PLAN: Will be to increase sotalol dosing to 120 mg twice per day while in hospital on telemetry, observe for signs or symptoms of spontaneous conversion if not, would consider synchronized electrical cardioversion. We will follow patient closely in hospital and further recommendations as his clinical course proceeds. Will continue anticoagulation with Eliquis. The patient will be kept n.p.o. after midnight except for medications.
[2016-10-10 03:31] VITALS: BP 114/71; PULSE 70; TEMP 36.4; O2SAT 99
[2016-10-10 05:46] LABS: BASO % 0.4 %; BASO ABS # 0.02 K/uL (0-0.2); COMPLETE YES; EOS % 4.5 %; HEMATOCRIT 36.9 % (42-52); LYMPH % 46.6 %; LYMPH ABS # 2.47 K/uL (1.2-3.4); MEAN CELL VOLUME 89.1 fL (80-100); MEAN CORPUSCULAR HGB CONC 33.6 g/dl (32-36); MEAN PLATELET VOLUME 9.8 fL (7.4-10.4); MONO % 9.8 %; NEUT % 38.7 %; PLATELET COUNT 196 K/uL (130-400); RED BLOOD COUNT 4.14 M/uL (4.7-6.1)
[2016-10-10 06:12] LABS: ALT/SGPT 30 U/L (12-78); BLOOD UREA NITROGEN 15 mg/dl (7-18); BUN/CREATININE RATIO 15.2 (10-20); CALCIUM 8.5 mg/dl (8.5-10.1); CARBON DIOXIDE 26 mmol/L (21-32); CHLORIDE 111 mmol/L (98-107); GLUCOSE 79 mg/dl (70-99); POTASSIUM 3.7 mmol/L (3.5-5.1); SODIUM 146 mmol/L (136-145)
[2016-10-10 06:28] LABS: ALB/GLOB RATIO 0.9 (0.9-2); ALKALINE PHOSPHATASE 58 U/L (45-117); AST/SGOT 22 U/L (15-37)
[2016-10-10 07:33] VITALS: BP 142/81; PULSE 92; TEMP 36.8; O2SAT 99
[2016-10-10] MEDS: SOTALOL HCL 80 MG TAB PO SCH ×2 (08:03→16:46)
[2016-10-10] MEDS: RIVAROXABAN 20 MG TAB PO SCH (08:04)
--- NOTE | 2016-10-10 09:01 | ECHOCARDIOGRAM REPORT ---
*NOTICE TO RECEIVING [facility] This information is strictly Confidential and protected under [place] law. [place] law prohibits you from making any further disclosure of this information unless further disclosure is expressly permitted by the written consent of the person to whom it pertains or is authorized by law. A general authorization for the release of medical or other information is not sufficient for this purpose. Hospital accepts no responsibility if the information is made available to any other person, INCLUDING THE PATIENT. Interpretation Summary * Name: SELWYN WEISS Study Date: 10/10/2016 06:38 AM BP: 114/71 mmHg * Patient Location: C.2T\S\E217\S\1 HR: 81 * : 1950 (M/d/yyyy) Gender: Male Height: 72 in * Age: 66 yrs Ethnicity: CA Weight: 268 lb * Ordering Physician: Marek North * Referring Physician: Gabino Zaldivar * Performed By: Marleni Garces RCS * * Reason For Study: A-FIB * BSA: 2.4 m2 * -- Conclusions -- * The left ventricle is normal in size. * There is mild concentric left ventricular hypertrophy. * The left ventricular wall motion is normal. * Ejection Fraction = 50-55%. Procedure Details * A complete two-dimensional transthoracic echocardiogram was performed (2D, M-mode, Doppler and color flow Doppler). * A contrast injection of Definity was performed to improve assessment of LV function. * Contrast was injected into an intravenous site in the right arm. * One vial of Definity ultrasound contrast was diluted in normal saline to a total volume of 10 ml. A total of '2' ml of solution was administered during imaging. * Lot # [id number] of Definity utilized for procedure. * Expiration date NOV 29. * The attending nurse who injected the contrast agent was GILBERTO BURGER, RN. Left Ventricle * The left ventricle is normal in size. * There is mild concentric left ventricular hypertrophy. * Left ventricular systolic function is normal. * Ejection Fraction = 50-55%. * The left ventricular wall motion is normal. Right Ventricle * The right ventricle is normal in size and function. Atria * The left atrial size is normal. * Right atrial size is normal. * No ASD detected; PFO is not assessed. Mitral Valve * The mitral valve is normal. * There is no mitral valve stenosis. * There is trace mitral regurgitation. Tricuspid Valve * The tricuspid valve is normal. * There is no tricuspid stenosis. * There is trace tricuspid regurgitation. * Doppler findings do not suggest pulmonary hypertension. Aortic Valve * The aortic valve is trileaflet. * No hemodynamically significant valvular aortic stenosis. * No aortic regurgitation is present. Pulmonic Valve * The pulmonic valve is not well visualized. Great Vessels * The aortic root is normal size. Pericardium/Pleural * There is no pericardial effusion. Great Vessels * Normal inferior vena cava diameter and respiratory variation suggests normal central venous pressure. MMode 2D Measurements and Calculations IVSd 1.3 cm IVSs 1.6 cm LVIDd 5.4 cm LVIDs 4.4 cm LVPWd 1.4 cm LVPWs 1.3 cm IVS/LVPW 0.92 FS 17.6 % EDV(Teich) 139.1 ml ESV(Teich) 88.7 ml EF(Teich) 36.2 % EDV(cubed) 154.3 ml ESV(cubed) 86.5 ml EF(cubed) 44.0 % % IVS thick 20.9 % % LVPW thick -5.80 % LV mass(C)d 309.1 grams LV mass(C)dI 128.1 grams/m\S\2 LV mass(C)s 254.4 grams LV mass(C)sI 105.4 grams/m\S\2 SV(Teich) 50.4 ml SI(Teich) 20.9 ml/m\S\2 SV(cubed) 67.8 ml SI(cubed) 28.1 ml/m\S\2 Ao root diam 3.9 cm Ao root area 12.0 cm\S\2 LA dimension 4.0 cm LA/Ao 1.0 LVOT diam 2.1 cm LVOT area 3.6 cm\S\2 LVAd ap4 31.8 cm\S\2 LVLd ap4 7.5 cm EDV(MOD-sp4) 112.9 ml EDV(sp4-el) 114.7 ml LVAs ap4 22.3 cm\S\2 LVLs ap4 6.5 cm ESV(MOD-sp4) 65.2 ml ESV(sp4-el) 65.4 ml EF(MOD-sp4) 42.3 % EF(sp4-el) 43.0 % LVAd ap2 29.1 cm\S\2 LVLd ap2 7.8 cm EDV(MOD-sp2) 91.0 ml EDV(sp2-el) 92.5 ml LVAs ap2 19.5 cm\S\2 LVLs ap2 7.0 cm ESV(MOD-sp2) 45.3 ml ESV(sp2-el) 45.8 ml EF(MOD-sp2) 50.2 % EF(sp2-el) 50.5 % LVLd %diff 4.0 % EDV(MOD-bp) 103.6 ml LVLs %diff 7.9 % ESV(MOD-bp) 56.5 ml EF(MOD-bp) 45.4 % SV(MOD-sp4) 47.8 ml SI(MOD-sp4) 19.8 ml/m\S\2 SV(MOD-sp2) 45.7 ml SI(MOD-sp2) 18.9 ml/m\S\2 SV(MOD-bp) 47.1 ml SI(MOD-bp) 19.5 ml/m\S\2 SV(sp4-el) 49.4 ml SI(sp4-el) 20.5 ml/m\S\2 SV(sp2-el) 46.7 ml SI(sp2-el) 19.4 ml/m\S\2 Doppler Measurements and Calculations MV E max chriss 101.8 cm/sec MV P1/2t max chriss 104.8 cm/sec MV P1/2t 53.5 msec MVA(P1/2t) 4.1 cm\S\2 MV dec slope 573.7 cm/sec\S\2 MV dec time 0.24 sec Ao V2 max 77.1 cm/sec Ao max PG 2.4 mmHg Ao max PG (full) 0.68 mmHg LISHA(V,A) 3.0 cm\S\2 LISHA(V,D) 3.0 cm\S\2 LV V1 max PG 1.7 mmHg LV V1 max 65.2 cm/sec PA V2 max 57.7 cm/sec PA max PG 1.3 mmHg TR max chriss 188.3 cm/sec
[2016-10-10] MEDS ORDERED: POTASSIUM CHLORIDE 10 MEQ TABCR PO STA (10:15)
--- NOTE | 2016-10-10 10:34 | CARDIOLOGY PROGRESS NOTE ---
DATE: 10/10/2016 DATE: 10/10/2016 The patient seen and examined. Chart, medications, telemetry reviewed. SUBJECTIVE: The patient feels well this morning, continues to have atrial fibrillation with intermittent elevated heart rates. Notes no chest pain, shortness of breath, dizziness or lightheadedness. Notes no overt tachypalpitations. QT corrected this morning is 469 and tolerating increased dose of sotalol. OBJECTIVE: VITAL SIGNS: Heart rate is 90, blood pressure is 142/80. NECK: Thin. There is no jugular venous distention. There are no carotid bruits. LUNGS: Clear to auscultation. CARDIOVASCULAR EXAMINATION: Irregular, irregular. There is no S3 gallop. ABDOMEN: Soft, nontender. EXTREMITIES: Without cyanosis or clubbing. There is no peripheral edema. IMPRESSION: A 66-year-old male with paroxysmal Afib flutter with once again recurrence. Discussed findings in detail with the patient. Will recommend increasing sotalol as already done to 120 mg twice per day. We will keep n.p.o. after midnight tonight. If patient does not spontaneously convert to sinus rhythm will refer for synchronized electrocardioversion in a.m.
--- NOTE | 2016-10-10 10:47 | Progress Note ---
Internal Med Progress Note Date of Service: Oct 10, 2016. Provider Documentation: SUBJECTIVE: sitting on the chair comfortably denies chest pain no more palpitations afebrile no feeling of weakness or dizziness OBJECTIVE: Vital Signs-as noted below Exam: General-alert and oriented. Not in distress ENT-normal hearing Neck-no neck masses Lungs-cta b/l no wheezing or crackles Heart-s1 and s2 heard irregular rhythm, no murmurs Abdomen-soft bowel sounds present non tender no distension Extremities no edema no erythema Neuro-alert and oriented moves extremities Lab data as noted below. ASSESSMENT & PLAN: rapid afib sotalol dose increased by cardiology on xarelto still in a fib plan for cardioversion in am continue tele monitoring. hx of DVT and PE on xarelto DVT PROPHYLAXIS on xarelto DISPOSITION monitor in tele to be determined Vital Signs: Date Time Temp Pulse Resp B/P (MAP) Pulse Ox O2 Delivery O2 Flow Rate FiO2 10/10/16 08:00 Room Air 10/10/16 07:33 36.8 92 18 142/81 (101) 99 10/10/16 04:00 Room Air 10/10/16 03:31 36.4 70 18 114/71 (85) 99 Room Air 10/09/16 23:59 Room Air 10/09/16 23:55 36.3 82 18 101/65 (77) 98 Room Air 10/09/16 20:00 Room Air 10/09/16 17:13 36.3 70 19 125/75 100 Room Air 10/09/16 17:07 75 15 98 10/09/16 17:02 78 18 89 10/09/16 17:01 134/61 10/09/16 16:57 69 19 96 10/09/16 16:52 75 9 97 10/09/16 16:47 75 23 95 10/09/16 16:46 126/70 10/09/16 16:42 85 33 98 10/09/16 16:37 79 17 96 10/09/16 16:32 74 15 94 10/09/16 16:31 115/72 10/09/16 16:27 70 7 97 10/09/16 16:22 74 23 98 10/09/16 16:17 88 20 97 10/09/16 16:16 91/67 10/09/16 16:12 83 18 97 10/09/16 16:07 75 23 96 8/28/17 16:02 74 20 96 10/09/16 16:01 104/69 10/09/16 15:57 81 15 96 10/09/16 15:52 69 21 96 10/09/16 15:47 79 23 98 10/09/16 15:44 120 20 95/77 98 Room Air 10/09/16 15:42 95/77 10/09/16 15:33 102 36 92 10/09/16 15:29 91/62 10/09/16 15:18 86 21 97 10/09/16 15:03 91 26 97 10/09/16 15:01 88/58 10/09/16 14:59 115 10/09/16 14:47 101/84 10/09/16 14:45 98 Room Air 10/09/16 14:23 36.6 115 18 107/72 92 Room Air Lab Results: Results Past 24 Hours Test 10/09/16 14:55 10/09/16 18:25 10/09/16 19:50 10/10/16 05:24 Range/Units White Blood Count 7.04 5.30 4.8-10.8 K/uL Red Blood Count 4.53 4.14 4.7-6.1 M/uL Hemoglobin 14.0 12.4 14.0-18.0 g/dL Hematocrit 39.4 36.9 42-52 % Mean Corpuscular Volume 87.0 89.1 80-100 fL Mean Corpuscular Hemoglobin 30.9 30.0 25-34 pg Mean Corpuscular Hemoglobin Concent 35.5 33.6 32-36 g/dl Platelet Count 274 196 130-400 K/uL Mean Platelet Volume 9.8 9.8 7.4-10.4 fL Neutrophils (%) (Auto) 38.9 38.7 % Lymphocytes (%) (Auto) 48.4 46.6 % Monocytes (%) (Auto) 9.1 9.8 % Eosinophils (%) (Auto) 3.1 4.5 % Basophils (%) (Auto) 0.4 0.4 % Neutrophils # (Auto) 2.73 2.05 1.4-6.5 K/uL Lymphocytes # (Auto) 3.41 2.47 1.2-3.4 K/uL Monocytes # (Auto) 0.64 0.52 0.11-0.59 K/uL Eosinophils # (Auto) 0.22 0.24 0-0.5 K/uL Basophils # (Auto) 0.03 0.02 0-0.2 K/uL RDW Standard Deviation 42.0 43.6 36.4-46.3 fL RDW Coefficient of Variation 13.2 13.3 11.5-14.5 % Immature Granulocyte % (Auto) 0.1 0.0 % Immature Granulocyte # (Auto) 0.01 0.00 0.00-0.02 K/uL Sodium Level 140 146 136-145 mmol/L Potassium Level 4.3 3.7 3.5-5.1 mmol/L Chloride Level 107 111 98-107 mmol/L Carbon Dioxide Level 27 26 21-32 mmol/L Anion Gap 6.0 9.0 3-11 mmol/L Blood Urea Nitrogen 17 15 7-18 mg/dl Creatinine 1.20 1.00 0.60-1.40 mg/dl Est Creatinine Clear Calc Drug Dose 83.0 99.5 ml/min Estimated GFR () 73.1 91.1 Estimated GFR (Non- 63.1 78.6 BUN/Creatinine Ratio 14.4 15.2 10-20 Random Glucose 90 79 70-99 mg/dl Calcium Level 8.9 8.5 8.5-10.1 mg/dl Total Creatine Kinase 236 39-308 U/L Creatine Kinase MB 2.0 0.5-3.6 ng/ml Creatine Kinase MB Ratio 0.8 0-3.0 Troponin I < 0.015 < 0.015 < 0.015 0-0.045 ng/ml Total Bilirubin 1.9 1.4 0.2-1 mg/dl Direct Bilirubin 0.3 0-0.2 mg/dl Aspartate Amino Transf (AST/SGOT) 24 22 15-37 U/L Alanine Aminotransferase (ALT/SGPT) 33 30 12-78 U/L Alkaline Phosphatase 63 58 45-117 U/L Total Protein 7.0 6.4 6.4-8.2 gm/dl Albumin 3.3 3.0 3.4-5.0 gm/dl Globulin 3.4 2.5-4.0 gm/dl Albumin/Globulin Ratio 0.9 0.9-2
[2016-10-10 11:53] VITALS: BP 112/72; PULSE 76; TEMP 36.7; O2SAT 95
[2016-10-10 15:11] VITALS: BP 127/72; PULSE 71; TEMP 36.4; O2SAT 97
[2016-10-10 18:58] VITALS: BP 122/67; PULSE 107; TEMP 36.8; O2SAT 100
[2016-10-10 23:13] VITALS: BP 114/77; PULSE 85; TEMP 36.4; O2SAT 99
[2016-10-11 04:03] VITALS: BP 107/70; PULSE 85; TEMP 36.3; O2SAT 98
[2016-10-11 05:50] VITALS: BP 107/70; PULSE 85; TEMP 36.3; O2SAT 98
[2016-10-11 07:31] VITALS: BP 99/60; PULSE 95; TEMP 36.4; O2SAT 98
[2016-10-11] MEDS: RIVAROXABAN 20 MG TAB PO SCH (07:32)
[2016-10-11] MEDS: SOTALOL HCL 80 MG TAB PO SCH (07:32)
[2016-10-11 08:52] LABS: BUN/CREATININE RATIO 14.3 (10-20); CALCIUM 9.2 mg/dl (8.5-10.1); CREATININE 1.1 mg/dl (0.60-1.40); POTASSIUM 3.8 mmol/L (3.5-5.1)
[2016-10-11 08:54] LABS: ALB/GLOB RATIO 0.9 (0.9-2)
[2016-10-11] MEDS ORDERED: POTASSIUM CHLORIDE 10 MEQ TABCR PO STA (09:40)
--- NOTE | 2016-10-11 10:21 | CARDIOLOGY PROGRESS NOTE ---
DATE: 10/11/2016 DATE: 10/11/2016 The patient seen and examined. Chart, medications, laboratory studies and telemetry all reviewed. SUBJECTIVE: The patient is asymptomatic this morning. No difficulties or complaints overnight, remains in Afib flutter with elevated ventricular response rate. Denies any chest pain or discomfort. Notes no worsening shortness of breath. QT corrected this morning on an increased dose of sotalol 466. OBJECTIVE: VITAL SIGNS: Heart rate is 95, blood pressure is 99/60. HEAD, EYES, EARS, NOSE, AND THROAT EXAMINATION: Normocephalic, atraumatic. Nares without discharge. Throat was clear. NECK: Supple without thyromegaly, lymphadenopathy, JVD or bruit. LUNGS: Clear to auscultation. CARDIOVASCULAR EXAMINATION: Irregularly irregular. There is no S3 gallop. ABDOMEN: Soft, nontender. EXTREMITIES: Without cyanosis or clubbing. There is no peripheral edema. IMPRESSION: A 66-year-old male with a history of paroxysmal, now persistent atrial fibrillation, currently on sotalol 120 mg twice per day. PLAN: Will supplement potassium this morning. The patient has tentatively been arranged for synchronized electrical cardioversion early this afternoon. The patient is agreeable to plan. He is chronically anticoagulated with Eliquis.
[2016-10-11 11:30] VITALS: BP 93/68; PULSE 54; TEMP 36.8; O2SAT 94
[2016-10-11] MEDS ORDERED: PROPOFOL IV EMULSION 10 MG/ML 20 ML VIAL IV ONE (12:12)
[2016-10-11] MEDS ORDERED: LIDOCAINE HCL 2% 2 ML VIAL (20MG/ML) ONE (12:12)
[2016-10-11] MEDS ORDERED: LIDOCAINE HCL 1% 20 ML VIAL ONE (12:12)
--- NOTE | 2016-10-11 14:00 | CARDIOLOGY PROGRESS NOTE ---
DATE: 10/11/2016 DATE: 10/11/2016 SUBJECTIVE: The patient seen after spontaneous conversion to sinus rhythm and feels well. Notes no dizziness or lightheadedness. Was unaware of conversion. Synchronized electrical cardioversion was canceled. EKG done demonstrates sinus bradycardia, rate of 53. QT corrected at 465. IMPRESSION: A 66-year-old male with paroxysmal Afib flutter with spontaneous conversion to sinus rhythm on higher dose of sotalol. RECOMMENDATIONS: The patient may be discharged to home today on current therapies including sotalol 120 mg twice per day and Eliquis chronically. He has anticipated appointments with myself. Arrangements were made for EP followup as well.
[2016-10-11] MEDS ORDERED: SOTA120T6 PO (14:59)
--- NOTE | 2016-10-11 15:00 | Discharge Instructions ---
Discharge Instructions Date of Service Oct 11, 2016. Admission Reason for Admission: AFIB Discharge Discharge Diagnosis / Problem: rapid afib Discharge Goals Goal(s): Decrease discomfort, Improve function Activity Recommendations Activity Limitations: resume your previous activity . Instructions / Follow-Up Instructions / Follow-Up FOLLOWUP WITH FAMILY DOCTOR ON Oct AT 8:45AM FOLLOWUP WITH CARDIOLOGY SCHEDULED. Current Hospital Diet Patient's current hospital diet: AHA Diet (Heart Healthy) Discharge Diet Recommended Diet: AHA Diet (Heart Healthy) Pending Studies Studies pending at discharge: no Medical Emergencies . Who to Call and When: Medical Emergencies: If at any time you feel your situation is an emergency, please call 911 immediately. . Non-Emergent Contact Non-Emergency issues call your: Primary Care Provider . . "Provider Documentation" section prepared by Brenton Camacho. . VTE Core Measure Inpt VTE Proph given/why not?: Other Anticoagulation (ON ELIQUIS)
[2016-10-11 15:03] VITALS: BP 107/73; PULSE 59; TEMP 36.8; O2SAT 99
[2016-10-11 15:18] VITALS: BP 107/73; PULSE 59; TEMP 36.8; O2SAT 99
--- NOTE | 2016-10-11 15:34 | Progress Note ---
Internal Med Progress Note Date of Service: Oct 11, 2016. Provider Documentation: SUBJECTIVE: sitting on the chair comfortably no sob or chest pain converted harvinder sinus rhythm and ok for discharge OBJECTIVE: Vital Signs-as noted below Exam: General-alert and oriented. Not in distress ENT-normal hearing Neck-no neck masses Lungs-cta b/l no wheezing or crackles Heart-s1 and s2 heard regular rhythm, no murmurs Abdomen-soft bowel sounds present non tender no distension Extremities no edema no erythema Neuro-alert and oriented moves extremities Lab data as noted below. ASSESSMENT & PLAN: rapid afib sotalol dose increased by cardiology on xarelto was still in a fib plan for cardioversion today but patient spontaneously converted to sinus rhythm to d/c home to f/u with pcp and cardiology hx of DVT and PE on xarelto discharged home Vital Signs: Date Time Temp Pulse Resp B/P (MAP) Pulse Ox O2 Delivery O2 Flow Rate FiO2 10/11/16 15:18 36.8 59 18 99 Room Air 10/11/16 15:03 36.8 59 18 107/73 (84) 99 Room Air 10/11/16 12:00 Room Air 10/11/16 11:30 36.8 54 18 93/68 (76) 94 10/11/16 08:00 Room Air 10/11/16 07:31 36.4 95 99/60 (73) 98 Room Air 10/11/16 05:50 36.3 85 18 107/70 98 Room Air 10/11/16 04:03 36.3 85 18 107/70 (82) 98 Room Air 10/11/16 04:00 Room Air 10/10/16 23:59 Room Air 10/10/16 23:13 36.4 85 18 114/77 (89) 99 Room Air 10/10/16 20:00 Room Air 10/10/16 18:58 36.8 107 18 122/67 (85) 100 Room Air 10/10/16 16:00 Room Air Lab Results: Results Past 24 Hours Test 10/11/16 08:07 Range/Units Sodium Level 142 136-145 mmol/L Potassium Level 3.8 3.5-5.1 mmol/L Chloride Level 109 98-107 mmol/L Carbon Dioxide Level 27 21-32 mmol/L Anion Gap 6.0 3-11 mmol/L Blood Urea Nitrogen 16 7-18 mg/dl Creatinine 1.10 0.60-1.40 mg/dl Est Creatinine Clear Calc Drug Dose 90.4 ml/min Estimated GFR () 81.2 Estimated GFR (Non- 70.1 BUN/Creatinine Ratio 14.3 10-20 Random Glucose 93 70-99 mg/dl Calcium Level 9.2 8.5-10.1 mg/dl Total Bilirubin 1.2 0.2-1 mg/dl Aspartate Amino Transf (AST/SGOT) 26 15-37 U/L Alanine Aminotransferase (ALT/SGPT) 33 12-78 U/L Alkaline Phosphatase 63 45-117 U/L Total Protein 7.4 6.4-8.2 gm/dl Albumin 3.5 3.4-5.0 gm/dl Globulin 3.9 2.5-4.0 gm/dl Albumin/Globulin Ratio 0.9 0.9-2
--- NOTE | 2016-10-11 18:39 | Discharge Summary ---
Discharge Summary Date of Service Oct 11, 2016. Discharge Summary Admission Date: Oct 09, 2016 at 16:52 Discharge Date: Oct 11, 2016 Discharge Disposition: Home Principal Diagnosis: RAPID AFIB Secondary Diagnoses/Problems: (1) DVT (deep venous thrombosis) Permanent Comment: provoked, completed Coumadin therapy Status: Chronic (2) Dyslipidemia Status: Chronic (3) PAF (paroxysmal atrial fibrillation) Status: Chronic (4) Pulmonary embolism Permanent Comment: provoked, completed Coumadin therapy Status: Chronic Procedures: ECHO: The left ventricle is normal in size. * There is mild concentric left ventricular hypertrophy. * The left ventricular wall motion is normal. * Ejection Fraction = 50-55%. Consultations: CARDIOLOGY Medication Reconciliation New Medications: Sotalol Hcl (Afib/Afl) (Sotalol Hcl (Af)) 120 Mg Tab 120 MG PO BID, #60 2 Refills Continued Medications: Rivaroxaban (Xarelto) 20 Mg Tab 20 MG PO DAILY for 30 Days, #30 TABS 2 Refills Discontinued Medications: Sotalol HCl (Sotalol HCl) 80 Mg Tab 80 MG PO BID for 30 Days, #60 TAB 3 Refills Admission Information HPI (per Admitting provider): This is a 66 year old M with PMH recently diagnosed atrial fibrillation in August 2016, has been on anticoagulation with Xarelto, originally rate controlled with metoprolol, was then evaluated for cardioversion, and then place on oral sotalol. Patient was walking from house to outside this morning when feeling short of breath. Presented to the ED with afib RVR with heart rate above 110. Patient then started on diltiazem drip. Patient seen and examined in the ED breathing comfortably on room air able to move with dyspnea to cooperate with physical exam. Physical Exam (per Admitting): General Appearance: no apparent distress Head: normocephalic, atraumatic Eyes: normal inspection, PERRL, EOMI, sclerae normal ENT: hearing grossly normal, pharynx normal Neck: supple, no adenopathy, thyroid normal, no JVD, no carotid bruits, trachea midline Respiratory/Chest: chest non-tender, lungs clear, normal breath sounds, no respiratory distress, no accessory muscle use Cardiovascular: no edema, + tachycardia, + irregularly irregular Abdomen/GI: normal bowel sounds, non tender, soft, no pulsatile mass Back: normal inspection, no muscle spasm, normal range of motion Extremities/Musculoskelatal: normal inspection, no calf tenderness, normal capillary refill, no pedal edema, normal range of motion Neurologic/Psych: shoe dyer II-XII nml as tested, no motor/sensory deficits, alert , oriented x 3 Skin: normal color, warm/dry, no rash Hospital Course rapid afib sotalol dose increased by cardiology on xarelto was still in a fib plan for cardioversion today but patient spontaneously converted to sinus rhythm to d/c home to f/u with pcp and cardiology hx of DVT and PE on xarelto discharged home Total time spent on discharge = 35MINUTES This includes examination of the patient, discharge planning, medication reconciliation, and communication with other providers. Discharge Instructions Discharge Instructions Date of Service Oct 11, 2016. Admission Reason for Admission: AFIB Discharge Discharge Diagnosis / Problem: rapid afib Discharge Goals Goal(s): Decrease discomfort, Improve function Activity Recommendations Activity Limitations: resume your previous activity . Instructions / Follow-Up Instructions / Follow-Up FOLLOWUP WITH FAMILY DOCTOR ON Oct AT 8:45AM FOLLOWUP WITH CARDIOLOGY SCHEDULED. Current Hospital Diet Patient's current hospital diet: AHA Diet (Heart Healthy) Discharge Diet Recommended Diet: AHA Diet (Heart Healthy) Pending Studies Studies pending at discharge: no Medical Emergencies . Who to Call and When: Medical Emergencies: If at any time you feel your situation is an emergency, please call 911 immediately. . Non-Emergent Contact Non-Emergency issues call your: Primary Care Provider . . "Provider Documentation" section prepared by Brenton Camacho. . VTE Core Measure Inpt VTE Proph given/why not?: Other Anticoagulation (ON ELIQUIS)
== END 2016-10-11 15:44 | disposition home or self-care (01) | DRG 310 ==
LOC: C.EDB 14:20 → C.2T 16:52 → ENRESERV 17:06
PROVIDERS: ADMIT Hospitalist; ATTEND Internal Medicine
DX: I48.92 Unspecified atrial flutter (principal); I48.0 Paroxysmal atrial fibrillation; Z86.718 Personal history of other venous thrombosis and embolism; Z86.711 Personal history of pulmonary embolism; Z96.653 Presence of artificial knee joint, bilateral; Z79.01 Long term (current) use of anticoagulants; Z79.899 Other long term (current) drug therapy

== ENCOUNTER 2016-10-17 10:09 | Emergency (ER) | payer OTHER ==
[~2016-10-17] VITALS: Ht 182.9 cm; Wt 121.0 kg
[~2016-10-17 10:09] MED LIST changes: -BTP80 PO; +SOTA120T6 PO
[2016-10-17 10:13] VITALS: TEMP 36.8; Ht 182.9 cm; Wt 121.0 kg
[2016-10-17 11:29] LABS: BASO % 0.5 %; BASO ABS # 0.03 K/uL (0-0.2); COMPLETE YES; EOS % 2.6 %; HEMATOCRIT 37.1 % (42-52); IG% 0.3 %; LYMPH % 35.7 %; LYMPH ABS # 2.34 K/uL (1.2-3.4); MEAN CELL VOLUME 87.9 fL (80-100); MEAN CORPUSCULAR HEMOGLOBIN 30.6 pg (25-34); MEAN CORPUSCULAR HGB CONC 34.8 g/dl (32-36); MEAN PLATELET VOLUME 10.2 fL (7.4-10.4); MONO % 7.3 %; NEUT % 53.6 %; PLATELET COUNT 240 K/uL (130-400); RED BLOOD COUNT 4.22 M/uL (4.7-6.1); WHITE BLOOD COUNT 6.56 K/uL (4.8-10.8)
--- NOTE | 2016-10-17 11:30 | DIAGNOSTIC IMAGING REPORT ---
CHEST ONE VIEW PORTABLE CLINICAL HISTORY: Chest pain. COMPARISON STUDY: Chest CT September 02, 2016 and chest radiograph October 01, 2016. FINDINGS: Lung volumes are normal. There is no pneumothorax or pleural effusion. There is no evidence of pulmonary edema. Cardiomegaly is unchanged. No consolidation is identified. The appearance of the chest is unchanged. IMPRESSION: No acute cardiopulmonary findings. Stable cardiomegaly. Electronically signed by: Donald Sr M.D. 10/17/2016 11:28 AM Dictated Date/Time: 10/17/2016 11:27 AM
[2016-10-17 11:36] LABS: BLOOD UREA NITROGEN 20 mg/dl (7-18); BUN/CREATININE RATIO 18.4 (10-20); CALCIUM 8.8 mg/dl (8.5-10.1); CARBON DIOXIDE 25 mmol/L (21-32); CHLORIDE 109 mmol/L (98-107); GLUCOSE 87 mg/dl (70-99); POTASSIUM 4.1 mmol/L (3.5-5.1); SODIUM 141 mmol/L (136-145)
[2016-10-17 11:41] LABS: CKMB/CK RATIO 0.8 (0-3.0)
[2016-10-17 14:19] VITALS: PULSE 54; O2SAT 97
[2016-10-17 14:31] VITALS: BP 110/67
--- NOTE | 2016-10-17 16:49 | EMERGENCY ROOM VISIT NOTE ---
History Report prepared by Chacorta: Rolanda Caban Under the Supervision of: Dr. Hamzah Wong D.O. First contact with patient: 10:46 Chief Complaint: IRREGULAR HEARTBEAT Stated Complaint: IRREGULAR HEARTBEAT Nursing Triage Summary: Pt states hx afib and this am approx 0815 he started getting sweaty and BP was and HR were "all over the place" History of Present Illness The patient is a 66 year old male who presents to the Emergency Room with complaints of an irregular heartbeat beginning at 8:15am today. The patient has a history of atrial fibrillation which has been going on for the last 5-6 weeks. This morning he was diaphoretic, dizzy, and lightheaded. He felt like he might be in a-fib. He checked his blood pressure and pulse at home and they were both irregular. The patient called his PCP's office and was advised to come to the ED for further evaluation. Pt denies headache, change in vision, fevers, chest pain, shortness of breath, nausea, vomiting, diarrhea, pain with urination, and melena. He states that his symptoms have completely resolved and he is feeling back to normal at this time. The patient is currently Xarelto. He notes these symptoms are consistent with the previous episodes of A. fib that he has had over the course of the past month. Source of History: patient Onset: this morning Position: chest Quality: other (irregular) Timing: resolved Modifying Factors (Relieving): other (time) Associated Symptoms: + diaphoresis, No fevers, No headache, No chest pain, No SOB, No nausea, No vomiting, No melena, No diarrhea, No urinary symptoms Note: Pt was dizzy and lightheaded. Review of Systems See HPI for pertinent positives & negatives. A total of 10 systems reviewed and were otherwise negative. Past Medical & Surgical Medical Problems: (1) DVT (deep venous thrombosis) (2) Dyslipidemia (3) PAF (paroxysmal atrial fibrillation) (4) Pulmonary embolism Surgical Problems: (1) H/O cervical discectomy (2) History of tonsillectomy and adenoidectomy (3) Status post total knee replacement, left (4) Status post total knee replacement, right Family History FH: heart attack FATHER (fatal [facility] at age 58) Social History Smoking Status: Never Smoker Alcohol Use: none Drug Use: none Marital Status: Housing Status: lives with family Current/Historical Medications Scheduled Rivaroxaban (Xarelto), 20 MG PO DAILY Sotalol Hcl (Afib/Afl) (Sotalol Hcl (Af)), 120 MG PO BID Allergies Coded Allergies: No Known Allergies (Unverified , 10/09/16) Physical Exam Vital Signs Date Time Temp Pulse Resp B/P (MAP) Pulse Ox O2 Delivery O2 Flow Rate FiO2 10/17/16 14:31 110/67 10/17/16 14:19 54 15 97 10/17/16 14:04 49 10 97 10/17/16 14:02 49 10/17/16 14:01 108/68 10/17/16 13:49 49 11 96 10/17/16 13:34 51 14 96 10/17/16 13:31 107/57 10/17/16 13:19 52 7 97 10/17/16 13:04 52 13 97 10/17/16 13:01 109/59 10/17/16 12:49 53 17 97 10/17/16 12:44 54 18 96 10/17/16 12:31 111/73 10/17/16 12:29 53 18 96 10/17/16 12:14 52 16 96 10/17/16 12:01 117/73 10/17/16 11:59 51 13 94 10/17/16 11:44 54 20 93 10/17/16 11:39 54 13 95 10/17/16 11:34 53 6 96 10/17/16 11:31 95/47 10/17/16 11:29 55 9 95 10/17/16 11:24 55 13 96 10/17/16 11:19 57 15 96 10/17/16 11:14 57 13 96 10/17/16 11:09 58 9 97 10/17/16 11:04 60 21 98 10/17/16 11:01 106/65 10/17/16 10:59 59 27 96 10/17/16 10:54 57 20 95 10/17/16 10:53 94/59 10/17/16 10:49 60 16 10/17/16 10:46 57 10/17/16 10:16 95 Room Air 10/17/16 10:13 36.8 62 16 120/57 96 Room Air Physical Exam GENERAL: alert, sitting up in bed, well appearing, well nourished, no distress, non-toxic EYE EXAM: normal conjunctiva OROPHARYNX: no exudate, no erythema, lips, buccal mucosa, and tongue normal and mucous membranes are moist NECK: supple, no nuchal rigidity, no adenopathy, non-tender LUNGS: Clear to auscultation. Normal chest wall mechanics HEART: no murmurs, S1 normal and S2 normal ABDOMEN: abdomen soft, non-tender, normo-active bowel sounds, no masses, no rebound or guarding. BACK: Back is symmetrical on inspection and there is no deformity, no midline tenderness, no CVA tenderness. SKIN: no rashes and no bruising UPPER EXTREMITIES: upper extremities are grossly normal. LOWER EXTREMITIES: Mild pitting edema bilaterally. NEURO EXAM: Normal sensorium, cranial nerves II-XII grossly intact, normal speech, no gross weakness of arms, no gross weakness of legs. Medical Decision & Procedures ER Provider Diagnostic Interpretation: Radiology results as stated below per my review and the radiologist's interpretation: CHEST ONE VIEW PORTABLE CLINICAL HISTORY: Chest pain. COMPARISON STUDY: Chest CT September 02, 2016 and chest radiograph October 01, 2016. FINDINGS: Lung volumes are normal. There is no pneumothorax or pleural effusion. There is no evidence of pulmonary edema. Cardiomegaly is unchanged. No consolidation is identified. The appearance of the chest is unchanged. IMPRESSION: No acute cardiopulmonary findings. Stable cardiomegaly. Electronically signed by: Donald Sr M.D. 10/17/2016 11:28 AM Dictated Date/Time: 10/17/2016 11:27 AM Laboratory Results 10/17/16 10:50 Red Blood Count 4.22, Mean Corpuscular Volume 87.9, Mean Corpuscular Hemoglobin 30.6, Mean Corpuscular Hemoglobin Concent 34.8, Mean Platelet Volume 10.2, Neutrophils (%) (Auto) 53.6, Lymphocytes (%) (Auto) 35.7, Monocytes (%) (Auto) 7.3, Eosinophils (%) (Auto) 2.6, Basophils (%) (Auto) 0.5, Neutrophils # (Auto) 3.52, Lymphocytes # (Auto) 2.34, Monocytes # (Auto) 0.48, Eosinophils # (Auto) 0.17, Basophils # (Auto) 0.03 10/17/16 10:50 Test 10/17/16 10:50 10/17/16 12:48 White Blood Count 6.56 K/uL (4.8-10.8) Red Blood Count 4.22 M/uL (4.7-6.1) Hemoglobin 12.9 g/dL (14.0-18.0) Hematocrit 37.1 % (42-52) Mean Corpuscular Volume 87.9 fL (80-100) Mean Corpuscular Hemoglobin 30.6 pg (25-34) Mean Corpuscular Hemoglobin Concent 34.8 g/dl (32-36) Platelet Count 240 K/uL (130-400) Mean Platelet Volume 10.2 fL (7.4-10.4) Neutrophils (%) (Auto) 53.6 % Lymphocytes (%) (Auto) 35.7 % Monocytes (%) (Auto) 7.3 % Eosinophils (%) (Auto) 2.6 % Basophils (%) (Auto) 0.5 % Neutrophils # (Auto) 3.52 K/uL (1.4-6.5) Lymphocytes # (Auto) 2.34 K/uL (1.2-3.4) Monocytes # (Auto) 0.48 K/uL (0.11-0.59) Eosinophils # (Auto) 0.17 K/uL (0-0.5) Basophils # (Auto) 0.03 K/uL (0-0.2) RDW Standard Deviation 42.6 fL (36.4-46.3) RDW Coefficient of Variation 13.4 % (11.5-14.5) Immature Granulocyte % (Auto) 0.3 % Immature Granulocyte # (Auto) 0.02 K/uL (0.00-0.02) Anion Gap 7.0 mmol/L (3-11) Est Creatinine Clear Calc Drug Dose 89.9 ml/min Estimated GFR () 81.2 Estimated GFR (Non- 70.1 BUN/Creatinine Ratio 18.4 (10-20) Calcium Level 8.8 mg/dl (8.5-10.1) Total Creatine Kinase 155 U/L (39-308) Creatine Kinase MB 1.3 ng/ml (0.5-3.6) Creatine Kinase MB Ratio 0.8 (0-3.0) Troponin I < 0.015 ng/ml (0-0.045) Laboratory results per my review. ECG Indication: palpitations Rate (beats per minute): 55 Rhythm: sinus bradycardia Findings: no ectopy, other (normal axis) Comparison ECG Date: earlier today upon arrival in ED Change: Previous ECG showed a-fib with RVR at 119, normal axis. ED Course ED COURSE: Vital signs were reviewed and showed bradycardic and hypotensive. The patients medical record was reviewed The above diagnostic studies were performed and reviewed. ED treatments and interventions as stated above. 1046: The patient was evaluated in room C5. A complete history and physical examination was performed. 1233: I reassessed the patient and he is doing well. 1419: Upon reevaluation, the patient is feeling better and resting comfortably. I discussed my findings with the patient and he understands and agrees with the treatment plan. Based on the patients age, coexisting illnesses, exam and lab findings the decision to treat as an outpatient was made. The patient remained stable while under my care. The patient appeared well at the time of discharge. Medical Decision Differential diagnoses includes but is not limited to acute coronary syndrome, myocardial infarction, pericarditis, pulmonary embolus, aortic dissection, pneumonia, pneumothorax, musculoskeletal, shingles, esophageal. Patient is a 66-year-old male presents to ER on oral Xa inhibitor for A. fib with RVR. His initial EKG did show that he was in a rate of 120s. Upon evaluation and repeat EKG his heart rate converted into a normal sinus rhythm. CBC on BMP was unremarkable. Troponins were negative 2. EKG was unremarkable/ no ischemic changes. Chest x-ray was unremarkable. Patient felt active baseline. He was updated following his repeat troponin and discharge follow-up with PCP. Discussed with Pt concerning signs and symptoms to watch out for. Pt was instructed to follow up with their PCP and discussed with the patient their option to return to the ED at anytime for persistent or worsening symptoms. The appropriate anticipatory guidance and out-patient management, including indications for return to the emergency department, were explained at length to the patient and understood. Medication Reconcilliation Current Medication List: was personally reviewed by me Blood Pressure Screening Patient's blood pressure: Low blood pressure Impression Primary Impression: Paroxysmal a-fib Additional Impression: Afib Scribe Attestation The scribe's documentation has been prepared under my direction and personally reviewed by me in its entirety. I confirm that the note above accurately reflects all work, treatment, procedures, and medical decision making performed by me. Departure Information Dispostion Home / Self-Care Referrals Aldo Castro D.O. (PCP) Forms HOME CARE DOCUMENTATION FORM, IMPORTANT VISIT INFORMATION Patient Instructions ED Afib, My [facility] Additional Instructions Please follow up with your primary care doctor or if you are a student, [facility] with in the next 24 hours. Any worsening of your symptoms, please return to the ED immediately. This includes any fevers greater than 100.4, worsening pain, chest pain, shortness breath, persistent nausea, vomiting, unable to eat or drink, or any other concerning signs or symptoms from your standpoint. Problem Qualifiers Additional Impression: Afib Atrial fibrillation type: unspecified Qualified Codes: I48.91 - Unspecified atrial fibrillation
== END 2016-10-17 15:04 | disposition home or self-care (01) ==
LOC: C.EDB 10:11 → C.EDC 15:04
DX: I48.0 Paroxysmal atrial fibrillation (principal); Z79.01 Long term (current) use of anticoagulants; E78.5 Hyperlipidemia, unspecified; Z86.718 Personal history of other venous thrombosis and embolism; Z86.711 Personal history of pulmonary embolism; Z96.653 Presence of artificial knee joint, bilateral; Z82.49 Family history of ischemic heart disease and other diseases of the circulatory system; Z79.899 Other long term (current) drug therapy

== ENCOUNTER → 2016-10-18 | Outpatient (CLI) | payer OTHER ==
--- NOTE | 2016-10-19 06:01 | PAP/PSG TECHNICIAN REPORT ---
[facility] Propulsion Generator Repairer Polysomnogram Report Study name: None Report date: 10/19/2016 Study date: 10/18/2016 Referring Physician: Martha Gong M.D. Name: SELWYN WEISS Sage Interpreting Physician: Christina Gong M.D. Date of : 1950 Propulsion Generator Repairer: Adina Langford [facility]. Sex: Male Age: 66 StudyType: PSG Weight: 265 lbs Height: 66 years, Height 6' 0" Neck Circum: 19 inches BMI: 35.94 Medications: Xarelto 20 mg daily, Sotalol 120 mg twice daily Patient History 66 yr. old male here for a possible split night sleep study in room 6. Patient was hospitalized late August for A-fib. Since August patient has lost 40 pounds and is working towards losing more. Patient complains of snoring, and witnessed apneas. Patients [place] Sleepiness Scale Score is 5/24. Parameters Monitored NPSG: E1-M2, E2-M1, Fp1-M2, Fp2-M1, F3-M2, F4-M2, F4-M1, C3-M2, C4-M2, C4-M1, O1-M2, O2-M2, O2-M1, T3-M2, T4-M1, P3-M2, P4-M1, CHIN1, CHIN2, HR, EKG, Legs, PFLOW, SNOR, FLOW, CFLOW, Tidal Volume, THOR, ABDO, SpO2, PLTH, CPRESS, ETCO2 Wave, ETCO2, pH Sleep Architecture Sleep Stages Time at Lights Off 10:57:56 PM STAGES Time (min.) TST (%) Time at Lights On 5:47:26 AM Wake 70.0 -- Total Recording Time (TRT) 409.50 min. N1 35.5 10 Total Sleep Period (TSP) 398.5 min. N2 220.0 65 Total Sleep Time (TST) 339.5min. N3 38.0 11 Awake Time 70.0 min. REM 46.0 14 Wake after Sleep Onset 59.0 min. Sleep Efficiency (SE) 83 % Sleep Onset Latency (MICHELLE) 11.0 min. Number of Stage 1 Shifts None Awakenings 23 Stage Changes 98 Number of REM periods 8 REM 46.0 14 REM Latency 83.5 min. NREM 293.5 86 Body Position Analysis Supine Right Left Side Prone Vertical Total Sleep Time (min.) 17.6 193.5 135.5 329.00 0.0 0.0 Total Sleep Time (%) 3% 57% 40% 97 0% N/A% Total Sleep Time REM (min.) 1.0 45.0 0.0 None 0.0 0.0 Total Sleep Time NREM (min.) 9.5 148.5 135.5 None 0.0 0.0 Intermittent Wake (min.) 7.1 21.2 41.7 None 0.0 0.0 Total Sleep Period (%) 3% None None None None None Arousals Myoclonus (PLM) * Events Count Index Events Count Index Spontaneous 7 1 Events Awake (PLMW) 46 39.4 Respiratory 2 0.4 Events Asleep w/ Arousal (PLMA) 24 4.2 PLM 23 4 Events Asleep w/o Arousal (PLMS) 30 5.3 Snoring 8 1 Total Asleep 54 9.5 Total 40 7 Total 100 15 Respiratory Analysis * CA OA MA CH H RERA Total Count 3 10 3 0 50 2 66 Index 0.5 1.8 0.5 0 8.8 0 12.0 Mean Duration 22.4 22.7 25.9 0.00 25.2 27.9 24.8 Longest Duration 27.4 30.8 30.5 0.00 30.5 28.7 52.9 Respiratory Event Summary Total Supine ~Supine Right Left Prone REM NREM Apneas Count 16 11 5 0 5 N/A 1 15 Index 2.8 63 1 0.0 2.2 N/A 1 3 Hypopneas (4% Desat) Count 50 4 46 26 20 N/A 14 36 Index 8.8 22.9 8 8.1 8.9 N/A 18.3 7.4 Apneas & All Hypopneas Count 66 15 51 26 25 N/A 15 51 Index 11.7 86 9 8 11 N/A 19.6 10.4 Respiratory Events (Field Return Repairer+All Hyp+RERA) Count 66 15 53 26 27 N/A 15 51 Index 12.0 86 10 8.1 12.0 N/A 19.6 10.8 Respiratory Related Arousal Count 2 15 1 0 1 N/A 1 1 Index 0.4 6 0 0 0 N/A 1 0 Snoring Analysis Supine Right Left Prone REM NREM Total Snore duration 5.2 min Snores count 1 23 199 N/A 13 210 223 Snore mean duration 1.4 Sec Snores index 6 7 88 N/A 17.0 42.9 39.4 TST with snoring (%) 1.5% Desaturation Event Summary: Minimum %SpO2 Event Count Mean/Min/Max Duration(sec.) Desaturation Index % Time In Bed > 90 82 30.0 / 8.3 / 60.0 14.4 84.8 86 - 90 9 23.3 / 13.0 / 55.0 8.9 15.0 81 - 85 0 N/A 0.0 0.2 76 - 80 0 N/A 0.0 0.0 71 - 75 0 N/A 0.0 0.0 66 - 70 0 N/A 0.0 0.0 61 - 65 0 N/A 0.0 0.0 56 - 60 0 N/A 0.0 0.0 51 - 55 0 N/A 0.0 0.0 < 50 0 N/A 0.0 0.0 Total REM NREM Awake <50% 0.0 min. 0.0 min. 0.0 min. 0.0 min. 51 - 60% 0.0 min. 0.0 min. 0.0 min. 0.0 min. 61 - 70% 0.0 min. 0.0 min. 0.0 min. 0.0 min. 71 - 80% 0.0 min. 0.0 min. 0.0 min. 0.0 min. 81 - 90% 61.0 min. 14.5 min. 38.2 min. 8.3 min. 91 - 100% 340.8 min. 31.5 min. 255.3 min. 53.9 min. Average 92 92 92 93 Minimum SpO2 81 86 86 81 Desaturation Event Index 12.3 18.3 9.8 21.4 # Desat. Events below 89% 24 7 13 4 Time(%) with Saturation below 89% 4.4 2.0 1.8 0.6 Time(min.) with Saturation below 89% 17.6 8.2 7.1 2.4 Time (mins) REM (mins) NREM (mins) % of TST SpO2 Below 90% 45 13 N32 8.0 SpO2 Below 88% 10 0 0 1 Heart Rate Analysis Min (bpm) Max (bpm) Average (bpm) Awake 44 122 52 NREM 44 60 47 REM 45 59 50 Overall 44 60 48 Supplemental O2 Values Minimum O2 level: None Value Start Time End Time Propulsion Generator Repairer Comments slept in the right, left, and supine positions. No cardiac arrhythmia or PLMs noted. No bruxism noted. Snoring was noted and scored as a 2 on a scale of 0 through 5. (0=no snoring, 5=snoring loud enough to be heard through a closed door or down the ponce way) awoke to use the restroom once during the night. stated, that was a normal night, at home I get up more to use the bathroom. The final report will be interpreted and signed by a sleep physician. The completed physician report will then be placed in the patient medical record. Therapy (cm H2O) 0 TIB (min.) 409.5 TST (min.) 339.5 Sleep Onset (min.) 11.0 REM Onset From Sleep (min.) 83.5 Sleep Efficiency % 83 Wakefulness (%) 17 Wakefulness (min.) 70.0 NREM 1 (%) 10 NREM 1 (min.) 35.5 NREM 2 (%) 65 NREM 2 (min.) 220.0 NREM 3 (%) 11 NREM 3 (min.) 38.0 REM (%) 14 REM (min.) 46.0 # Arousals 40 Arousal Index 7 # Snore 223 Snore Index 39.4 AHI 11.7 AHI Supine 86 AHI Non-Supine 9 NREM AHI 10.4 REM AHI 19.6 RDI 12.0 # Obstructive Apnea 10 # Central Apnea 3 # Mixed Apnea 3 # Hypopneas 50 RERAs 2 Total Respiratory Events 71 Time Below SpO2 89% (min.) 15.3 Mean NREM SpO2 (%) 92 Mean REM SpO2 (%) 92 Mean Sleep SpO2 (%) 92 Min NREM SpO2 (%) 86 Min REM SpO2 (%) 86 Position Supine (min.) 17.6 Position Non-supine (min.) 329.0 LM Index Sleep 9.5 LM Index NREM 8.0 LM Index REM 19.6 Mean Heart Rate (bpm) 48 Min Heart Rate (bpm) 44
--- NOTE | 2016-10-27 16:45 | POLYSOMNOGRAPH REPORT ---
REFERRING PERSON: Dr. Horacio Gong. PLASTIC DUPLICATOR: Adina Langford. Mr. Shah is a 66-year-old male sent for a possible split night sleep study. He was hospitalized in late August with atrial fibrillation. Since then, he lost 40 pounds and is working to losing more. He does snoring and has had witnessed apneas. His [place] Sleepiness Scale score on the evening of this study is 5. BMI is 35.94. Following the technical and digital specifications of the [place] [employer] (AASM) a standard diagnostic polysomnogram was performed monitoring EEG, EOG, EMG (chin and leg deviations), oxygen saturation, body position, digital video, respiratory effort and airflow. The sleep Stage and event scoring was based on the AASM Manual for the Scoring of Sleep and Associated Events 2007 edition. Apneas are defined as a drop in the peak thermal sensor excursion by >90% of baseline for at least 10 seconds. Hypopneas were scored using the 4% oxygen desaturation rule (4A-[employer]ic[employer]) and a decrease in the nasal pressure excursions by >30% of baseline for at least 10 seconds. Respiratory effort-related arousal (RERA's) is defined as a sequence of breaths lasting at least 10 seconds characterized by increasing respiratory effort or flattening of the nasal pressure waveform leading to an arousal from sleep when the sequence of breaths does not meet criteria for an apnea or hypopnea. Apnea Hypopnea index (AHI) is defined as the number of apneas and hypopneas occurring in an hour of sleep. Respiratory disturbance index (RDI) is defined as the number of apneas, hypopneas, and RERA's occurring in an hour of sleep. Mr. Shah's total sleep period time was 398.5 minutes. Total sleep time was 339.5 minutes. Sleep efficiency was 83%. Latency to sleep onset was 11 minutes. Wake after sleep onset was 59 minutes. Total non-REM sleep time was 293.5 minutes. He spent 10% of that time in N1 sleep, 65% in N2 sleep and 11% in N3 sleep. REM latency was 83.5 minutes. Total REM sleep time was 46 minutes or 14% of total sleep time. There were 40 cortical arousals from sleep. Seven of these arousals were spontaneous, 2 were due to respiratory events, 23 due to periodic limb movements of sleep and 8 were due to snoring. There were 54 periodic limb movements noted on this test. Limb movement index was 9.5. Limb movement with arousal index was 4.2. During this sleep study, Mr. Shah had 3 central apneas, 10 obstructive apneas and 3 mixed apnea. Additionally, there were 50 hypopneas. Apnea/hypopnea index was 11.7 consistent with mild sleep apnea. Supine AHI was 86, non-supine AHI was 9. REM AHI was 19.6. There were 223 snoring events recorded on this test. Total sleep time with snoring was 1.5%. Mean saturation was 92% with desaturations to 81%. Saturations were less than 89% for 17.6 minutes of recorded time. This is consistent with mild nocturnal hypoxemia. There was no cardiac ectopy noted on this study. Heart rates ranged from a low of 44 beats per minute to a high of 60 beats per minute during sleep. IMPRESSION AND PLAN: Mr. Shah is a 66-year-old male with evidence of mild sleep apnea and mild nocturnal hypoxemia on this sleep study. 1. Given this patient's age and comorbid medical conditions, I would recommend that this patient be started on CPAP therapy. He should return to the sleep lab for a full night titration and then based on those results be started on equipment at home. A download from his machine can be reviewed in 1 month both to check compliance as well as apnea-hypopnea index and further pressure adjustments can occur at that time. Alternatively, this patient could be started on auto titrating CPAP at home with pressures of 5-15 cm. A download can be reviewed in 1 month at which point he could be set to optimal pressure. Given the degree of hypoxemia noted on this study would likely resolves with CPAP alone. 2. Should this patient be unwilling or unable to tolerate CPAP therapy, he should be referred to ear, nose and throat or oral surgery/dental medicine (if appropriate) to discuss alternative treatments for sleep disordered breathing.
== END | disposition home or self-care (01) ==
LOC: C.NEUR 20:00
PROVIDERS: ATTEND Family Medicine
DX: G47.33 Obstructive sleep apnea (adult) (pediatric) (principal); R06.83 Snoring

== ENCOUNTER 2016-12-13 10:02 | Emergency (ER) | payer OTHER ==
[~2016-12-13] VITALS: Ht 182.9 cm; Wt 118.0 kg
[2016-12-13 10:13] VITALS: TEMP 36.8; Ht 182.9 cm; Wt 118.0 kg
[2016-12-13 10:39] LABS: BASO % 0.3 %; BASO ABS # 0.02 K/uL (0-0.2); COMPLETE YES; EOS % 2.9 %; HEMATOCRIT 39.9 % (42-52); LYMPH % 35.1 %; LYMPH ABS # 2.04 K/uL (1.2-3.4); MEAN CELL VOLUME 88.1 fL (80-100); MEAN CORPUSCULAR HEMOGLOBIN 30.9 pg (25-34); MEAN CORPUSCULAR HGB CONC 35.1 g/dl (32-36); MEAN PLATELET VOLUME 10.1 fL (7.4-10.4); MONO % 11.9 %; NEUT % 49.8 %; PLATELET COUNT 210 K/uL (130-400); RED BLOOD COUNT 4.53 M/uL (4.7-6.1); WHITE BLOOD COUNT 5.81 K/uL (4.8-10.8)
--- NOTE | 2016-12-13 10:47 | DIAGNOSTIC IMAGING REPORT ---
CHEST ONE VIEW PORTABLE CLINICAL HISTORY: Fever. Sepsis. COMPARISON STUDY: Chest radiograph October and chest CT September 02, 2016. FINDINGS: Lung volumes are normal. No pneumothorax or pleural effusion is present. There is no consolidation to suggest pneumonia. There is no evidence of pulmonary edema. Mild dextroscoliosis of the thoracic spine is incidentally noted. IMPRESSION: No acute cardiopulmonary findings. Electronically signed by: Donald Sr M.D. 12/13/2016 10:45 AM Dictated Date/Time: 12/13/2016 10:44 AM
[2016-12-13 10:50] LABS: INR 1.2 (0.9-1.1); PARTIAL THROMBOPLASTIN RATIO 1.2; PROTHROMBIN TIME (PATIENT) 12.7 SECONDS (9.0-12.0)
[2016-12-13 10:56] LABS: ALT/SGPT 30 U/L (12-78); AST/SGOT 28 U/L (15-37); BLOOD UREA NITROGEN 17 mg/dl (7-18); BUN/CREATININE RATIO 15.1 (10-20); CALCIUM 8.7 mg/dl (8.5-10.1); CARBON DIOXIDE 22 mmol/L (21-32); CHLORIDE 109 mmol/L (98-107); CREATININE 1.11 mg/dl (0.60-1.40); GLUCOSE 109 mg/dl (70-99); SODIUM 140 mmol/L (136-145)
[2016-12-13 11:08] LABS: ALKALINE PHOSPHATASE 65 U/L (45-117); CKMB/CK RATIO 1.2 (0-3.0)
[2016-12-13 12:33] VITALS: BP 99/67; PULSE 94; O2SAT 98
--- NOTE | 2016-12-13 12:44 | EMERGENCY ROOM VISIT NOTE ---
History Report prepared by Chacorta: Cheli Marx Under the Supervision of: Dr. Lloyd Jones D.O. First contact with patient: 10:12 Chief Complaint: CHEST PAIN Stated Complaint: AFIB/AFLUTTER-HEART PAIN History of Present Illness The patient is a 66 year old male who presents to the Emergency Room with complaints of an intermittent irregular heart rates and rhythms that began on Sunday. He currently rates his discomfort as a 2/10 in severity. The patient states that he has a history of atrial fibrillation and atrial flutter. He states that he is normally in a normal sinus rhythm. The patient states that when he goes in to atrial fibrillation or atrial flutter it can last 4-8 hours each time. He states that he is on Xarelto and Sotalol for his symptoms. 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 Today, he reports chest pain, diaphoresis, and shortness of breath with his symptoms. The patient states that he noticed himself go into atrial fibrillation when his 9 year old grandson had a violent outburst. Per nursing staff, the patient stated that he has been told he may need to have a cardioversion. Source of History: patient, nursing staff Onset: Sunday Position: other (global) Symptom Intensity: 2/10 Quality: other (irregular heart rates and rhythms) Timing: intermittent Associated Symptoms: + diaphoresis, + chest pain, + SOB Review of Systems See HPI for pertinent positives & negatives. A total of 10 systems reviewed and were otherwise negative. Past Medical & Surgical Medical Problems: (1) DVT (deep venous thrombosis) (2) Dyslipidemia (3) PAF (paroxysmal atrial fibrillation) (4) Pulmonary embolism Surgical Problems: (1) H/O cervical discectomy (2) History of tonsillectomy and adenoidectomy (3) Status post total knee replacement, left (4) Status post total knee replacement, right Family History FH: heart attack FATHER (fatal [place] at age 58) Social History Smoking Status: Never Smoker Alcohol Use: none Drug Use: none Marital Status: Housing Status: lives with family Current/Historical Medications Scheduled Rivaroxaban (Xarelto), 20 MG PO DAILY Sotalol Hcl (Afib/Afl) (Sotalol Hcl (Af)), 120 MG PO BID Allergies Coded Allergies: No Known Allergies (Unverified , 12/13/16) Physical Exam Vital Signs Date Time Temp Pulse Resp B/P (MAP) Pulse Ox O2 Delivery O2 Flow Rate FiO2 12/13/16 12:33 94 16 99/67 98 Room Air 12/13/16 11:36 94 16 120/62 95 Room Air 12/13/16 10:15 109 12/13/16 10:13 96 Room Air 12/13/16 10:13 36.8 119 18 101/61 96 Room Air Physical Exam CONSTITUTIONAL/VITAL SIGNS: Reviewed / noted above. GENERAL: Non-toxic in appearance. INTEGUMENTARY: Warm, dry, and [place]. HEAD: Normocephalic. EYES: without scleral icterus or trauma. ENT/OROPHARYNX: clear and moist. LYMPHADENOPATHY/NECK: Is supple without lymphadenopathy or meningismus. RESPIRATORY: Lungs clear and equal. CARDIOVASCULAR: Irregular, slightly rapid heart rate GI/ABDOMEN: Soft and nontender. No organomegaly or pulsatile mass. No rebound or guarding. Normal bowel sounds. EXTREMITIES: Warm and well perfused. BACK: No CVA tenderness. NEUROLOGICAL: Intact without focal deficits. PSYCHIATRIC: normal affect. MUSCULOSKELETAL: Normally developed with good muscle tone. Medical Decision & Procedures ER Provider Diagnostic Interpretation: X ray results and stated below per my interpretation and radiology interpretation. CHEST ONE VIEW PORTABLE CLINICAL HISTORY: Fever. Sepsis. COMPARISON STUDY: Chest radiograph October and chest CT September 02, 2016. FINDINGS: Lung volumes are normal. No pneumothorax or pleural effusion is present. There is no consolidation to suggest pneumonia. There is no evidence of pulmonary edema. Mild dextroscoliosis of the thoracic spine is incidentally noted. IMPRESSION: No acute cardiopulmonary findings. Electronically signed by: Donald Sr M.D. 12/13/2016 10:45 AM Dictated Date/Time: 12/13/2016 10:44 AM Laboratory Results 12/13/16 10:25 Red Blood Count 4.53, Mean Corpuscular Volume 88.1, Mean Corpuscular Hemoglobin 30.9, Mean Corpuscular Hemoglobin Concent 35.1, Mean Platelet Volume 10.1, Neutrophils (%) (Auto) 49.8, Lymphocytes (%) (Auto) 35.1, Monocytes (%) (Auto) 11.9, Eosinophils (%) (Auto) 2.9, Basophils (%) (Auto) 0.3, Neutrophils # (Auto ) 2.89, Lymphocytes # (Auto) 2.04, Monocytes # (Auto) 0.69, Eosinophils # (Auto ) 0.17, Basophils # (Auto) 0.02 12/13/16 10:25 Test 12/13/16 10:25 White Blood Count 5.81 K/uL (4.8-10.8) Red Blood Count 4.53 M/uL (4.7-6.1) Hemoglobin 14.0 g/dL (14.0-18.0) Hematocrit 39.9 % (42-52) Mean Corpuscular Volume 88.1 fL (80-100) Mean Corpuscular Hemoglobin 30.9 pg (25-34) Mean Corpuscular Hemoglobin Concent 35.1 g/dl (32-36) Platelet Count 210 K/uL (130-400) Mean Platelet Volume 10.1 fL (7.4-10.4) Neutrophils (%) (Auto) 49.8 % Lymphocytes (%) (Auto) 35.1 % Monocytes (%) (Auto) 11.9 % Eosinophils (%) (Auto) 2.9 % Basophils (%) (Auto) 0.3 % Neutrophils # (Auto) 2.89 K/uL (1.4-6.5) Lymphocytes # (Auto) 2.04 K/uL (1.2-3.4) Monocytes # (Auto) 0.69 K/uL (0.11-0.59) Eosinophils # (Auto) 0.17 K/uL (0-0.5) Basophils # (Auto) 0.02 K/uL (0-0.2) RDW Standard Deviation 43.4 fL (36.4-46.3) RDW Coefficient of Variation 13.4 % (11.5-14.5) Immature Granulocyte % (Auto) 0.0 % Immature Granulocyte # (Auto) 0.00 K/uL (0.00-0.02) Prothrombin Time 12.7 SECONDS (9.0-12.0) Prothromb Time International Ratio 1.2 (0.9-1.1) Activated Partial Thromboplast Time 30.4 SECONDS (21.0-31.0) Partial Thromboplastin Ratio 1.2 Anion Gap 9.0 mmol/L (3-11) Est Creatinine Clear Calc Drug Dose 88.0 ml/min Estimated GFR () 80.3 Estimated GFR (Non- 69.3 BUN/Creatinine Ratio 15.1 (10-20) Calcium Level 8.7 mg/dl (8.5-10.1) Total Bilirubin 1.7 mg/dl (0.2-1) Direct Bilirubin 0.3 mg/dl (0-0.2) Aspartate Amino Transf (AST/SGOT) 28 U/L (15-37) Alanine Aminotransferase (ALT/SGPT) 30 U/L (12-78) Alkaline Phosphatase 65 U/L (45-117) Total Creatine Kinase 149 U/L (39-308) Creatine Kinase MB 1.8 ng/ml (0.5-3.6) Creatine Kinase MB Ratio 1.2 (0-3.0) Troponin I < 0.015 ng/ml (0-0.045) Total Protein 7.6 gm/dl (6.4-8.2) Albumin 3.7 gm/dl (3.4-5.0) Lipase 184 U/L (73-393) Thyroid Stimulating Hormone (TSH) 6.360 uIu/ml (0.300-4.500) Laboratory results as stated above per my review. ECG Indication: chest pain, diaphoresis, SOB/dyspnea, tachycardia Rate (beats per minute): 126 Rhythm: atrial fibrillation Findings: no acute ischemic change, no ectopy ED Course 1019: Previous medical records were reviewed. The patient was evaluated in room B12B. A complete history and physical examination was performed. 1125: I discussed the patients case with Dr. Guido, Cardiology. He states that the patient should either be observed in the hospital or sent home with a follow up appointment in a few days for an elective cardioversion. 1137: I reevaluated the patient and he is resting. I discussed the exam findings with him and I discussed the treatment plan. 1140: I spoke to Dr. Guido from Cardiology again at this time. He states that he is going to call the office to see if the patient can get set up as an outpatient for an elective cardioversion. 1203: I spoke to [facility] office and they state that the patient would not get in for an elective cardioversion until Sunday. 1206: I updated the patient at this time. 1221: I spoke to the [facility]. They have scheduled the patient for a cardioversion on Sunday morning. 1222: I spoke to the patient and his at this time. I discussed the treatment plan with them and they verbalized complete understanding and agreement. The patient is ready for discharge. Medical Decision Differentials considered include acute myocardial infarction, acute coronary syndrome, myocarditis, pericarditis, pericardial effusions /tamponade, esophageal perforation, thoracic aortic dissection, pulmonary embolism, pneumonia, pneumothorax, pancreatitis, shingles, acute cholecystitis, and perforated abdominal viscus. This is a 66-year-old male who presents to the ED with a chief complaint of chest palpitations. The patient states that he has intermittent atrial fibrillation. He states that he has been in and out of it for some time and is scheduled to have evaluation for possible ablation in the near future. The patient developed atrial fibrillation last evening. He has had the symptoms since that time. Normally when he develops atrial fibrillation it lasted for about 3 or 4 hours. The patient reports no other significant symptoms. He has not had fevers, shortness of breath, nausea, vomiting or other symptoms. The symptoms occurred last night after having an argument with his grandson. He has A. fib noted on the monitor. His rate seems to be controlled. His initial EKG showed A. fib with a rate of 126. He has been primarily in the 90s here. Chest x-ray did not show acute disease. CBC is normal, complete metabolic panel was unremarkable, troponin was normal. The patient is currently on sotalol and Xaralto. I spoke with Dr. Guido about this patient. He does not feel emergent cardioversion is necessary. I spoke with the patient and he would like to go home. The patient has been arranged to have elective cardioversion on Sunday by Dr. Zaldivar, the patient's surg rn. He will return to the emergency department for any new or worsening symptoms should they arise until then. Medication Reconcilliation Current Medication List: was personally reviewed by me Blood Pressure Screening Patient's blood pressure: Normal blood pressure Blood pressure disposition: Did not require urgent referral Consults Time Called: 1120 Consulting Physician: Dr. Guido, Cardiology Returned Call: 1125 I discussed the patients case with Dr. Guido, Cardiology. He states that the patient should either be observed in the hospital or sent home with a follow up appointment in a few days for an elective cardioversion. Impression Primary Impression: Paroxysmal a-fib Scribe Attestation The scribe's documentation has been prepared under my direction and personally reviewed by me in its entirety. I confirm that the note above accurately reflects all work, treatment, procedures, and medical decision making performed by me. Departure Information Dispostion Home / Self-Care Referrals Aldo Castro D.O. (PCP) Forms Call Back Authorization, HOME CARE DOCUMENTATION FORM, IMPORTANT VISIT INFORMATION Patient Instructions My [employer] Additional Instructions Get instructions from the [employer] system for your outpatient cardioversion scheduled for this Sunday. Return for any concerns or worsening or call your surg rn for advice. Continue your current medications.
[2016-12-18] MEDS ORDERED: POTA10CA28 PO (06:46)
== END 2016-12-13 12:51 | disposition home or self-care (01) ==
LOC: C.EDB 10:03
DX: I48.0 Paroxysmal atrial fibrillation (principal); I26.99 Other pulmonary embolism without acute cor pulmonale; E78.5 Hyperlipidemia, unspecified

== ENCOUNTER 2019-03-17 17:32 | Inpatient (IN) ==
--- OUTSIDE RECORDS SUMMARY | 2019-03-17 17:34 | External Medical Summary | Continuity of Care Document ---
:1950 Author Name Hilaria Franco Address Unavailable Unavailable , Care Team Providers Name Role Phone Quinton Mayorga [email or web address] Cherie LAIRD Unavailable Unavailable Unavailable Unavailable Unavailable Assessments Assessed Problems:Laryngopharyngeal refluxCandidiasis Problems Right bundle branch block (426.4) (I45.0) Laryngopharyngeal reflux (478.79) (K21.9) Candidiasis (112.9) (B37.9) Pre-operative cardiovascular examination (V72.81) (Z01.810) Paroxysmal supraventricular tachycardia (427.0) (I47.1) Pneumonia (486) (J18.9) Nontoxic multinodular goiter (241.1) (E04.2) Abnormal chest x-ray with multiple lung nodules (793.19) (R9 1.8) Allergies and Adverse Reactions No Known Drug Allergies (Allergy) Medications Omeprazole 40 MG Oral Capsule Delayed Release; TAKE 1 CAPSULE DAILY. Joan Mayorga Start: 22-Jan-2014 Quantity: 30 Refills: 10 Fluconazole 150 MG Oral Tablet; Take 2 t ablets on day one and then one tablet per day on days 2 through 10 Joan Mayorga Start: 22-Jan-2014 Quantity: 12 Refills: 1 Procedures History of Cervical Vertebral Fusion Sta tus: Completed History of Ant Spinal Diskectomy, Osteophytectomy One Cerv Status: Completed Interspace History of Knee Replacement Status: Comp leted Immunizations Immunizations not documented Family History Unknown Family Member Family history of Coronary Artery Disease Status: Active Comments: Family History (V17.49) Family history of Peptic Ulcer Status: Active Comments: Family History Social History - Smoking Status Never smoker Interventions Medication ChangesFluconazole 150 MG Oral Tablet - StartOmeprazole 40 MG Oral Capsule Delayed Release - StartFollow-ups/ReferralsFollow-up as needed; Done: 22 Jan 2014 Plan of Treatment Planned Observations Planned Goals not documented Results No Known Results Results not documented Encounters Appointment; Shimon Mayorga M.D. 22-Jan-2014 13:00 Encounter Diagnosis: Problem not documented
[2019-03-17] MEDS ORDERED: dilTIAZem HCl 5 MG/ML 5 ML VIAL IV STA (17:53)
[2019-03-17] MEDS ORDERED: SODIUM CHLORIDE 0.9% 1000ML 1,000 ML IV SCH (18:00)
--- NOTE | 2019-03-17 18:11 | XRay Report ---
XR chest 1V portable HISTORY: 68 years-old Male weakness acute weakness COMPARISON: Chest radiograph 12/13/2016 TECHNIQUE: Portable AP view the chest FINDINGS: Cardiac silhouette is moderately enlarged, increased in size from comparison. Mild pulmonary vascular congestion. No pneumothorax, or large pleural effusion. Mild chronic interstitial coarsening of the lung bases with bibasilar opacities. Bones appear grossly intact. Convex right curvature of the midth oracic spine. IMPRESSION: 1. Cardiomegaly with pulmonary vascular congestion. 2. Bibasilar densities suggest atelectasis. ACT 112: Negative or not required by law. The above report was generated using voice recognition software. It may contain grammatical, syntax o r spelling errors. Electronically signed by: Manuel Suarez M.D. 03/17/2019 6:10 PM
[2019-03-17] MEDS ORDERED: OPTIRAY 320 125ml IV PRN (18:23)
[2019-03-17 18:27] LABS: Basophils # (auto) 0.02 K/uL (0-0.2); Basophils % (auto) 0.2 %; Eosinophils # (auto) 0.12 K/uL (0-0.5); Eosinophils % (auto) 1.3 %; Hematocrit (blood only) 40.9 % (42-52); Hemoglobin 14.3 g/dL (14.0-18.0); Immature Granulocytes # (auto) 0.01 K/uL (0.00-0.02); Immature Granulocytes % (auto) 0.1 %; Lymphocytes # (auto) 2.82 K/uL (1.2-3.4); Lymphocytes % (auto) 31.3 %; Mean Corpuscular Hemoglobin 31.4 pg (25-34); Mean Corpuscular Volume 89.9 fL (80-100); Mean Platelet Volume 10.1 fL (7.4-10.4); Monocytes # (auto) 0.64 K/uL (0.11-0.59); Monocytes % (auto) 7.1 %; Neutrophils # (auto) 5.39 K/uL (1.4-6.5); Platelet Count 244 K/uL (130-400); RDW Coefficient of Variation 13.3 % (11.5-14.5); RDW Standard Deviation 43.4 fL (36.4-46.3); Red Blood Count 4.55 M/uL (4.7-6.1)
[2019-03-17 18:38] LABS: INR 1.1 (0.9-1.1); Partial Thromboplastin Ratio 0.9; Partial Thromboplastin Time 24.4 Seconds (21.0-31.0); Prothrombin Time 10.9 Seconds (9.0-12.0)
--- NOTE | 2019-03-17 18:57 | CT Scan Report ---
CT head/brain wo con CLINICAL HISTORY: 68 years-old Male with Stroke evaluation . Acute strokelike symptoms TECHNIQUE: Multiple axial CT images of the head were obtained without contrast. A dose lowering tech nique was utilized adhering to the principles of ALARA. COMPARISON: CTA head neck of same day, head CT 01/18/2018 FINDINGS: No acute intracranial hemorrhage, midline shift, intracranial mass, hydrocephalus, territorial ischem ia or abnormal extra-axial collection. Minimal patchy white matter hypodensities suggest chronic micr ovascular ischemic disease. The calvarium is intact. Mild mucosal thickening of the ethmoid air cells and left maxillary sinus. Mastoid air cells are clear. Soft tissues are unremarkable. The orbits are within normal limits. IMPRESSION: No acute intracranial abnormality. ACT 112: Negative or not required by law. The above report was generated using voice recognition software. It may contain grammatical, syntax o r spelling errors. Electronically signed by: Manuel Suarez M.D. 03/17/2019 6:56 PM
[2019-03-17 19:23] LABS: Alanine Aminotransferase 30 U/L (12-78); Albumin Globulin Ratio 0.9 (0.9-2); Albumin Level 3.7 gm/dl (3.4-5.0); Alkaline Phosphatase 66 U/L (45-117); BUN Creatinine Ratio 17.8 (10-20); Bilirubin,Total 1.8 mg/dl (0.2-1); Blood Urea Nitrogen 20 mg/dl (7-18); Calcium 8.9 mg/dl (8.5-10.1); Carbon Dioxide 24 mmol/L (21-32); Chloride 110 mmol/L (98-107); Creatinine Clr Calc Pharmacy 85.3 ml/min; Est GFR (African American) 76.7; Est GFR (Non-African American) 66.2; Glucose 101 mg/dl (70-99); Sodium 140 mmol/L (136-145); Total Protein 7.7 gm/dl (6.4-8.2); Troponin I < 0.015 ng/ml (0-0.045)
--- NOTE | 2019-03-17 19:36 | CT Scan Report ---
CT angio neck with con, CT angio head w con CLINICAL HISTORY: 68 years-old Male with weakness. Acute weakness COMPARISON STUDY: Head CT of same day, CT cervical spine 01/18/2018 TECHNIQUE: Following the IV administration of 116 mL of Optiray 320, CT angiogram of the head and nec k was performed from the aortic arch to the skull base. Images are reviewed in the axial, sagittal, a nd coronal planes. 3-D MIPS images are created and assessed. IV contrast was administered without com plication. All measurements were calculated based on NASCET criteria. A dose lowering technique was utilized adhering to the principles of ALARA. CT DOSE: 1620.14 mGy.cm FINDINGS: The imaged opacified pulmonary artery is unremarkable. Bovine morphology of the thoracic aortic arch. Patency of the imaged subclavian arteries. Patent bilateral common carotid arteries. The internal ca rotid arteries are also widely patent and unremarkable. 5 mm thrombus involves a distal left M2 branc h on image 467 of series 4. The right middle and bilateral anterior cerebral arteries are widely mooney nt and unremarkable. There is no abnormal intracranial enhancement identified. Dominant left vertebral artery. The bilateral vertebral arteries, basilar and posterior cerebral grazyna gerardo are widely patent. Cerebral venous sinuses are also patent. Small layering pleural effusions. No pneumothorax. Multinodular thyroid with a 2.9 x 2.6 cm heterogen eous right thyroid nodule. Mild to moderate mucosal thickening of the maxillary and ethmoid sinuses. Multilevel degenerative changes of the spine. IMPRESSION: 1. 5 mm thrombus involves a distal left M2 branch. 2. Otherwise unremarkable CTA of the head and neck. 3. Multinodular goiter includes a 2.9 x 2.6 cm right thyroid nodule. Findings could be correlated wit h a follow-up nonemergent thyroid ultrasound. ACT 112: Negative or not required by law. The above report was generated using voice recognition software. It may contain grammatical, syntax o r spelling errors. Electronically signed by: Manuel Suarez M.D. 03/17/2019 7:35 PM
[2019-03-17 20:06] LABS: Potassium 4.2 mmol/L (3.5-5.1)
[2019-03-17 20:40] LABS: Thyroid Stimulating Hormone 4.27 uIu/ml (0.300-4.500)
--- NOTE | 2019-03-17 20:57 | History & Physical Report ---
Date of Service March 17, 2019 Assessment & Plan (1) Stroke: Pt is 68 y/o M with PMH chronic atrial fibrillation, goiter, chronic pain presented to ER with c/o "garbled speech". Around 9AM today having difficulty with his words and using wrong words and also questionable slurred speech. C ontinued until around 4pmDenies any DESHPANDE, dizziness, vision changes, noted facial drooping, extremity paresthesias or weakness. In ER pt's symptoms have resolved. Initial HR 140 down to 85, R: 18, BP: 127/82, 97% on RA. CT HEAD W/O CONTRAST: No acute intracranial abnormality. CTA HEAD & CTA NECK: 5 mm thrombus involves a distal left M2 branch. Otherwise unremarkable CTA of the head and neck. Multinodular goiter includes a 2.9 x 2.6 cm right thyroid nodule. In ER given Cardizem for rapid a-fib, NSS at 50ml/hr (2) Atrial fibrillation with RVR: Chronic atrial fibrillation Follows with Dr Zaldivar. Stopped taking Xarelto in 12/2018 Self stopped metoprolol succinate in 02/2019 In ER found to be in a-fib RVR with rate 140 In ER given Cardizem 20mg IV with HR then controlled in 90's (3) Chronic pain: Chronic neck, back, knee pain On Percocet prn Follows with Dr Medina for routine care Pt was seen with Dr Gordon. Further assessment and plan per Dr Gordon. History of Present Illness Chief Complaint: "garbled speech" Primary Care Provider: Jordan Medina MD Pt is 68 y/o M with PMH chronic atrial fibrillation, goiter, chronic pain presented to ER with c/o "garbled speech". Pt reports around 9AM today at work was noted that he was having difficulty with his words and using wrong words and also questionable slurred speech. Around 4pm returned home and noticed pt having trouble producing words and some words seemed slurred. Denies any DESHPANDE, dizziness, vision changes, noted facial drooping, extremity paresthesias or weakness. In ER pt's symptoms have resolved. Pt follows with Dr Zaldivar - cardiology. In 12/2018 pt was switched from sotalol to metoprolol succinate 50mg BID. Had CHADSVASC score of 1 and pt wished to stop Xarelto and stopped taking it in 12/2018. Pt states stopped taking metoprolol in 02/2019 because he states he didn't think he needed it anymore. Pt reports chronic lower extremity edema if legs are dependant and improves with elevation. Denies any increased edema. Denies fever/chills, diaphoresis, N/V/D/C, syncope, CP, SOB, orthopnea, palpitations, cough, sore throat, choking, otalgia, rhinorrhea, abdominal pain, paresthesias, weakness, extremity weakness, rashes, urinary symptoms. Allergies Allergy/AdvReac Type Severity Reaction Status Date / Time No Known Allergies Allergy Unverified 03/17/19 18:22 Home Medications Home Medications Medication Instructions Recorded Confirmed Type oxycodone-acetaminophen [Percocet] 1 tab PO Q8 PRN 03/17/19 03/17/19 History Past Med/Surg History Medical History Afib (Acute) DVT (deep venous thrombosis) (Chronic) "provoked, completed Coumadin therapy" Dyslipidemia (Chronic) PAF (paroxysmal atrial fibrillation) (Chronic) Pulmonary embolism (Chronic) "provoked, completed Coumadin therapy" Surgical History H/O cervical discectomy (Chronic) History of tonsillectomy and adenoidectomy (Chronic) Status post total knee replacement, left (Chronic) Status post total knee replacement, right (Chronic) Family History (Updated 03/17/19 @ 20:58 by Cecy Ervin PA-C) Father Coronary heart disease Social History (Updated 03/17/19 @ 20:58 by Cecy Ervin PA-C) Preferred Language: Korean Communication Ability: Effective 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 Beliefs That Will Affect Care: None Current Living Situation: Family Other Information That Helps Us Care for You: No Feels Safe at Home: Yes Safety Concerns: Feels Safe At This Time Smoking Status: Unknown if ever smoked Hx Alcohol Use: No Hx Substance Use: No Review of Systems Review of Systems: All systems reviewed & are unremarkable except as noted in HPI & below Physical Exam Physical Exam: General: no distress, WDWN Head: normocephalic, atraumatic Eyes: PERRL, EOM's intact, no nystagmus, conjunctiva non-injected, anicteric ENT: normal inspection external ears, nose, mucous membranes moist Neck: supple, trachea midline Lungs: clear, no respiratory distress, no wheezing/rhonchi/rales CV: RRR, no murmur, trace pretibial edema Abd: normal BS, soft, non-tender Ext: no cyanosis, no calf tenderness Neuro: A&O x 3, normal affect, facial sensation is intact and symmetric, face is strong and symmetric, hearing grossly intact, soft palate elevates symmetrically, no dysarthria, shoulder shrug intact, tongue is midline, normal movement, Strength 5/5 upper and lower extremities Skin: warm, dry Results & Data Vital Signs (Past 12 Hours) Vital Signs Temp Pulse Pulse Resp BP BP Pulse Ox 03/17/19 20:05 90 20 146/94 H 98 03/17/19 19:06 85 16 138/87 96 03/17/19 19:01 81 20 124/90 98 03/17/19 18:37 94 H 20 146/93 H 98 03/17/19 18:08 86 24 130/87 97 03/17/19 17:38 37.1 C 140 H 18 127/82 97 Laboratory Results Short CBC 03/17/19 Range/Units 17:59 WBC 9.00 (4.8-10.8) K/uL Hgb 14.3 (14.0-18.0) g/dL Hct 40.9 L (42-52) % Plt Count 244 (130-400) K/uL BMP 03/17/19 03/17/19 17:59 19:44 Sodium 140 Potassium 4.2 Chloride 110 H Carbon Dioxide 24 BUN 20 H Creatinine 1.14 Glucose 101 H Calcium 8.9 Cardiac Enzymes 03/17/19 Range/Units 17:59 Troponin I < 0.015 (0-0.045) ng/ml Liver Function 03/17/19 03/17/19 Range/Units 17:59 19:44 Total Bilirubin 1.8 H (0.2-1) mg/dl AST 24 (15-37) U/L ALT 30 (12-78) U/L Alkaline Phosphatase 66 (45-117) U/L Albumin 3.7 (3.4-5.0) gm/dl Diagnostic Findings CXR: IMPRESSION: 1. Cardiomegaly with pulmonary vascular congestion. 2. Bibasilar densities suggest atelectasis. CT HEAD WITHOUT CONTRAST: IMPRESSION: No acute intracranial abnormality. CTA HEAD & CTA NECK: IMPRESSION: 1. 5 mm thrombus involves a distal left M2 branch. 2. Otherwise unremarkable CTA of the head and neck. 3. Multinodular goiter includes a 2.9 x 2.6 cm right thyroid nodule. Findings could be correlated with a follow-up nonemergent thyroid ultrasound. ECG Rate (beats per minute): 128 Rhythm: atrial fibrillation Supervising Physician Co-Signing Physician Notes IM ATTENDING : Patient seen and examined. History obtained from patient and records. Preceding documentation by Ms. Cecy Ervin PA-C reviewed. FINAL ASSESSMENT AND PLAN as follows : TIA recurrent atrial fibrillation, past hx ablation Home beta-makenzie noncompliance Pulmonary congestion secondary to uncontrolled A. fib, patient denies chest pain, S OB symptoms Known history of goiter. PCU Neurochecks MRI MRI/MRA of the brain, 2D echo for stroke work-up, check lipid profile Neurology consult RE TIA Low-dose Lopressor (for rate control for recurrent A. fib) for now to optimize cerebral perfusion with possible CVA as patient blood pressure not significantly elevated. Anticoagulation for thromboembolic prophylaxis at some point Cardiology consult RE recurrent A. fib Outpatient ENT consultation for nonfunctioning goiter work-up DVT prophylaxis per Lovenox subcu Full code
[2019-03-17] MEDS ORDERED: METOPROLOL TARTRATE 50 MG TAB ONE (21:40)
[2019-03-17] MEDS ORDERED: METOPROLOL SUCC 50MG EXT REL TAB PO ONE (21:45)
[2019-03-17] MEDS ORDERED: METOPROLOL TARTRATE 25 MG TAB PO SCH (21:45)
[2019-03-17] MEDS ORDERED: ASPIRIN 81 MG CHEW PO STA (22:06)
--- NOTE | 2019-03-17 22:28 | Emergency Department Note ---
Entered by Carlos Grimes acting as a scribe for Eliezer Abbott DO History of Present Illness General Chief complaint: Neuro Symptoms/Deficit Stated complaint: GARBLED SPEECH ALL DAY Time Seen by Provider: 03/17/19 17:48 Source: patient Limitations: no limitations History of Present Illness Onset (ago): hour(s) 9 Location: head Pain Consistency: + now resolved Quality: + other (garbled speech) Associated symptoms: + denies other symptoms (neck pain, neck stiffness); no headaches, no nausea/vomiting and no weakness (in arms or legs) The patient is a 68 year old male who presents to the Emergency Room with complaints of now-resolved speech problems starting 9 hours ago. The patient states he woke up this morning and then his speech was garbled 4 hours later. The patient's states the patient speech was still messed up an hour and half ago. The patient denies having headaches, nausea, weakness in his arms or legs, neck pain, and neck stiffness. He states he has never had symptoms like this before. He states he has A-Fib, but was taken off blood thinners. He denies having previous strokes or heart attacks. Home Medications Home Medications Medication Instructions Recorded Confirmed Type oxycodone-acetaminophen [Percocet] 1 tab PO Q8 PRN 03/17/19 03/17/19 History Allergies Allergy/AdvReac Type Severity Reaction Status Date / Time No Known Allergies Allergy Unverified 03/17/19 18:22 Past Med/Surg History Medical History (Updated 03/17/19 @ 21:05 by Cecy Ervin PA-C) Chronic atrial fibrillation Chronic pain DVT (deep venous thrombosis) (Chronic) "provoked, completed Coumadin therapy" Dyslipidemia (Chronic) Goiter Pulmonary embolism (Chronic) "provoked, completed Coumadin therapy" Surgical History H/O cervical discectomy (Chronic) History of tonsillectomy and adenoidectomy (Chronic) Status post total knee replacement, left (Chronic) Status post total knee replacement, right (Chronic) Family History (Updated 03/17/19 @ 20:58 by Cecy Ervin PA-C) Father Coronary heart disease Social History (Updated 03/17/19 @ 20:58 by Cecy Ervin PA-C) Feels Safe at Home: Yes Smoking Status: Never smoker Hx Alcohol Use: No Hx Substance Use: No Review of Systems See HPI for pertinent positives & negatives. and A total of 10 systems reviewed and were otherwise negative Physical Exam Vital Signs Vital Signs - 24 hr 03/17/19 17:38 03/17/19 18:08 03/17/19 18:37 Temperature 37.1 C Temperature Source Oral Pulse Rate 140 H 86 Pulse Rate [Right Finger] 94 H Pulse Rate from SpO2 Sensor 88 Pulse Rhythm [Right Finger] Pulse Strength [Right Finger] Respiratory Rate 18 24 20 Respiratory Effort / Characteristics Respiratory Depth Normal Blood Pressure 127/82 130/87 Blood Pressure [Left Arm] 146/93 H Blood Pressure Mean 97 89 Blood Pressure Mean [Left Arm] 110 Blood Pressure Position [Left Arm] Sitting Pulse Oximetry 97 97 98 Oxygen Delivery Method Sepsis Recent Fever Within 48 Hours No Sepsis Action Taken by Nursing No Action Required 03/17/19 19:01 03/17/19 19:06 03/17/19 20:05 Temperature Temperature Source Pulse Rate 81 90 Pulse Rate [Right Finger] 85 Pulse Rate from SpO2 Sensor 103 H Pulse Rhythm [Right Finger] Regular Pulse Strength [Right Finger] Normal Respiratory Rate 20 16 20 Respiratory Effort / Characteristics Non-Labored Spontaneous Respiratory Depth Normal Blood Pressure 124/90 146/94 H Blood Pressure [Left Arm] 138/87 Blood Pressure Mean 99 101 Blood Pressure Mean [Left Arm] 104 Blood Pressure Position [Left Arm] Pulse Oximetry 98 96 98 Oxygen Delivery Method Room Air Sepsis Recent Fever Within 48 Hours Sepsis Action Taken by Nursing 03/17/19 20:30 03/17/19 20:44 03/17/19 21:00 Temperature Temperature Source Pulse Rate 85 115 H 84 Pulse Rate [Right Finger] Pulse Rate from SpO2 Sensor 91 H 104 H 81 Pulse Rhythm [Right Finger] Pulse Strength [Right Finger] Respiratory Rate 19 21 14 Respiratory Effort / Characteristics Respiratory Depth Blood Pressure 140/103 H 136/86 142/88 H Blood Pressure [Left Arm] Blood Pressure Mean 113 95 104 Blood Pressure Mean [Left Arm] Blood Pressure Position [Left Arm] Pulse Oximetry 98 95 96 Oxygen Delivery Method Sepsis Recent Fever Within 48 Hours Sepsis Action Taken by Nursing 03/17/19 21:30 Temperature Temperature Source Pulse Rate 100 H Pulse Rate [Right Finger] Pulse Rate from SpO2 Sensor 85 Pulse Rhythm [Right Finger] Pulse Strength [Right Finger] Respiratory Rate 19 Respiratory Effort / Characteristics Respiratory Depth Blood Pressure 142/102 H Blood Pressure [Left Arm] Blood Pressure Mean 111 Blood Pressure Mean [Left Arm] Blood Pressure Position [Left Arm] Pulse Oximetry 93 Oxygen Delivery Method Sepsis Recent Fever Within 48 Hours Sepsis Action Taken by Nursing GENERAL: Patient is awake, alert, and in no acute distress.Patient is resting comfortably and showing no signs of anxiety EYES: The conjunctivae are clear. The pupils are round and reactive. EARS, NOSE, MOUTH AND THROAT: The nose is without any evidence of any deformity. Mucous membranes are moist.Tongue is midline NECK: The neck is nontender and supple. RESPIRATORY: Normal respiratory effort is noted. There is no evidence of wheezing rhonchi or rales to auscultation. CARDIOVASCULAR: Tachycardic and irregular rhythm noted to auscultation. No definite murmur was noted. GASTROINTESTINAL: The abdomen is soft. Bowel sounds are present in all quadrants. Abdomen is nontender. MUSCULOSKELETAL/EXTREMITIES: There is no evidence of gross deformity. Full range of motion is noted in the hips and shoulders. SKIN: There is no obvious evidence of any rash. There are no petechiae, pallor or cyanosis noted. NEUROLOGIC: Patient is awake alert and oriented x3. Strength is symmetric. Patellar reflexes are 2+ bilaterally. Course Course 174: The patient was evaluated in room A1, and a complete history and physical examination were performed. 2008: I discussed the patient's case with Dr. Holbrook - [facility] Hospitalist. He will evaluate the patient for further management. Administered Medications Ioversol (Optiray 320 125ml) 116 ml IV ONCE PRN PRN Reason: Interaction Checking Stop: 03/21/19 18:22 Last Admin: 03/17/19 18:23 Dose: 116 ml Documented by: [id number] Metoprolol Tartrate (Lopressor) 12.5 mg PO BID [facility] Stop: 04/16/19 21:44 Last Admin: 03/17/19 21:45 Dose: 12.5 mg Documented by: [id number] Discontinued Medications Aspirin (Aspirin Chew) 324 mg PO NOW STA Stop: 03/17/19 22:07 Last Admin: 03/17/19 22:22 Dose: 324 mg Documented by: [id number] Diltiazem HCl (Cardizem) 20 mg IV NOW STA Stop: 03/17/19 17:54 Last Admin: 03/17/19 17:57 Dose: 20 mg Documented by: [id number] Cosigned by: [id number] Sodium Chloride (Nss 1000ml) 1,000 mls @ 50 mls/hr IV .Q20H MARGIE Stop: 04/16/19 17:59 Last Admin: 03/17/19 18:00 Dose: 50 mls/hr Documented by: [id number] Metoprolol Tartrate (Lopressor) Confirm Administered Dose 50 mg .ROUTE .STK-MED ONE Stop: 03/17/19 21:41 Last Admin: 03/17/19 21:46 Dose: Not Given Documented by: [id number] Medical Decision Making Differential Diagnosis Differential Diagnosis includes but is not limited to dehydration, stroke, anemia, hypoglycemia, hyponatremia, hypernatremia, urinary tract infection, pneumonia, bronchitis, sepsis, gastroenteritis, additional abdominal pathology, metabolic abnormalities and infections. Medical Records Attestation: I reviewed the patient's medical records. Home Medications Current Medication List: was personally reviewed by me Laboratory Data Attestation: I reviewed the patient's lab results. Result diagrams: 03/17/19 17:59 03/17/19 19:44 Lab Results 03/17/19 03/17/19 03/17/19 Range/Units 17:59 17:59 17:59 WBC 9.00 (4.8-10.8) K/uL RBC 4.55 L (4.7-6.1) M/uL Hgb 14.3 (14.0-18.0) g/dL Hct 40.9 L (42-52) % MCV 89.9 (80-100) fL MCH 31.4 (25-34) pg MCHC 35.0 (32-36) g/dL RDW Std Deviation 43.4 (36.4-46.3) fL RDW Coeff of Nayla 13.3 (11.5-14.5) % Plt Count 244 (130-400) K/uL MPV 10.1 (7.4-10.4) fL Immature Gran % (Auto) 0.1 % Neut % (Auto) 60.0 % Lymph % (Auto) 31.3 % Barry % (Auto) 7.1 % Eos % (Auto) 1.3 % Baso % (Auto) 0.2 % Immature Gran # (Auto) 0.01 (0.00-0.02) K/uL Neut # (Auto) 5.39 (1.4-6.5) K/uL Lymph # (Auto) 2.82 (1.2-3.4) K/uL Barry # (Auto) 0.64 H (0.11-0.59) K/uL Eos # (Auto) 0.12 (0-0.5) K/uL Baso # (Auto) 0.02 (0-0.2) K/uL PT 10.9 (9.0-12.0) Seconds INR 1.1 (0.9-1.1) APTT 24.4 (21.0-31.0) Seconds PTT Ratio 0.9 Sodium 140 (136-145) mmol/L Potassium (3.5-5.1) mmol/L Chloride 110 H (98-107) mmol/L Carbon Dioxide 24 (21-32) mmol/L Anion Gap 6.0 (3-11) BUN 20 H (7-18) mg/dl Creatinine 1.14 (0.6-1.4) mg/dl POC Creatinine (0.6-1.3) mg/dl Est Cr Clr Drug Dosing 85.3 ml/min Est GFR ( Amer) 76.7 Est GFR (Non-Af Amer) 66.2 BUN/Creatinine Ratio 17.8 (10-20) Glucose 101 H (70-99) mg/dl Calcium 8.9 (8.5-10.1) mg/dl Magnesium (1.8-2.4) mg/dl Total Bilirubin 1.8 H (0.2-1) mg/dl AST (15-37) U/L ALT 30 (12-78) U/L Alkaline Phosphatase 66 (45-117) U/L Troponin I < 0.015 (0-0.045) ng/ml NT-Pro-B Natriuret Pep (0-900) pg/ml Total Protein 7.7 (6.4-8.2) gm/dl Albumin 3.7 (3.4-5.0) gm/dl Globulin 4.0 (2.5-4.0) gm/dl Albumin/Globulin Ratio 0.9 (0.9-2) TSH (0.300-4.500) uIu/ml 03/17/19 03/17/19 Range/Units 18:04 19:44 WBC (4.8-10.8) K/uL RBC (4.7-6.1) M/uL Hgb (14.0-18.0) g/dL Hct (42-52) % MCV (80-100) fL MCH (25-34) pg MCHC (32-36) g/dL RDW Std Deviation (36.4-46.3) fL RDW Coeff of Nayla (11.5-14.5) % Plt Count (130-400) K/uL MPV (7.4-10.4) fL Immature Gran % (Auto) % Neut % (Auto) % Lymph % (Auto) % Barry % (Auto) % Eos % (Auto) % Baso % (Auto) % Immature Gran # (Auto) (0.00-0.02) K/uL Neut # (Auto) (1.4-6.5) K/uL Lymph # (Auto) (1.2-3.4) K/uL Barry # (Auto) (0.11-0.59) K/uL Eos # (Auto) (0-0.5) K/uL Baso # (Auto) (0-0.2) K/uL PT (9.0-12.0) Seconds INR (0.9-1.1) APTT (21.0-31.0) Seconds PTT Ratio Sodium (136-145) mmol/L Potassium 4.2 (3.5-5.1) mmol/L Chloride (98-107) mmol/L Carbon Dioxide (21-32) mmol/L Anion Gap (3-11) BUN (7-18) mg/dl Creatinine (0.6-1.4) mg/dl POC Creatinine 1.0 (0.6-1.3) mg/dl Est Cr Clr Drug Dosing ml/min Est GFR ( Amer) Est GFR (Non-Af Amer) BUN/Creatinine Ratio (10-20) Glucose (70-99) mg/dl Calcium (8.5-10.1) mg/dl Magnesium 2.0 (1.8-2.4) mg/dl Total Bilirubin (0.2-1) mg/dl AST 24 (15-37) U/L ALT (12-78) U/L Alkaline Phosphatase (45-117) U/L Troponin I (0-0.045) ng/ml NT-Pro-B Natriuret Pep 2606 H (0-900) pg/ml Total Protein (6.4-8.2) gm/dl Albumin (3.4-5.0) gm/dl Globulin (2.5-4.0) gm/dl Albumin/Globulin Ratio (0.9-2) TSH 4.270 (0.300-4.500) uIu/ml Imaging Data Radiologist's Impression: Radiology results as stated below per my review and the radiologist's interpretation: XR chest 1V portable HISTORY: 68 years-old Male weakness acute weakness COMPARISON: Chest radiograph 12/13/2016 TECHNIQUE: Portable AP view the chest FINDINGS: Cardiac silhouette is moderately enlarged, increased in size from comparison. Mild pulmonary vascular congestion. No pneumothorax, or large pleural effusion. Mild chronic interstitial coarsening of the lung bases with bibasilar opacities. Bones appear grossly intact. Convex right curvature of the midthoracic spine. IMPRESSION: 1. Cardiomegaly with pulmonary vascular congestion. 2. Bibasilar densities suggest atelectasis. ACT 112: Negative or not required by law. The above report was generated using voice recognition software. It may contain grammatical, syntax or spelling errors. Electronically signed by: Manuel Suarez M.D. 03/17/2019 6:[address] head/brain wo con CLINICAL HISTORY: 68 years-old Male with Stroke evaluation . Acute strokelike symptoms TECHNIQUE: Multiple axial CT images of the head were obtained without contrast. A dose lowering technique was utilized adhering to the principles of ALARA. COMPARISON: CTA head neck of same day, head CT 01/18/2018 FINDINGS: No acute intracranial hemorrhage, midline shift, intracranial mass, hydrocephalus, territorial ischemia or abnormal extra-axial collection. Minimal patchy white matter hypodensities suggest chronic microvascular ischemic disease. The calvarium is intact. Mild mucosal thickening of the ethmoid air cells and left maxillary sinus. Mastoid air cells are clear. Soft tissues are unremarkable. The orbits are within normal limits. IMPRESSION: No acute intracranial abnormality. ACT 112: Negative or not required by law. The above report was generated using voice recognition software. It may contain grammatical, syntax or spelling errors. Electronically signed by: Manuel Suarez M.D. 03/17/2019 6:[address] angio neck with con, CT angio head w con CLINICAL HISTORY: 68 years-old Male with weakness. Acute weakness COMPARISON STUDY: Head CT of same day, CT cervical spine 01/18/2018 TECHNIQUE: Following the IV administration of 116 mL of Optiray 320, CT angiogram of the head and neck was performed from the aortic arch to the skull base. Images are reviewed in the axial, sagittal, and coronal planes. 3-D MIPS images are created and assessed. IV contrast was administered without complication. All measurements were calculated based on NASCET criteria. A dose lowering technique was utilized adhering to the principles of ALARA. CT DOSE: 1620.14 mGy.cm FINDINGS: The imaged opacified pulmonary artery is unremarkable. Bovine morphology of the thoracic aortic arch. Patency of the imaged subclavian arteries. Patent bilateral common carotid arteries. The internal carotid arteries are also widely patent and unremarkable. 5 mm thrombus involves a distal left M2 branch on image 467 of series 4. The right middle and bilateral anterior cerebral arteries are widely patent and unremarkable. There is no abnormal intracranial enhancement identified. Dominant left vertebral artery. The bilateral vertebral arteries, basilar and posterior cerebral arteries are widely patent. Cerebral venous sinuses are also patent. Small layering pleural effusions. No pneumothorax. Multinodular thyroid with a 2.9 x 2.6 cm heterogeneous right thyroid nodule. Mild to moderate mucosal thickening of the maxillary and ethmoid sinuses. Multilevel degenerative changes of the spine. IMPRESSION: 1. 5 mm thrombus involves a distal left M2 branch. 2. Otherwise unremarkable CTA of the head and neck. 3. Multinodular goiter includes a 2.9 x 2.6 cm right thyroid nodule. Findings could be correlated with a follow-up nonemergent thyroid ultrasound. ACT 112: Negative or not required by law. The above report was generated using voice recognition software. It may contain grammatical, syntax or spelling errors. Electronically signed by: Manuel Suarez M.D. 03/17/2019 7:35 PM ECG Data Attestation: I personally reviewed and interpreted this ECG as follows: Indication: + weakness Rate (beats per minute): 128 Rhythm: + atrial fibrillation (with RVR) ECG ST segments: + Nonspecific ST abnormalities (Diffuse) ECG Findings: no PVCs Comparison ECG Date: from (12/18/16) Change: the following changes noted (A-Fib has replaced sinus bradycardia, otherwise no change) Blood Pressure Blood Pressure Findings: Elevated blood pressure Blood Pressure Disposition: further management by hospitalist MDM Narrative The patient is a 68-year-old male who presented to the emergency department for acute neurologic problems. The patient states that this morning when he awoke he was at his normal baseline but then at approximately 9-9 30 this a.m. he started having difficulty speaking. Despite this the patient went to work. He continued to have difficulty speaking until he came home from work this evening. This was noted by his significant other and the patient presented to the em ergency department for an evaluation. Upon arrival to the emergency department the patient had no complaints. He has no focal neurologic deficits. His speech is clear. The patient's blood pressure was stable. The patient was found to be in rapid atrial fibrillation and was treated with IV Cardizem. He was reevaluated multiple times. The patient was not made a stroke alert because he had no symptoms at the time of presentation. CT the head did not show any acute disease but CT angiography the head neck did show an area of distal M2 thrombus. I do not feel this would be amenable to intervention. The patient has no symptoms at this time and I do not feel that he would be a candidate for TPA. I discussed the patient's laboratory and radiographic studies with him and his significant other. I also discussed his case with the on-call [facility] hospitalist group. They have agreed to evaluate the patient in the emergency department for further management disposition. Likely the patient will require further neuro imaging such as MRI of the brain and then decision should be made as to anticoagulation given the patient's ongoing atrial fibrillation. Impression & Plan TIA (transient ischemic attack), Atrial fibrillation with RVR, Aphasia Discharge Plan Visit Data Chief Complaint: Neuro Symptoms/Deficit Stated Complaint: GARBLED SPEECH ALL DAY ED Provider: Eliezer Abbott Discharge Problem: TIA (transient ischemic attack), Atrial fibrillation with RVR, Aphasia Patient Disposition: Being Evaluated by Hospitalist Discharge Instructions Interventions: ED Discharge Assessment Last Done: 03/17/19 22:18 The scribe's documentation has been prepared under my direction and personally reviewed by me in its entirety. I confirm that the note above accurately reflects all work, treatment, procedures, and medical decision making performed by me.
[2019-03-17] MEDS ORDERED: OXYCODONE/ACETAMINOPHEN 10-325 TAB PO PRN (22:47)
[2019-03-17] MEDS ORDERED: PHARMACIST DISCHARGE MED REC CONSULT PRN (22:47)
[2019-03-17] MEDS ORDERED: PROMETHAZINE HCL 12.5 MG in SODIUM CHLORIDE 0.9% 50 ML IV PRN (22:47)
[2019-03-17] MEDS ORDERED: ACETAMINOPHEN 325 MG TAB PO PRN (22:47)
[2019-03-17] MEDS ORDERED: MoRPHine SULFATE 4 MG/ML 1 ML CARP\\VIAL IV PRN (22:47)
[2019-03-18] MEDS ORDERED: Heparin IV Low Dose *NO* Bolus IV STA (03:50)
[2019-03-18] MEDS ORDERED: ALBUMIN 25% 50 ML IV ONE (03:51)
--- NOTE | 2019-03-18 03:55 | Communication Note ---
Date of Service: March 18, 2019 Made aware of initial MRI head result by teleradiologist. 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 No overt hemorrhagic conversion. Case discussed with Dr. Jackson (neurologist on-call). She recommends initiating IV heparin without bolus for thromboembolic prophylaxis. Repeat CT head after 24 hours followed by NOAC. Avoid hypotension as per neurologist. Will relay to AM provider.
[2019-03-18] MEDS: HEPARIN SODIUM/DEXTROSE 25,000 UNITS/500 ML BAG IV SCH (04:30)
[2019-03-18 06:58] LABS: Basophils # (auto) 0.04 K/uL (0-0.2); Basophils % (auto) 0.5 %; Eosinophils # (auto) 0.21 K/uL (0-0.5); Eosinophils % (auto) 2.6 %; Hematocrit (blood only) 38.2 % (42-52); Hemoglobin 13.1 g/dL (14.0-18.0); Immature Granulocytes # (auto) 0.01 K/uL (0.00-0.02); Immature Granulocytes % (auto) 0.1 %; Lymphocytes # (auto) 3.19 K/uL (1.2-3.4); Lymphocytes % (auto) 39.6 %; Mean Corpuscular Hemoglobin 30.8 pg (25-34); Mean Corpuscular Hgb Conc 34.3 g/dL (32-36); Mean Corpuscular Volume 89.9 fL (80-100); Monocytes # (auto) 0.56 K/uL (0.11-0.59); Monocytes % (auto) 6.9 %; Neutrophils # (auto) 4.05 K/uL (1.4-6.5); Neutrophils % (auto) 50.3 %; Platelet Count 226 K/uL (130-400); RDW Coefficient of Variation 13.3 % (11.5-14.5); RDW Standard Deviation 43.8 fL (36.4-46.3); Red Blood Count 4.25 M/uL (4.7-6.1); White Blood Count 8.06 K/uL (4.8-10.8)
--- NOTE | 2019-03-18 07:17 | Magnetic Resonance Report ---
MRI OF THE BRAIN WITHOUT CONTRAST CLINICAL HISTORY: Transient ischemic attack. COMPARISON STUDY: MRI of the brain December 05, 2009. Head CT and CTA of the head March 17, 2019. TECHNIQUE: Utilizing a 1.5 Jo Ann magnet and dedicated coil, multiplanar, multiecho imaging of the bra in was performed without IV contrast. FINDINGS: There are multiple small foci of restricted diffusion within the left temporal, frontal and parietal lobes. The largest is a 9 mm focus within the left insular cortex. There is no mass effect or hemorrhage. Ventricular system is normal. Basilar cisterns are patent. There are no extra axial co llections. No intracranial masses are identified on this unenhanced examination. White matter T2 hype rintense foci suggest small vessel disease. Calvarial signal is normal. Sinus mucosal thickening is n oted. There is a probable right maxillary sinus mucous retention cyst. IMPRESSION: Multiple small acute infarcts within the left frontal, parietal and temporal lobes, lizabeth uring up to 9 mm. No hemorrhage. No mass effect. ACT 112: Negative or not required by law. Electronically signed by: Donald Sr M.D. 03/18/2019 7:15 AM
[2019-03-18 07:37] LABS: BUN Creatinine Ratio 21.8 (10-20); Calcium 8.8 mg/dl (8.5-10.1); Creatinine Clr Calc Pharmacy 94.8 ml/min; Est GFR (African American) 87.7; Est GFR (Non-African American) 75.7; Potassium 4.2 mmol/L (3.5-5.1)
--- NOTE | 2019-03-18 07:51 | Magnetic Resonance Report ---
MR angio head wo con CLINICAL HISTORY: 68 years-old Male presenting with difficulty speaking for 4 hours, concern for stro ke. TECHNIQUE: MR angiography of the head was performed without the use of intravenous contrast using 3-D [id number] technique. 3-D volumetric and/or maximum intensity projection (MIP) images were subse quently reconstructed for review. IV contrast: None. COMPARISON: CTA head from 03/17/2019. FINDINGS: Localizer images: Unremarkable. Anterior circulation: Intracranial portions of the internal carotid arteries patent to the level of t he termini. Anterior cerebral arteries patent. Loss of flow-related enhancement within a focal portio n of an M2/M3 branch of the left middle cerebral artery (MCA). This suggests focal thrombus. Right MC A widely patent. Anterior communicating artery patent. Posterior circulation: Left dominant vertebral artery. Intradural portions of the vertebral arteries patent. Posterior inferior cerebellar arteries patent. Basilar artery patent. Anterior inferior cereb ellar arteries poorly visualized. Superior cerebellar arteries patent. Posterior cerebral arteries pa tent. Posterior communicating arteries hypoplastic or aplastic. IMPRESSION: 1. Redemonstration of focal thrombus within an M2/M3 branch of the left MCA. Findings are unchanged from most recent CTA head. 2. Remainder vasculature patent. These findings were discussed with Dr. Angeles by Dr. Flanagan on 03/18/2019 2:55 AM. ACT 112: Negative or not required by law. Electronically signed by: Vincent Bach M.D. 03/18/2019 7:50 AM
[2019-03-18] MEDS ORDERED: METOPROLOL TARTRATE 25 MG TAB PO SCH (08:00)
[2019-03-18] MEDS ORDERED: ENOXAPARIN INJ 40 MG/0.4 ML SYR SQ SCH (09:00)
--- NOTE | 2019-03-18 09:56 | Cardiology Consultation ---
Date of Consultation March 18, 2019 Assessment & Plan (1) Atrial fibrillation with RVR: Asymptomatic. Recommend rate control starting with metoprolol succinate then adding digoxin if needed down the road. Recommend initiation of Coumadin anticoagulation to prevent stroke and systemic embolism in a patient with nonvalvular atrial fibrillation, [id number] Score now 3 points. Since DOAC's are cost prohibitive, recommend initiation and utilization of retirement Coumadin anticoagulation with an INR goal of 2.0 to 3.0 when OK with Neurology. Supervising Physician Co-Signing Physician Notes Supervising Physician Attestation: I have personally performed a history and physical examination on the patient. I agree with the physician human resources executive assistant's findings and plan as documented with the following additions. Subjective: Patient feeling comfortable at rest. 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 Case discussed with neurology, will plan to repeat CT scan in a 24 to 40-hour interval, and if there is no hemorrhagic conversion will start anticoagulation with Coumadin. Patient previously states that treatment with a direct oral anticoagulant Eliquis was prohibitively expensive. -Start metoprolol succinate. We will reconsider use of LILIAM inhibitor or angiotensin receptor makenzie as his hospital stay continues based on his blood pressure response. Shimon Angel DO History of Present Illness Reason for Consultation: Atrial fibrillation Requesting Physician: Evan Attending Physician: Dara History of Present Illness Mr. Shah is a very pleasant 68-year-old male who is followed sporadically by Dr. Gabino Zaldivar due to history of past paroxysmal atrial fibrillation and flutter. The patient was last evaluated by Dr. Zaldivar on December 20, 2018 at which time he presented with asymptomatic atrial fibrillation. Recommendations at that time included discontinuation of sotalol, initiation of metoprolol succinate at 50 mg twice per day. Patient noted Xarelto was cost prohibitive and requested discontinuation of anticoagulation. Mr. Shah notes "getting my wires crossed" with medications, discontinuing all medications after evaluation with Dr. Zaldivar. Unfortunately, yesterday around 9 AM the patient started exp eriencing trouble talking. 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 He continued to work his shift until 4:30 at which time he returned home, informed his , and was then brought to the [facility] Emergency Room. Work-up in the emergency room included a CT scan of the head without contrast which showed no acute intracranial abnormality then a CTA of the head and neck CT of the neck which revealed a 5 mm thrombus involving the distal left M2 branch. EKG revealed atrial fibrillation with a rapid ventricular response, asymptomatic, for which he was given 20 mg of IV Cardizem and normal saline solution at 50 mL's per hour. Continuous telemetry monitoring reveals atrial fibrillation ranging from approximately 100 to 160 bpm. Occasional PVCs observed including 3 to 4 beat runs which may represent atrial fibrillation with aberrant conduction. His speech has retuned to normal. No headache. No unilateral arm or leg complaints. No exertional chest pain. No tachypalpitations. No new or worsening dyspnea, stable exertional dyspnea. No resting or nocturnal dyspnea. Mild chronic stable lower extremity peripheral edema, lymphedema, dependent. Notes losing approximately 100 pounds, planned through dietary changes. No orth opnea or PND. No fevers or chills. No melena or hematochezia. Allergies Allergy/AdvReac Type Severity Reaction Status Date / Time No Known Allergies Allergy Unverified 03/17/19 18:22 Home Medications Home Medications Medication Instructions Recorded Confirmed Type oxycodone-acetaminophen [Percocet] 1 tab PO Q8 PRN 03/17/19 03/17/19 History Patient History Medical History Chronic atrial fibrillation Chronic pain DVT (deep venous thrombosis) (Chronic) "provoked, completed Coumadin therapy" Dyslipidemia (Chronic) Goiter Pulmonary embolism (Chronic) "provoked, completed Coumadin therapy" Surgical History H/O cervical discectomy (Chronic) History of tonsillectomy and adenoidectomy (Chronic) Status post total knee replacement, left (Chronic) Status post total knee replacement, right (Chronic) Family History Father Coronary heart disease Social History Preferred Language: Grenadian Communication Ability: Effective Assistant 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: No Beliefs That Will Affect Care: None Current Living Situation: Family Other Information That Helps Us Care for You: No Feels Safe at Home: Yes Safety Concerns: Feels Safe At This Time Smoking Status: Unknown if ever smoked Hx Alcohol Use: No Hx Substance Use: No Review of Systems Review of Systems: All systems reviewed & are unremarkable except as noted in HPI & below Constitutional: + weight loss; no fever and no chills Eyes: no problem reported Ear, Nose, Mouth, Throat: no dysphagia Respiratory: + dyspnea on exertion; no cough and no hemoptysis Cardiovascular: + dyspnea on exertion and + edema; no orthopnea, no palpitations, no syncope and no claudication Gastrointestinal: no blood in stools Genitourinary: + nocturia; no hematuria Integumentary: no rash Neurologic: + tremor(s) and + abnormal speech; no lack of coordination, no abnormal movements, no seizure-like activity, no headache(s) and no memory loss Psychiatric: no problem reported Endocrine: no polydipsia and no polyphagia Hematologic / Lymphatic: no unexplained weight loss Physical Exam Physical Exam: General: A&Ox3. NAD. HEENT: Normocephalic. Atraumatic. PER. Conjunctiva pink, sclera clear. Neck: No carotid bruits. No JVD. No HJR. Heart: Irregularly irregulary around 100 bpm. No murmur. No rub. No gallop. PMI is nondisplaced. Lungs: Clear to auscultation. Abdomen: +BS. Soft. Nontender. No masses or organomegaly. Extremities: Mild lymphedema/edema. No clubbing. No cyanosis. Limited neurological examination is without focal deficits. Pulses: radial=2/4, posterior tibial=2/4. Results & Data Vital Signs (Past 12 Hours) Vital Signs Temp Pulse Pulse Resp BP BP Pulse Ox 03/18/19 08:59 101 H 03/18/19 07:13 36.5 C 102 H 20 133/85 95 03/18/19 03:26 36.6 C 84 18 123/80 97 03/17/19 23:19 36.5 C 92 H 18 132/86 95 03/17/19 22:30 36.7 C 101 H 18 145/99 H 03/17/19 22:00 90 18 130/73 94 Laboratory Results Laboratory Results - last 24 hr 03/17/19 03/17/19 03/17/19 17:59 17:59 17:59 WBC 9.00 RBC 4.55 L Hgb 14.3 Hct 40.9 L MCV 89.9 MCH 31.4 MCHC 35.0 RDW Std Deviation 43.4 RDW Coeff of Nayla 13.3 Plt Count 244 MPV 10.1 Immature Gran % (Auto) 0.1 Neut % (Auto) 60.0 Lymph % (Auto) 31.3 [place] % (Auto) 7.1 Eos % (Auto) 1.3 Baso % (Auto) 0.2 Immature Gran # (Auto) 0.01 Neut # (Auto) 5.39 Lymph # (Auto) 2.82 [place] # (Auto) 0.64 H Eos # (Auto) 0.12 Baso # (Auto) 0.02 PT 10.9 INR 1.1 APTT 24.4 PTT Ratio 0.9 Sodium 140 Potassium Chloride 110 H Carbon Dioxide 24 Anion Gap 6.0 BUN 20 H Creatinine 1.14 POC Creatinine Est Cr Clr Drug Dosing 85.3 Est GFR ( Amer) 76.7 Est GFR (Non-Af Amer) 66.2 BUN/Creatinine Ratio 17.8 Glucose 101 H Calcium 8.9 Magnesium Total Bilirubin 1.8 H AST ALT 30 Alkaline Phosphatase 66 Troponin I < 0.015 NT-Pro-B Natriuret Pep Total Protein 7.7 Albumin 3.7 Globulin 4.0 Albumin/Globulin Ratio 0.9 Triglycerides Cholesterol LDL Cholesterol, Calc VLDL Cholesterol, Calc HDL Cholesterol Cholesterol/HDL Ratio TSH Anti-Cardiolipin IgG Ab 03/17/19 03/17/19 03/18/19 18:04 19:44 06:25 WBC RBC Hgb Hct MCV MCH MCHC RDW Std Deviation RDW Coeff of Nayla Plt Count MPV Immature Gran % (Auto) Neut % (Auto) Lymph % (Auto) [place] % (Auto) Eos % (Auto) Baso % (Auto) Immature Gran # (Auto) Neut # (Auto) Lymph # (Auto) [place] # (Auto) Eos # (Auto) Baso # (Auto) PT INR APTT PTT Ratio Sodium Potassium 4.2 Chloride Carbon Dioxide Anion Gap BUN Creatinine POC Creatinine 1.0 Est Cr Clr Drug Dosing Est GFR ( Amer) Est GFR (Non-Af Amer) BUN/Creatinine Ratio Glucose Calcium Magnesium 2.0 Total Bilirubin AST 24 ALT Alkaline Phosphatase Troponin I NT-Pro-B Natriuret Pep 2606 H Total Protein Albumin Globulin Albumin/Globulin Ratio Triglycerides Cholesterol LDL Cholesterol, Calc VLDL Cholesterol, Calc HDL Cholesterol Cholesterol/HDL Ratio TSH 4.270 Anti-Cardiolipin IgG Ab Pending 03/18/19 03/18/19 06:25 06:25 WBC 8.06 RBC 4.25 L Hgb 13.1 L Hct 38.2 L MCV 89.9 MCH 30.8 MCHC 34.3 RDW Std Deviation 43.8 RDW Coeff of Nayla 13.3 Plt Count 226 MPV 10.0 Immature Gran % (Auto) 0.1 Neut % (Auto) 50.3 Lymph % (Auto) 39.6 [place] % (Auto) 6.9 Eos % (Auto) 2.6 Baso % (Auto) 0.5 Immature Gran # (Auto) 0.01 Neut # (Auto) 4.05 Lymph # (Auto) 3.19 [place] # (Auto) 0.56 Eos # (Auto) 0.21 Baso # (Auto) 0.04 PT INR APTT PTT Ratio Sodium 141 Potassium 4.2 Chloride 111 H Carbon Dioxide 25 Anion Gap 5.0 BUN 22 H Creatinine 1.02 POC Creatinine Est Cr Clr Drug Dosing 94.8 Est GFR ( Amer) 87.7 Est GFR (Non-Af Amer) 75.7 BUN/Creatinine Ratio 21.8 H Glucose 93 Calcium 8.8 Magnesium Total Bilirubin AST ALT Alkaline Phosphatase Troponin I NT-Pro-B Natriuret Pep Total Protein Albumin Globulin Albumin/Globulin Ratio Triglycerides 65 Cholesterol 134 LDL Cholesterol, Calc 77 VLDL Cholesterol, Calc 13 HDL Cholesterol 44 Cholesterol/HDL Ratio 3 TSH Anti-Cardiolipin IgG Ab Diagnostic Findings EKG on March 17, 2019 was of poor technical quality, appearing to demonstrate atrial fibrillation with a ventricular rate of 128 bpm. Telemetry: See above Resting echocardiogram: Pending interpretation
[2019-03-18 10:54] LABS: Partial Thromboplastin Time 28.2 Seconds (21.0-31.0)
[2019-03-18] MEDS: METOPROLOL SUCC 25MG EXT REL TAB PO SCH ×2 (11:10→20:43)
--- NOTE | 2019-03-18 11:48 | Electrocardiogram Report ---
Test Reason : Blood Pressure : / mmHG Vent. Rate : 128 BPM Atrial Rate : 234 BPM P-R Int : 000 ms QRS Dur : 088 ms QT Int : 342 ms P-R-T Axes : 000 085 034 degrees QTc Int : 499 ms Poor data quality, interpretation may be adversely affected Atrial fibrillation with rapid ventricular response Nonspecific T wave abnormality Abnormal ECG When compared with ECG of 18-DEC-2016 07:09, Atrial fibrillation has replaced Sinus rhythm Vent. rate has increased BY 74 BPM Nonspecific T wave abnormality now evident in Lateral leads Confirmed by Eliezer Rodriguez ([id number]) on 03/18/2019 11:48:28 AM Referred By: REFERRED SELF Confirmed By:Eliezer Rodriguez
[2019-03-18] MEDS ORDERED: HEPARIN IV BOLUS 4,500 UNITS in SYRINGE 0 ML IV ONE ×2 (13:00→20:15)
--- NOTE | 2019-03-18 15:51 | Neurology Consultation ---
Date of Consultation March 18, 2019 Assessment & Plan (1) Stroke: 1. MRI - multiple acute infarcts 2. CTA 5 mm thrombus left M1 branch 3. TTE- EF 25-30 % - no ASD 4. cardiology would like to start coumadin 5. start heparin gtts for [address] head if no hemorrhagic conversion ok to transition to coumadin 6. PT/OT speech no current needs 7. optimize HTN, HLD, LDL <70 (2) Chronic atrial fibrillation: Supervising Physician Co-Signing Physician Notes I have seen and discussed above patient with Dr Carmela Jackson, neurology. Pt seen and examined. hx reviewed, images reviewed. Neuro exam is normal. afib with L m1 thrombus and patchy multiple cortical L mca infarcts. Agree with transition to anticoagulants as above provided CT head at 24 hours shows no hemorhhagic transformation. Check lipids, goal LDL <70. Will sign off. MURTAZA Jackson MD History of Present Illness Reason for Consultation: stroke Requesting Physician: Genet Diamond MD Attending Physician: Genet Diamond MD History of Present Illness Alvin is a 68 year old male with PMH- chronic AFib, goiter, chronic pain presented to [facility] ED with c/o "garbled speech". He was at work and having difficulty with his words and using wrong words and also questionable slurred speech. When he came home around 4p his noted he was still having trouble producing words and some words seemed slurred. This last approx. 7 hours and at the ED it had resolved. He is know to Dr Zaldivar -cardiology. ON 12/2018 he was switched from sotalol to metoprolol succinate 50mg BID. Had CHADSVASC score of 1 and stopped Xarelto and stopped taking it in 12/2018. He also stopped taking metoprolol in 02/2019 because he states he didn't think he needed it anymore. Dr Angel saw him and wants to start coumadin because his insurance will not pay for Xarelto. Denies CP, SOB, abdominal pain, one sided weakness, numbness tingling N, V, vision changes, new bowel or bladder issues, falls. Allergies Allergy/AdvReac Type Severity Reaction Status Date / Time No Known Allergies Allergy Unverified 03/17/19 18:22 Home Medications Home Medications Medication Instructions Recorded Confirmed Type oxycodone-acetaminophen [Percocet] 1 tab PO Q8 PRN 03/17/19 03/17/19 History Patient History Medical History Chronic atrial fibrillation Chronic pain DVT (deep venous thrombosis) (Chronic) "provoked, completed Coumadin therapy" Dyslipidemia (Chronic) Goiter Pulmonary embolism (Chronic) "provoked, completed Coumadin therapy" Surgical History H/O cervical discectomy (Chronic) History of tonsillectomy and adenoidectomy (Chronic) Status post total knee replacement, left (Chronic) Status post total knee replacement, right (Chronic) Family History Father Coronary heart disease Social History Preferred Language: Pashto Communication Ability: Effective Floor Person Required: No Beliefs That Will Affect Care: None Current Living Situation: Family Other Information That Helps Us Care for You: No Feels Safe at Home: Yes Safety Concerns: Feels Safe At This Time Smoking Status: Unknown if ever smoked Hx Alcohol Use: No Hx Substance Use: No Physical Exam Physical Exam: Physical Exam: Constitutional: appearance over nourished, healthy Ears, Nose, Mouth and Throat: mucous membranes moist, no injection and skin normal, eyes normal Cardiovascular: irregular Respiratory: course breath sounds Musculoskeletal: none pitting peripheral edema and good distal pulses Skin: no stigmata of neurocutaneous disease noted and normal and intact Eyes: extraocular muscles intact (EOMI) and pupils equal, round and reactive to light (PERRL), gross visual ojeda intact NEUROLOGIC EXAMINATION: Mental status: Alert and interactive Oriented to full date and location Oriented to person Speech fluent with no evidence of aphasia Cranial Nerves smile eye brow raise symmetric Reflexes: Deep tendon reflexes were symmetrical and graded 2/5. down going toes. Sensory: intact to light and cool touch Coordination: finger to nose, rapid hand movement intact Gait/Stance: Posture lying in bed Motor: Negative for pronator drift of out stretched arms with eyes closed. Strength: biceps triceps hand guard captain 5/5 bilaterally, hip flex plantar flex ext 5/5 bilaterally Results & Data Vital Signs (Past 12 Hours) Vital Signs Temp Pulse Pulse Resp BP Pulse Ox 03/18/19 15:29 37.2 C 95 H 18 119/71 94 03/18/19 11:44 36.6 C 91 H 19 121/83 97 03/18/19 08:59 101 H 03/18/19 07:13 36.5 C 102 H 20 133/85 95 Laboratory Results Abnormal lab results 03/17/19 03/17/19 03/17/19 Range/Units 17:59 17:59 19:44 RBC 4.55 L (4.7-6.1) M/uL Hgb (14.0-18.0) g/dL Hct 40.9 L (42-52) % [place] # (Auto) 0.64 H (0.11-0.59) K/uL Chloride 110 H (98-107) mmol/L BUN 20 H (7-18) mg/dl BUN/Creatinine Ratio (10-20) Glucose 101 H (70-99) mg/dl Total Bilirubin 1.8 H (0.2-1) mg/dl NT-Pro-B Natriuret Pep 2606 H (0-900) pg/ml 03/18/19 03/18/19 Range/Units 06:25 06:25 RBC 4.25 L (4.7-6.1) M/uL Hgb 13.1 L (14.0-18.0) g/dL Hct 38.2 L (42-52) % [place] # (Auto) (0.11-0.59) K/uL Chloride 111 H (98-107) mmol/L BUN 22 H (7-18) mg/dl BUN/Creatinine Ratio 21.8 H (10-20) Glucose (70-99) mg/dl Total Bilirubin (0.2-1) mg/dl NT-Pro-B Natriuret Pep (0-900) pg/ml Diagnostic Findings CXR- Cardiomegaly with pulmonary vascular congestion. Bibasilar densities suggest atelectasis. CT head- No acute intracranial abnormality. CTA head/neck- 5 mm thrombus involves a distal left M2 branch. Otherwise unremarkable CTA of the head and neck. Multinodular goiter includes a 2.9 x 2.6 cm right thyroid nodule. Findings could be correlated with a follow-up nonemergent thyroid ultrasound. MRI brain-Multiple small acute infarcts within the left frontal, parietal and temporal lobes, measuring up to 9 mm. No hemorrhage. No mass effect. MRA head- Redemonstration of focal thrombus within an M2/M3 branch of the left MCA. Findings are unchanged from most recent CTA head. Remainder vasculature patent.
--- NOTE | 2019-03-18 17:17 | Hospitalist Progress Note ---
Date of Service March 18, 2019 Assessment & Plan (1) Stroke: Present on admission with slurred speech CT head showed no acute intracranial abnormality. CTA head/Neck showed 5 mm thrombus involves a distal left M2 branch. MRI brain multiple small acute infarcts within the left frontal, parietal and temporal lobes, measuring up to 9 mm. MRA head showed redemonstration of focal thrombus within an M2/M3 branch of the left MCA. Starting on heparin drip Neuro on board case discussed with neurology that recommended to continue heparin drip then repeat CT head tomorrow to r/o any bleeding If CT head negative, can transition to coumadin Continue monitor closely in tele (2) Atrial fibrillation with RVR: Chronic atrial fibrillation Found to be in Afib with RVR with HR 140 Stopped taking Xarelto in 12/2018 due to cost Self stopped metoprolol succinate in 02/2019 Received IV cardizem 20mg x1 in the ER Continue Metoprolol 25mg PO BID Continue Heparin drip Ok to start on coumadin tomorrow if repeat CT head negative as per Neuro Echo show severe global hypokinesis of the left ventricle. Left ventricle systolic function is severely reduced. Ejection fraction 25 to 30% Continue monitor in tele (3) Chronic pain: Chronic neck, back, knee pain On Percocet prn Disposition Continue monitor in Tele Subjective Pt was seen and examined Lying in bed with no distress with friend at bedside Pt said that his speech is back to normal Denies any numbness, weakness, chest pain, palpitation, dizziness and SOB Physical Exam Physical Exam: General- No acute distress Head- atraumatic Eyes- PERRL, EOMI, ENT- oropharynx clear Neck- supple, no JVD Lungs- clear to auscultation Heart- irregular rhythm; no murmur Abdomen- normal bowel sounds, soft, nontender Extremities- no calf tenderness Neuro- alert, oriented x 3; PERRL, EOMI; no facial palsy; no dysarthria Skin- warm & dry Results & Data ([facility]) Vital Signs (Past 12 Hours) Vital Signs Temp Pulse Pulse Resp BP Pulse Ox 03/18/19 16:00 108 H 03/18/19 15:29 37.2 C 95 H 18 119/71 94 03/18/19 11:44 36.6 C 91 H 19 121/83 97 03/18/19 08:59 101 H 02/04/20 07:13 36.5 C 102 H 20 133/85 95
[2019-03-18 19:52] LABS: Partial Thromboplastin Ratio 1.3; Partial Thromboplastin Time 34.8 Seconds (21.0-31.0)
[2019-03-19] MEDS: HEPARIN SODIUM/DEXTROSE 25,000 UNITS/500 ML BAG IV SCH ×2 (00:17→16:03)
[2019-03-19 02:46] LABS: Partial Thromboplastin Ratio 1.4; Partial Thromboplastin Time 37.9 Seconds (21.0-31.0)
[2019-03-19] MEDS ORDERED: HEPARIN IV BOLUS 4,500 UNITS in SYRINGE 0 ML IV ONE (02:54)
[2019-03-19] MEDS ORDERED: ALBUMIN 25% 50 ML IV ONE (03:29)
[2019-03-19] MEDS ORDERED: MAGNESIUM SULFATE / D5W 1 GM/100 ML BAG IV ONE (03:30)
[2019-03-19] MEDS ORDERED: METOPROLOL SUCC 25MG EXT REL TAB PO SCH (03:30)
[2019-03-19 03:58] LABS: Basophils # (auto) 0.02 K/uL (0-0.2); Basophils % (auto) 0.2 %; Eosinophils # (auto) 0.16 K/uL (0-0.5); Eosinophils % (auto) 1.8 %; Hematocrit (blood only) 39.5 % (42-52); Hemoglobin 13.4 g/dL (14.0-18.0); Immature Granulocytes # (auto) 0.01 K/uL (0.00-0.02); Immature Granulocytes % (auto) 0.1 %; Lymphocytes # (auto) 3.27 K/uL (1.2-3.4); Lymphocytes % (auto) 37.5 %; Mean Corpuscular Hemoglobin 31.1 pg (25-34); Mean Corpuscular Hgb Conc 33.9 g/dL (32-36); Mean Corpuscular Volume 91.6 fL (80-100); Mean Platelet Volume 10.1 fL (7.4-10.4); Monocytes # (auto) 0.67 K/uL (0.11-0.59); Monocytes % (auto) 7.7 %; Neutrophils % (auto) 52.7 %; Platelet Count 220 K/uL (130-400); RDW Coefficient of Variation 13.4 % (11.5-14.5); RDW Standard Deviation 44.5 fL (36.4-46.3); Red Blood Count 4.31 M/uL (4.7-6.1); White Blood Count 8.73 K/uL (4.8-10.8)
[2019-03-19 04:14] LABS: BUN Creatinine Ratio 19.6 (10-20); Calcium 8.5 mg/dl (8.5-10.1); Creatinine Clr Calc Pharmacy 88.7 ml/min; Est GFR (Non-African American) 69.9; Magnesium 1.9 mg/dl (1.8-2.4)
--- NOTE | 2019-03-19 07:10 | CT Scan Report ---
HEAD CT NONCONTRAST CT DOSE: 614.27 mGy.cm HISTORY: Difficulty speaking. Follow-up acute infarct. TECHNIQUE: Multiaxial CT images of the head were performed without the use of intravenous contrast. A utomated exposure control was utilized for this study. A dose lowering technique was utilized adheri ng to the principles of ALARA. Comparison: Brain MRI 03/18/2019. Findings: Mild mucosal thickening within the ethmoid air cells and left sphenoid sinus. The patient's punctate left temporal and frontal lobe infarcts are now well evaluated by this modality. Dense left MCA consistent with thrombosis. This remains unchanged. The calvarium and skull base are intact. The ventricles and sulci are within normal limits. There is no mass, hematoma, midline shift, or acute i nfarct. Impression: Left MCA thrombosis again noted. The patient's small left-sided acute infarcts are not well visualize d at this time. No evidence for hemorrhagic transformation. ACT 112: Negative or not required by law. Electronically signed by: Fam Rodríguez M.D. 03/19/2019 7:08 AM
[2019-03-19 09:19] LABS: Partial Thromboplastin Ratio 2.2
--- NOTE | 2019-03-19 09:23 | Cardiology Progress Note ---
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 Continue rate control with metoprolol succinate, increasing the dose to 50 mg twice per day starting this morning Add digoxin if unable to titrate metoprolol due to hypotension Initiate Coumadin anticoagulation tonight (DOAC's cost prohibitive), utilized to prevent stroke and systemic embolism in a patient with nonvalvular atrial fibrillation, [id number] Score 4 points. INR Goal 2.0 to 3.0. Add low-dose lisinopril down the road. Outpatient pharmacological stress test to be arranged at some point. Supervising Physician Co-Signing Physician Notes Supervising Physician Attestation: I have personally performed a history and physical examination on the patient. I agree with the physician commercial real estate assistant's findings and plan as documented with the following additions. Subjective: Patient feeling well without complaints. Atrial fibrillation at 90 bpm at rest noted on telemetry. Exam: Irregular rhythm Data: CT with ongoing findings of left middle cerebral artery territory thrombus without hemorrhagic conversion Assessment and Plan: Cardioembolic stroke related to atrial fibrillation, newly diagnosed left ventricular systolic dysfunction -Continue with medications as outlined in Mr. johns does note. Start Coumadin tonight, cautious heparin to Coumadin bridge. DVT prophylaxis: He is on systemic anticoagulation with heparin infusion. Shimon Angel, Subjective Patient seen and examined. Chart, medications, and telemetry reviewed. No new complaints or concerns. No speech issues, visual changes, headache, unilateral arm or leg weakness. No chest pain. No palpitations. No new or worsening shortness of breath. No orthopnea or PND. Stable mild lower extremity peripheral edema aided by elevation. No dizziness or near syncope. No fevers or chills. Continuous telemetry monitoring reveals atrial fibrillation ranging from 90 to 180 bpm. Resting heart rates appear to be 100 to 120 bpm. Occasional PVCs or aberrantly conducted complexes. Review of Systems Review of Systems: All systems reviewed & are unremarkable except as noted in HPI & below Physical Exam Physical Exam: General: A&Ox3. NAD. HEENT: Normocephalic. Atraumatic. PER. Conjunctiva pink, sclera clear. Neck: No carotid bruits. No JVD. No HJR. Heart: Irregularly irregulary around 100 bpm. No murmur. No rub. No gallop. PMI is nondisplaced. Lungs: Clear to auscultation. Abdomen: +BS. Soft. Nontender. No masses or organomegaly. Extremities: Mild lymphedema/edema. No clubbing. No cyanosis. Limited neurological examination is without focal deficits. Pulses: radial=2/4, posterior tibial=2/4. Results & Data Vital Signs (Past 12 Hours) Vital Signs Temp Pulse Pulse Resp BP BP Pulse Ox 03/19/19 08:00 88 03/19/19 07:08 36.6 C 90 18 122/75 93 03/19/19 03:26 36.7 C 120 H 18 131/75 97 03/18/19 23:43 36.7 C 83 19 122/76 98 03/18/19 23:27 107 H Laboratory Results Laboratory Results - last 24 hr 03/18/19 03/18/19 03/19/19 10:38 19:08 02:21 WBC RBC Hgb Hct MCV MCH MCHC RDW Std Deviation RDW Coeff of Nayla Plt Count MPV Immature Gran % (Auto) Neut % (Auto) Lymph % (Auto) [place] % (Auto) Eos % (Auto) Baso % (Auto) Immature Gran # (Auto) Neut # (Auto) Lymph # (Auto) [place] # (Auto) Eos # (Auto) Baso # (Auto) APTT 28.2 34.8 H 37.9 H PTT Ratio 1.0 1.3 1.4 Sodium Potassium Chloride Carbon Dioxide Anion Gap BUN Creatinine Est Cr Clr Drug Dosing Est GFR ( Amer) Est GFR (Non-Af Amer) BUN/Creatinine Ratio Glucose Calcium Magnesium 03/19/19 03/19/19 03/19/19 03:40 03:40 03:44 WBC 8.73 RBC 4.31 L Hgb 13.4 L Hct 39.5 L MCV 91.6 MCH 31.1 MCHC 33.9 RDW Std Deviation 44.5 RDW Coeff of Nayla 13.4 Plt Count 220 MPV 10.1 Immature Gran % (Auto) 0.1 Neut % (Auto) 52.7 Lymph % (Auto) 37.5 [place] % (Auto) 7.7 Eos % (Auto) 1.8 Baso % (Auto) 0.2 Immature Gran # (Auto) 0.01 Neut # (Auto) 4.60 Lymph # (Auto) 3.27 [place] # (Auto) 0.67 H Eos # (Auto) 0.16 Baso # (Auto) 0.02 APTT Cancelled PTT Ratio Cancelled Sodium 140 Potassium 4.0 Chloride 110 H Carbon Dioxide 23 Anion Gap 7.0 BUN 21 H Creatinine 1.09 Est Cr Clr Drug Dosing 88.7 Est GFR ( Amer) 81.0 Est GFR (Non-Af Amer) 69.9 BUN/Creatinine Ratio 19.6 Glucose 108 H Calcium 8.5 Magnesium 1.9 03/19/19 08:50 WBC RBC Hgb Hct MCV MCH MCHC RDW Std Deviation RDW Coeff of Nayla Plt Count MPV Immature Gran % (Auto) Neut % (Auto) Lymph % (Auto) [place] % (Auto) Eos % (Auto) Baso % (Auto) Immature Gran # (Auto) Neut # (Auto) Lymph # (Auto) [place] # (Auto) Eos # (Auto) Baso # (Auto) APTT Pending PTT Ratio Pending Sodium Potassium Chloride Carbon Dioxide Anion Gap BUN Creatinine Est Cr Clr Drug Dosing Est GFR ( Amer) Est GFR (Non-Af Amer) BUN/Creatinine Ratio Glucose Calcium Magnesium Diagnostic Findings March 18, 2019 TTE Interpretation Summary ([facility], Dr. Angel): Atrial fibrillation with a mildly elevated ventricular rate ranging from 95 to 110 bpm noted during echocardiography. Mild concentric LVH. Severe global hypokinesis of the left ventricle. Severely reduced left ventricular systolic function. Ejection fraction 25 to 30%. Mild mitral regurgitation. When compared to the prior echo from September 2016, there was an interval decline in left ventricular ejection fraction. Follow-up CT scan of the head obtained earlier this morning revealed no evidence of hemorrhagic transformation. The left MCA thrombus was again observed. The small left-sided acute infarcts were not well visualized.
[2019-03-19 09:26] LABS: Partial Thromboplastin Time 60.6 Seconds (21.0-31.0)
[2019-03-19] MEDS: METOPROLOL SUCC 50MG EXT REL TAB PO SCH ×2 (10:58→20:26)
[2019-03-19] MEDS: WARFARIN SOD 5 MG TAB PO SCH (16:03)
--- NOTE | 2019-03-19 17:19 | Hospitalist Progress Note ---
Date of Service March 19, 2019 Assessment & Plan (1) Stroke: Present on admission with slurred speech CT head showed no acute intracranial abnormality. CTA head/Neck showed 5 mm thrombus involves a distal left M2 branch. MRI brain multiple small acute infarcts within the left frontal, parietal and temporal lobes, measuring up to 9 mm. MRA head showed redemonstration of focal thrombus within an M2/M3 branch of the left MCA. Starting on heparin drip and Coumadin has been started as well from 03/19/2019 Neuro on board-appreciate input and recommendation Continue monitor closely in tele Denies any symptoms, continue current medications (2) Atrial fibrillation with RVR: Chronic atrial fibrillation Found to be in Afib with RVR with HR 140 Stopped taking Xarelto in 12/2018 due to cost Self stopped metoprolol succinate in 02/2019 Received IV cardizem 20mg x1 in the ER Continue Metoprolol 25mg PO BID Appreciate cardiology input and recommendation Echo-atrial fibrillation with mildly elevated ventricular rates, mild concentric LVH, severe global hypokinesis with EF of 25 to 30%, mild TR and compared to the prior study dated 10/10/2016 there has been interval decline in the LV function Has been on heparin and Coumadin Rate seems to be controlled (3) Chronic pain: Chronic neck, back, knee pain On Percocet prn Disposition Continue monitor in Tele Subjective 03/19/2019 The patient was seen and examined in telemetry unit He has been feeling a lot better and denies any significant symptoms No chest pain, palpitation, shortness of breath, no abdominal pain nausea and or vomiting Denies any numbness and/or tingling involving any of the extremities Review of Systems Review of Systems: All systems reviewed and are unremarkable except as noted below Physical Exam Physical Exam: Sitting on a chair without any acute symptoms Constitutional: well developed, well nourished and + obese; no acute distress and not ill appearing Eyes: PERRL, conjunctivae normal, anicteric sclerae ENMT: external ear and nose normal, oropharynx normal Neck: trachea midline, no thyromegaly Respiratory: normal respiratory effort; no respiratory distress Auscultation: lungs clear to auscultation bilaterally Cardiovascular: Rate/Rhythm: + tachycardic; + abnormal rate and + abnormal rhythm Gastrointestinal (Abdomen): Inspection/Auscultation: abdomen normal to inspection and normal bowel sounds Percussion/Palpation: abdomen soft; abdomen nontender Musculoskeletal: No acute arthritis in any joints Neurologic: moves all extremities; no focal motor deficits Results & Data ([facility]) Vital Signs (Past 12 Hours) Vital Signs Temp Pulse Pulse Resp BP BP Pulse Ox 03/19/19 15:24 76 03/19/19 15:13 36.5 C 86 18 129/75 97 03/19/19 11:11 36.5 C 99 H 20 139/87 98 03/19/19 08:00 88 03/19/19 07:08 36.6 C 90 18 122/75 93 Laboratory Results Short CBC 03/19/19 Range/Units 03:40 WBC 8.73 (4.8-10.8) K/uL Hgb 13.4 L (14.0-18.0) g/dL Hct 39.5 L (42-52) % Plt Count 220 (130-400) K/uL BMP 03/19/19 03:40 Sodium 140 Potassium 4.0 Chloride 110 H Carbon Dioxide 23 BUN 21 H Creatinine 1.09 Glucose 108 H Calcium 8.5 Medications Administered Current Inpatient Medications Acetaminophen (Tylenol) 650 mg PO Q4H PRN PRN Reason: Pain or Fever Stop: 04/16/19 22:46 Promethazine HCl 12.5 mg/ (Sodium Chloride) 50.5 mls @ 202 mls/hr IV Q6H PRN PRN Reason: Nausea And Vomiting Stop: 04/16/19 22:46 Heparin Sodium/Dextrose (Heparin Sodium/Dextrose) 25,000 units in 500 mls @ 32 mls/hr IV .[id number] [facility]; Protocol Stop: 04/17/19 03:59 Last Admin: 03/19/19 16:03 Dose: 1,600 units/hr, 32 mls/hr Documented by: Metoprolol Succinate (Toprol Xl) 50 mg PO BID [facility] Stop: 04/18/19 09:29 Last Admin: 03/19/19 10:58 Dose: 50 mg Documented by: Miscellaneous Information (Pharmacist Discharge Med Rec Consult) 1 ea N/A UD PRN PRN Reason: Consult Stop: 04/16/19 22:46 Morphine Sulfate (Morphine Sulfate) 4 mg IV Q4H PRN PRN Reason: Pain Stop: 03/31/19 22:46 Oxycodone/Acetaminophen (Percocet 10/325mg) 1 tab PO Q8 PRN PRN Reason: Pain Stop: 03/31/19 22:46 Warfarin Sodium (Coumadin) 5 mg PO DAILY@1600 MARGIE Stop: 04/18/19 15:59 Last Admin: 03/19/19 16:03 Dose: 5 mg Documented by:
[2019-03-19] MEDS: ATORVASTATIN 40 MG TAB PO SCH (18:22)
[2019-03-20 05:48] LABS: INR 1.1 (0.9-1.1); Prothrombin Time 11.3 Seconds (9.0-12.0)
[2019-03-20 05:56] LABS: BUN Creatinine Ratio 20.9 (10-20); Calcium 8.6 mg/dl (8.5-10.1); Creatinine Clr Calc Pharmacy 95.6 ml/min; Est GFR (African American) 88.8; Est GFR (Non-African American) 76.6; Magnesium 2.3 mg/dl (1.8-2.4); Potassium 4.1 mmol/L (3.5-5.1)
[2019-03-20 05:59] LABS: Partial Thromboplastin Time 54.1 Seconds (21.0-31.0)
[2019-03-20] MEDS: HEPARIN SODIUM/DEXTROSE 25,000 UNITS/500 ML BAG IV SCH (07:58)
[2019-03-20] MEDS: METOPROLOL SUCC 50MG EXT REL TAB PO SCH (08:01)
[2019-03-20] MEDS: ATORVASTATIN 40 MG TAB PO SCH (08:01)
--- NOTE | 2019-03-20 13:01 | Cardiology Progress Note ---
Date of Service March 20, 2019 Assessment & Plan (1) Chronic atrial fibrillation: (2) TIA (transient ischemic attack): The patient will be discharged today after he has been instructed on Lovenox injections. I will arrange follow-up with the coag clinic as well as our office. Subjective The patient is walking the hallways without complaints. Review of Systems Review of Systems: All systems reviewed & are unremarkable except as noted in HPI & below Nothing additional to add. Physical Exam Physical Exam: General: no acute distress and stated age Head: normocephalic, no masses, lesions, tenderness or abnormalities Eyes: conjunctiva are pink and non-injected, sclera clear Neck: supple, no adenopathy, no bruits, normal jugular venous pulse, no hepatojugular reflux Chest: normal shape and normal respiratory effort Lungs: clear to auscultation and percussion Cardiac Exam: - regular rate & rhythm, no murmurs gallops or rubs - normal S1, normal S2 Pulses: 2(+) throughout Abdomen: abdomen soft, non-tender, no abnormal masses and no hepatosplenomegaly Musculoskeletal: no gait disturbance, no joint inflammation, no deforming arthritis Extremities: no edema and no cyanosis Neuro: grossly normal exam Results & Data Vital Signs (Past 12 Hours) Vital Signs Temp Pulse Resp BP BP Pulse Ox 03/20/19 11:12 36.5 C 79 19 111/77 94 03/20/19 07:28 36.7 C 70 18 113/56 L 95 03/20/19 03:21 36.4 C L 105 H 18 119/74 97 Laboratory Results Laboratory Results - last 24 hr 03/18/19 03/20/19 03/20/19 06:25 05:14 05:14 PT 11.3 INR 1.1 APTT 54.1 H* PTT Ratio 2.0 Sodium 142 Potassium 4.1 Chloride 111 H Carbon Dioxide 27 Anion Gap 4.0 BUN 21 H Creatinine 1.01 Est Cr Clr Drug Dosing 95.6 Est GFR ( Amer) 88.8 Est GFR (Non-Af Amer) 76.6 BUN/Creatinine Ratio 20.9 H Glucose 101 H Calcium 8.6 Magnesium 2.3 Anti-Cardiolipin IgG Ab <14 Medications Administered Current Inpatient Medications Acetaminophen (Tylenol) 650 mg PO Q4H PRN PRN Reason: Pain or Fever Stop: 04/16/19 22:46 Atorvastatin Calcium (Lipitor) 40 mg PO QAM [facility] Stop: 04/18/19 17:59 Last Admin: 03/20/19 08:01 Dose: 40 mg Documented by: Enoxaparin Sodium (Lovenox) 120 mg SQ Q12H [facility] Stop: 04/19/19 12:29 Promethazine HCl 12.5 mg/ (Sodium Chloride) 50.5 mls @ 202 mls/hr IV Q6H PRN PRN Reason: Nausea And Vomiting Stop: 04/16/19 22:46 Metoprolol Succinate (Toprol Xl) 50 mg PO BID [facility] Stop: 04/18/19 09:29 Last Admin: 03/20/19 08:01 Dose: 50 mg Documented by: Miscellaneous Information (Pharmacist Discharge Med Rec Consult) 1 ea N/A UD PRN PRN Reason: Consult Stop: 04/16/19 22:46 Morphine Sulfate (Morphine Sulfate) 4 mg IV Q4H PRN PRN Reason: Pain Stop: 03/31/19 22:46 Oxycodone/Acetaminophen (Percocet 10/325mg) 1 tab PO Q8 PRN PRN Reason: Pain Stop: 03/31/19 22:46 Last Admin: 03/19/19 23:49 Dose: 1 tab Documented by: Warfarin Sodium (Coumadin) 5 mg PO DAILY@1600 [facility] Stop: 04/18/19 15:59 Last Admin: 03/19/19 16:03 Dose: 5 mg Documented by:
[2019-03-20] MEDS ORDERED: ENOXAPARIN INJ 120 MG/0.8 ML SYR SQ SCH (13:15)
--- NOTE | 2019-03-20 13:46 | Hospitalist Progress Note ---
Date of Service March 20, 2019 Assessment & Plan (1) Stroke: Present on admission with slurred speech CT head showed no acute intracranial abnormality. CTA head/Neck showed 5 mm thrombus involves a distal left M2 branch. MRI brain multiple small acute infarcts within the left frontal, parietal and temporal lobes, measuring up to 9 mm. MRA head showed redemonstration of focal thrombus within an M2/M3 branch of the left MCA. Starting on heparin drip and Coumadin has been started as well from 03/19/2019 Neuro on board-appreciate input and recommendation Continue monitor closely in tele No neurological symptoms No problem with ambulation Will be discharged home this afternoon (2) Atrial fibrillation with RVR: Chronic atrial fibrillation Found to be in Afib with RVR with HR 140 Stopped taking Xarelto in 12/2018 due to cost Self stopped metoprolol succinate in 02/2019 Received IV cardizem 20mg x1 in the ER Continue Metoprolol 25mg PO BID Appreciate cardiology input and recommendation Echo-atrial fibrillation with mildly elevated ventricular rates, mild concentric LVH, severe global hypokinesis with EF of 25 to 30%, mild TR and compared to the prior study dated 10/10/2016 there has been interval decline in the LV function Has been on heparin and Coumadin Has been started on Lovenox and Coumadin Outpatient coag clinic appointment on Sunday (3) Chronic pain: Chronic neck, back, knee pain On Percocet prn Disposition Continue monitor in Tele Discharge home this afternoon Subjective 03/19/2019 The patient was seen and examined in telemetry unit He has been feeling a lot better and denies any significant symptoms No chest pain, palpitation, shortness of breath, no abdominal pain nausea and or vomiting Denies any numbness and/or tingling involving any of the extremities 03/20/2019 The patient was seen and examined in telemetry unit He denies any symptoms today He has had physical therapy and did well Denies any palpitation and/or chest pain and no neurological symptoms Review of Systems Review of Systems: All systems reviewed and are unremarkable except as noted below Neurologic: no problem reported Physical Exam Physical Exam: Sitting on a chair without any acute symptoms Constitutional: well developed, well nourished and + obese; no acute distress and not ill appearing Eyes: PERRL, conjunctivae normal, anicteric sclerae ENMT: external ear and nose normal, oropharynx normal Neck: trachea midline, no thyromegaly Respiratory: normal respiratory effort; no respiratory distress Auscultation: lungs clear to auscultation bilaterally Cardiovascular: Rate/Rhythm: + abnormal rate and + abnormal rhythm Gastrointestinal (Abdomen): Inspection/Auscultation: abdomen normal to inspection and normal bowel sounds Percussion/Palpation: abdomen soft; abdomen nontender Musculoskeletal: No acute arthritis in any joints Neurologic: moves all extremities; no focal motor deficits Results & Data ([facility]) Vital Signs (Past 12 Hours) Vital Signs Temp Pulse Resp BP BP Pulse Ox 03/20/19 11:12 36.5 C 79 19 111/77 94 03/20/19 07:28 36.7 C 70 18 113/56 L 95 03/20/19 03:21 36.4 C L 105 H 18 119/74 97 Laboratory Results [facility] 03/20/19 05:14 Sodium 142 Potassium 4.1 Chloride 111 H Carbon Dioxide 27 BUN 21 H Creatinine 1.01 Glucose 101 H Calcium 8.6 Medications Administered Current Inpatient Medications Acetaminophen (Tylenol) 650 mg PO Q4H PRN PRN Reason: Pain or Fever Stop: 04/16/19 22:46 Atorvastatin Calcium (Lipitor) 40 mg PO QAM [facility] Stop: 04/18/19 17:59 Last Admin: 03/20/19 08:01 Dose: 40 mg Documented by: Enoxaparin Sodium (Lovenox) 120 mg SQ Q12H [facility] Stop: 04/19/19 13:14 Promethazine HCl 12.5 mg/ (Sodium Chloride) 50.5 mls @ 202 mls/hr IV Q6H PRN PRN Reason: Nausea And Vomiting Stop: 04/16/19 22:46 Metoprolol Succinate (Toprol Xl) 50 mg PO BID [facility] Stop: 04/18/19 09:29 Last Admin: 03/20/19 08:01 Dose: 50 mg Documented by: Miscellaneous Information (Pharmacist Discharge Med Rec Consult) 1 ea N/A UD PRN PRN Reason: Consult Stop: 04/16/19 22:46 Morphine Sulfate (Morphine Sulfate) 4 mg IV Q4H PRN PRN Reason: Pain Stop: 03/31/19 22:46 Oxycodone/Acetaminophen (Percocet 10/325mg) 1 tab PO Q8 PRN PRN Reason: Pain Stop: 03/31/19 22:46 Last Admin: 03/19/19 23:49 Dose: 1 tab Documented by: Warfarin Sodium (Coumadin) 5 mg PO DAILY@1600 MARGIE Stop: 04/18/19 15:59 Last Admin: 03/19/19 16:03 Dose: 5 mg Documented by:
[2019-03-20] MEDS ORDERED: STROKE PATIENT DISCHARGE ONE (14:42)
--- NOTE | 2019-03-20 15:04 | Pharmacy Report ---
Pharmacist Stroke Counseling - Date of Service March 20, 2019 - Scope: Pharmacy has been consulted to provide medication discharge counseling for this patient admitted with ischemic stroke as per the Pharmacist Discharge Counseling for Stroke Patients Protocol. - Medications on Discharge: Home Medications Medication Instructions Recorded Confirmed oxycodone-acetaminophen [Percocet] 1 tab PO Q8 PRN 03/17/19 03/17/19 New Rx's Medication Instructions Recorded atorvastatin 40 mg PO QAM #30 tab 03/20/19 enoxaparin [Lovenox] 120 mg SUBCUT Q12H #0.8 ml 03/20/19 metoprolol succinate 50 mg PO BID #60 tab 03/20/19 warfarin [Coumadin] 5 mg PO DAILY@1600 #30 tab 03/20/19 - Action: The above medications, specifically ones for stroke treatment/prophylaxis, have been reviewed in detail with the patient and his prior to discharge. This includes indication, common adverse reactions, drug interactions, and medication administration. Medication counseling has been employed using the teach-back method to ensure understanding. - Outcome: The patient and his have demonstrated understanding of the medications. Please note, they are aware that the pharmacist will call them within 72 hours post-discharge to confirm that the appropriate medications are being taken and answer any further medication related questions the patient might have at that time. Contact information Individual to be contacted: patient Phone number: [phone] Best time to call: anytime Additional comments: Patient and pleasant to meet with, reviewed all questions and provided pill box, which will be especially helpful if patient has different doses of warfarin throughout the week. Thank you for allowing pharmacy to be involved in the care of this patient. Please call [phone] or [phone] with any additional questions
[2019-03-20] MEDS: WARFARIN SOD 5 MG TAB PO SCH (16:01)
--- NOTE | 2019-03-21 13:37 | Pharmacy Report ---
Pharmacist Post D/C Phone Note - Phone Note: Date of phone call: March 21, 2019. The patient and/or patient front office representative(s) were unable to be reached for a follow-up phone call within the 72 hour time frame. Discharge counseling pharmacist contact information has already been provided to the patient should questions arise. Thank you for allowing us to be involved in the care of this patient. - Home Medications: Home Medications Medication Instructions Recorded Confirmed oxycodone-acetaminophen [Percocet] 1 tab PO Q8 PRN 03/17/19 03/17/19 New Rx's Medication Instructions Recorded atorvastatin 40 mg PO QAM #30 tab 03/20/19 enoxaparin [Lovenox] 120 mg SUBCUT Q12H #0.8 ml 03/20/19 metoprolol succinate 50 mg PO BID #60 tab 03/20/19 warfarin [Coumadin] 5 mg PO DAILY@1600 #30 tab 03/20/19
--- NOTE | 2019-03-21 17:41 | Discharge Summary ---
Date of Service March 21, 2019 Admission HPI Per Admitting Provider Pt is 68 y/o M with PMH chronic atrial fibrillation, goiter, chronic pain presented to ER with c/o "garbled speech". Pt reports around 9AM today at work was noted that he was having difficulty with his words and using wrong words and also questionable slurred speech. Around 4pm returned home and noticed pt having trouble producing words and some words seemed slurred. Denies any DESHPANDE, dizziness, vision changes, noted facial drooping, extremity paresthesias or weakness. In ER pt's symptoms have resolved. Pt follows with Dr Zaldivar - cardiology. In 12/2018 pt was switched from sotalol to metoprolol succinate 50mg BID. Had CHADSVASC score of 1 and pt wished to stop Xarelto and stopped taking it in 12/2018. Pt states stopped taking metoprolol in 02/2019 because he states he didn't think he needed it anymore. Pt reports chronic lower extremity edema if legs are dependant and improves with elevation. Denies any increased edema. Denies fever/chills, diaphoresis, N/V/D/C, syncope, CP, SOB, orthopnea, palpitations, cough, sore throat, choking, otalgia, rhinorrhea, abdominal pain, paresthesias, weakness, extremity weakness, rashes, urinary symptoms. Admission Exam Per Admitting Provider Physical Exam: General: no distress, WDWN Head: normocephalic, atraumatic Eyes: PERRL, EOM's intact, no nystagmus, conjunctiva non-injected, anicteric ENT: normal inspection external ears, nose, mucous membranes moist Neck: supple, trachea midline Lungs: clear, no respiratory distress, no wheezing/rhonchi/rales CV: RRR, no murmur, trace pretibial edema Abd: normal BS, soft, non-tender Ext: no cyanosis, no calf tenderness Neuro: A&O x 3, normal affect, facial sensation is intact and symmetric, face is strong and symmetric, hearing grossly intact, soft palate elevates symmetrically, no dysarthria, shoulder shrug intact, tongue is midline, normal movement, Strength 5/5 upper and lower extremities Skin: warm, dry Principal Diagnosis Stroke-multiple small acute infarcts within the left frontal, parietal and temporal lobes, measuring up to 9 mm. Atrial fibrillation Discharge Exam Constitutional well developed, well nourished and + obese; no acute distress and not ill appearing Eyes PERRL, conjunctivae normal, anicteric sclerae ENMT external ear and nose normal, oropharynx normal Neck trachea midline, no thyromegaly Respiratory normal respiratory effort; no respiratory distress Auscultation: lungs clear to auscultation bilaterally Cardiovascular Rate/Rhythm: + abnormal rate and + abnormal rhythm Gastrointestinal (Abdomen) Inspection/Auscultation: abdomen normal to inspection and normal bowel sounds Percussion/Palpation: abdomen soft; abdomen nontender Neurologic moves all extremities; no focal motor deficits Discharge Data Allergies Allergy/AdvReac Type Severity Reaction Status Date / Time No Known Allergies Allergy Unverified 03/17/19 18:22 Consultations 03/17/19 20:07 ED Decision to Admit Stat 03/17/19 22:47 Consult Cardiology Routine Consult Case Management - Discharge Planning Routine Consult Neurology Routine Ordered Studies 03/17/19 17:53 CT angio head w con Stat CT head/brain wo con Stat 03/17/19 17:54 CT angio neck with con Stat 03/18/19 00:39 MR angio head wo con Urgent MR brain wo con Urgent 03/19/19 04:30 CT head/brain wo con Urgent Hospital Course (1) Stroke: Present on admission with slurred speech CT head showed no acute intracranial abnormality. CTA head/Neck showed 5 mm thrombus involves a distal left M2 branch. MRI brain multiple small acute infarcts within the left frontal, parietal and temporal lobes, measuring up to 9 mm. MRA head showed redemonstration of focal thrombus within an M2/M3 branch of the left MCA. Starting on heparin drip and Coumadin has been started as well from 03/19/2019 Neuro on board-appreciate input and recommendation Continue monitor closely in tele No neurological symptoms No problem with ambulation Will be discharged home this afternoon (2) Atrial fibrillation with RVR: Chronic atrial fibrillation Found to be in Afib with RVR with HR 140 Stopped taking Xarelto in 12/2018 due to cost Self stopped metoprolol succinate in 02/2019 Received IV cardizem 20mg x1 in the ER Continue Metoprolol 25mg PO BID Appreciate cardiology input and recommendation Echo-atrial fibrillation with mildly elevated ventricular rates, mild concentric LVH, severe global hypokinesis with EF of 25 to 30%, mild TR and compared to the prior study dated 10/10/2016 there has been interval decline in the LV function Has been on heparin and Coumadin Has been started on Lovenox and Coumadin Outpatient coag clinic appointment on Sunday (3) Chronic pain: Chronic neck, back, knee pain On Percocet prn Disposition Continue monitor in Tele Discharge home this afternoon Total Time Total Time Spent Total Time Spent (In Minutes): 35 minutes Total Time Includes: Examination of the Patient, Discharge Planning, Medication Reconciliation and Communication With Other Providers Discharge Plan Discharge Items Patient Disposition: Home - Self-Care Reason For Visit: AF, TIA Discharge Diagnosis: Stroke-multiple small acute infarcts within the left frontal, parietal and temporal lobes, measuring up to 9 mm. Atrial fibrillation Condition on Discharge: Good Activity: Resume your previous activity Non-emergency contact: Primary Care Provider Call non-emergency contact if: you have any medication questions and your symptoms worsen Follow-up/Referrals: Carmela Jackson MD [Physician] - 03/24/19 3:25 pm Jordan Medina MD [Primary Care Provider] - 03/25/19 1:10 pm (03/25/2019 1:10 PM with Jordan Medina MD Family [facility] Coagulation clinic notified for checking of your INR on Sunday [facility] cardiology will call you for an appointment ) Diet: Heart Healthy Addtl Attending Provider Instructions: Please have follow-up appointment with coagulation clinic to keep your INR between 2-3 Take precaution to avoid falls Pending Studies at Discharge: No Stand-Alone Forms: Medications to Prevent Stroke, [facility], Smoking Cessation Medications and DC Order Prescriptions: New enoxaparin [Lovenox] 120 mg/0.8 mL Syringe 120 mg subcut Q12H Qty: 0.8 RF: 6 warfarin [Coumadin] 5 mg Tablet 5 mg PO DAILY@1600 Qty: 30 RF: 0 atorvastatin 40 mg Tablet 40 mg PO QAM Qty: 30 RF: 0 metoprolol succinate 50 mg Tablet Extended Release 24 Hr 50 mg PO BID Qty: 60 RF: 0 Continued oxycodone-acetaminophen [Percocet] 10-325 mg tablet 1 tab PO Q8 PRN (Reason: Pain) RF: 0 Discharge Orders: Discharge Order (Routine); Ordered 03/20/19 Ordered By: Shahida Yanez/Other Patient Handouts: Stroke Sx, TIA, Atorvastatin tablets, Warfarin tablets, Enoxaparin injection, Metoprolol extended-release capsules Admission Data Admit Date/Time: 03/17/19 21:58 Attending Provider: Shahida Estrada Admit Provider: Honorio Gordon Primary Care Provider: Jordan Medina Other Providers: Honorio Gordon ; Gabino Zaldivar ; Carmela Jackson ; Genet Diamond Other Interventions: Discharge Summary Assessment (RN) Last Done: 03/20/19 14:47 DC Date/Time DO NOT enter until pt leaves facility: 03/20/19 16:05
== END 2019-03-20 16:05 | disposition home or self-care (01) | DRG 65 ==
LOC: ED 17:32 → 2S 21:58 → SUATTDRO 21:58 → 2S 22:18